=== PATIENT | female | born 1985 | race Caucasian/White ===

== ENCOUNTER → 2016-11-02 | Outpatient (CLI) | payer OTHER ==
[2016-11-02 13:51] LABS: Basophils % (A) 0 %; CH 30.7; CHCM 32.5; Eosinophils # (A) 0.2 k/uL (0-0.7); Eosinophils % (A) 2 %; HCT 41.2 % (34.0-46.0); HDW 2.66; HGB 13.5 gm/dL (11.4-16.0); Luc # (Auto) 0.22; Luc % (Auto) 2; Lymphocytes # (A) 2.6 k/uL (1.0-4.8); Lymphocytes % (A) 24 %; MCHC 32.7 g/dL (31.0-37.0); Mean Platelet Volume 6.6; Monocytes # (A) 0.5 k/uL (0-1.0); Monocytes % (A) 4 %; Neutrophils # (A) 7.6 k/uL (1.3-7.7); Neutrophils % (A) 68 %; RBC 4.34 m/uL (3.80-5.40); RDW 13.6 % (11.5-15.5); WBC 11.2 k/uL (3.8-10.6); WBC (Perox) 11.68
[2016-11-02 14:11] LABS: ALT 76 U/L (9-52); AST 53 U/L (14-36); Alkaline Phosphatase 151 U/L (38-126); Anion Gap 12 mmol/L; Blood Urea Nitrogen 5 mg/dL (7-17); Calcium 9.4 mg/dL (8.4-10.2); Carbon Dioxide 24 mmol/L (22-30); Chloride 106 mmol/L (98-107); Cholesterol 171 mg/dL (<200); Creatine Kinase 80 U/L (30-135); Glucose 91 mg/dL (74-99); HDL Cholesterol 49 mg/dL (40-60); Iron 95 ug/dL (37-170); Non-African American GFR(MDRD) >60 (>60 ml/min/1.73 sqM); Potassium 4.3 mmol/L (3.5-5.1); Sodium 142 mmol/L (137-145); Total Bilirubin 0.5 mg/dL (0.2-1.3); Triglycerides 122 mg/dL (<150)
[2016-11-02 14:20] LABS: % Iron Saturation 31.7 % (20-50); Total Iron Binding Capacity 300 ug/dL (265-497)
[2016-11-02 14:55] LABS: Erythrocyte Sedimentation Rate 40 mm/hr (0-20)
[2016-11-02 15:00] LABS: Vitamin B12 544 pg/mL (239-931)
[2016-11-09 07:11] LABS: Cortisol, Urine Free by LC-MS 4.9 ug/L
== END | disposition home or self-care (01) ==
LOC: LABWHC1 13:01
PROVIDERS: ATTEND Family Medicine
DX: Z00.00 Encounter for general adult medical examination without abnormal findings (principal); T38.0X5A Adverse effect of glucocorticoids and synthetic analogues, initial encounter; D64.9 Anemia, unspecified
CPT/HCPCS: 36415; 80053; 80061; 82306; 82530; 82533; 82550; 82607; 82728; 83540; 83550; 84443; 85025; 85652

== ENCOUNTER 2016-11-07 06:42 | Day surgery (SDC) | payer OTHER ==
[2016-11-03 11:16] VITALS: BMI 33.4
[2016-11-07 08:08] VITALS: RESP 16; TEMP 96.8
[2016-11-07] MEDS ORDERED: LACTATED RINGERS 1,000 ML IV ONE (08:22)
[2016-11-07] MEDS ORDERED: LIDOCAINE 1% 20 ML VIAL (10MG/ML) FOR IV START INTRADERMA ONE (08:24)
[2016-11-07] MEDS ORDERED: LACTATED RINGERS 1,000 ML IV SCH (08:30)
[2016-11-07] MEDS ORDERED: fentaNYL (PF) 50 MCG/ML 2 ML AMP ONE (09:04)
[2016-11-07] MEDS ORDERED: BUPIVACAINE (PF) 0.5% 30 ML VIAL ONE (09:04)
[2016-11-07] MEDS ORDERED: MIDAZOLAM 2 MG/2 ML VIAL ONE (09:04)
[2016-11-07] MEDS ORDERED: TRIAMCINOLONE ACETONIDE 40 MG/ML 1 ML VIAL ONE (09:04)
--- NOTE | 2016-11-07 09:22 | P.PCN ---
Date of Procedure: 11/07/16 Procedure(s) Performed: Preoperative diagnoses= 1-bilateral sacroiliitis. Postoperative diagnoses= same as preoperative diagnosis. Procedure= bilateral sacroiliac joint steroid injection under fluoroscopic guidance. Anesthesia= conscious sedation with Versed 2 mg and fentanyl 50 micrograms and local infiltration with lidocaine 1% 4 ml Estimated blood loss=minimal. Procedure indication= the patient had a history of severe chronic low back pain , diagnosed with sacroiliitis and lumbar sacral facet arthropathy unresponsive to conservative treatment. Procedure description= the patient was seen and identified in the preoperative holding area, risks and benefits and alternative of the procedure and possible complications discussed with the patient, and he agreed with the preceding, patient signed the consent, an IV was started, and vital signs were monitored and were stable throughout the procedure, patient was placed in the prone position or table and the lumbosacral area was prepped and draped with a sterile fashion, vital signs were closely monitored during the procedure, the fluoroscopy camera was placed in the contralateral oblique view on the right sacroiliac joint and the lower part of the joint was identified, local infiltration of the skin and subcutaneous tissue with lidocaine 1% 2 mL then a 22-gauge Quincke-type spinal needle advanced slowly under fluoroscopy and placed in the posterior and inferior border of the right sacroiliac joint, placement confirmed with AP and lateral view, and after appropriate needle placement confirmed and after negative aspiration for heme and CSF and there was no paresthesia during the injection, 3 ml of Marcaine 0.5% and 40 mg of Kenalog injected after negative aspiration, the needle removed, and the entire same procedure was repeated for the left sacroiliac joint Patient tolerated the procedure well without any complication, The patient returned to supine position after the back was cleaned and a Band- Aid applied, the patient transported to recovery room in stable condition and he was monitored for 30 minutes before he was discharged home and then patient was reexamined before going home and patient was discharged in stable condition and patient will follow up with the pain clinic in a few weeks
[2016-11-07] MEDS ORDERED: IV FLUID CONTINUATION 1,000 ML IV ONE (09:30)
--- NOTE | 2016-11-07 09:43 | FL ---
EXAMINATION TYPE: FL guided pain mgmt statistic DATE OF EXAM: 11/07/2016 9:29 AM HISTORY: Pain 7 sec-2 paper films-cyndi si thelmats
[2016-11-07 10:15] VITALS: BP 129/70; PULSE 95
== END 2016-11-07 10:05 | disposition home or self-care (01) ==
LOC: ORPAIN 06:42
PROVIDERS: ATTEND Specialist
DX: G89.29 Other chronic pain (principal); M46.1 Sacroiliitis, not elsewhere classified; M46.97 Unspecified inflammatory spondylopathy, lumbosacral region; J45.909 Unspecified asthma, uncomplicated; Z88.8 Allergy status to other drugs, medicaments and biological substances
CPT/HCPCS: 80307; J2250; J3301; J3010; G0260; 80364

== ENCOUNTER → 2016-11-22 | Outpatient (CLI) | payer OTHER ==
[2016-11-22 12:41] VITALS: BP 127/80; PULSE 81; RESP 16; TEMP 98.1
--- NOTE | 2016-11-23 08:32 | P.PN ---
Subjective This is follow-up visit for this patient with a history of severe and chronic low back pain , and she will stay close with sacroiliitis, we have done interventional pain management injection, bilateral sacroiliac joint steroid injection under fluoroscopy guidance x2 , and she reported that the injection improved her low back pain significantly, but she is currently complaining of severe neck pain, with radiation towards the shoulder blade area bilaterally, she denies any motor or sensory deficit, she denies any fever or night sweats., And she reported that the neck pain increased with any movement of her neck, she had MRI of the cervical spine done more than years ago and it showed patient had C5 6 disc desiccation, complaining of migraine headache and she is currently on, verapamil 180 mg daily and Imitrex when necessary and Topamax 50 mg twice a day, ( for management of her migraine headache ) and is currently on pain medications Percocet 7.5/325 q 8 hours when necessay, Patient denies any side effects of the medication, denies excessive drowsiness or sleepiness, denies suicidal ideation, and reports that the current pain medication is NOT helping To control the pain and improve activity of daily living Physical Examinations : 1-Constitutiona : Cooperative , not in acute distress . 2-HEENT : nech ; supple , no Lymphadenopathy , no Thyromegaly , normal thyroid size . eyes : no ptosis , no icterus, no photophobia . ENT : normal of hearing , normal oropharynx , no Thrush . 3- Respiratory : Chest clear to auscultations Bilaterally , no wheezing , no Rhonchi . 4- Cardiovascular : regular rate and rhythem , S1 , S2 , no S3 , no S4. 5- Gastrointestinal : abdomen soft no tenderness , bowel sounds positive all four quadrents , no organomegally . 6- Genitourinary : Defferred . 7- neurologic : Cranial nerve II to XII intact , no focal neurological deffecit . 8-psychatric : alert , oriented X 3 , appropriate affect , intact judgment and insight . 9-Lymphatic : no Lymphadenopathy . 10- musculoskeltal : exams of the cervical spine = motor strength normal bilateral upper extremities facet loading test cervical area positive. Multiple trigger point identified in the cervical paravertebral muscles and the shoulder blade area exams of the Lumber spine = motor strength lower extremities ,thigh and legs .5/5 Assessment and plan = - Chronic low back pain secondary to sacroiliitis, low back pain improved after the sacroiliac joint steroid injection. Plan complaining of neck pain mostly secondary to cervical degenerative disc disease and myofascial pain syndrome cervical are - chronic and current use of high-risk medication (Opioids). The patient was counseled about risk of opioid use, psychological risk associated with opioids and was orally counseled to not overuse , abuse , divert ,or sell dictations to take medications as prescribed only , and to restore medication in safe location , and the patient counseled against driving while using narcotic medications, and also not to use alcohol or any illicit recreational drugs the patient's verbalized understanding that the lack of compliance will result in failure to renew narcotic prescription and possible discharge from the clinic - diagnoses, prognosis, and treatment options including but not limited to physical therapy, surgical interventions, interventional therapies and medication management including narcotics and adjuvant medication were discussed with the patient and all The questions answered -medication management =1-refill Percocet 17.5/325 every 8 hours when necessary for pain disp 30 -procedure= patient could benefit from cervical epidural steroid injection under fluoroscopy guidance and trigger point injections and cervical area Objective - Vital Signs Vital signs: Vital Signs Temp 98.1 F 11/22/16 12:34 Pulse 81 11/22/16 12:34 Resp 16 11/22/16 12:34 BP 127/80 11/22/16 12:34 Pulse Ox 100 11/22/16 12:34 Intake & Output 11/22/16 11/23/16 11/23/16 18:59 06:59 18:59 Weight 85.275 kg
== END | disposition home or self-care (01) ==
LOC: PNWHC3 11:50
PROVIDERS: ATTEND Specialist
DX: M50.30 Other cervical disc degeneration, unspecified cervical region (principal); G89.29 Other chronic pain; M46.1 Sacroiliitis, not elsewhere classified; M79.1 Myalgia; Z79.891 Long term (current) use of opiate analgesic
CPT/HCPCS: 99211

== ENCOUNTER 2016-12-03 10:51 | Emergency (ER) | payer OTHER ==
[2016-12-03 11:03] VITALS: RESP 18
--- NOTE | 2016-12-03 11:33 | ED ---
Abdominal Pain HPI - General Chief Complaint: Abdominal Pain Stated Complaint: FEMALE , SPOTTING AND CRAMPING Time Seen by Provider: 12/03/16 11:16 Source: patient Mode of arrival: ambulatory Limitations: no limitations - History of Present Illness Initial Comments: Patient is a 31-year-old female with history of anxiety/depression on lithium, hysterectomy presenting with vaginal bleeding. Patient states last night she had an uneventful intercourse with her fianc. She states this morning she woke up with diffuse lower abdominal cramping. Patient states she went to the bathroom and wiped having 10 spots of blood coming from her vagina. Patient denies worsening pain during intercourse. Patient did not try any further pain. Patient came to the ER due to vaginal spotting. She denies fever, chills , chest pain, shortness breath, nausea, vomiting, diarrhea. Denies dysuria, hematuria. Denies rectal bleeding. Patient states she had a hysterectomy 10 years ago as she had a mass on her uterus and had dysfunctional uterine bleeding. - Related Data Home Medications Medication Instructions Recorded Confirmed Famotidine [Pepcid] 20 mg PO BID 02/07/15 12/03/16 Albuterol Inhaler [Ventolin Hfa 2 puff INHALATION RT-QID PRN 09/11/15 12/03/16 Inhaler] Albuterol Nebulized [Ventolin 3 ml INHALATION RT-QID PRN 09/11/15 12/03/16 Nebulized] Montelukast [Singulair] 10 mg PO QAM 09/11/15 12/03/16 Verapamil Sr [Isoptin Sr] 180 mg PO HS 03/10/16 12/03/16 Furosemide [Lasix] 40 mg PO BID 07/01/16 12/03/16 [place] Carbonate 300 mg PO TID 07/01/16 12/03/16 Ondansetron Odt [Zofran Odt] 4 mg PO Q8HR PRN 07/01/16 12/03/16 Potassium Chloride ER [K-Dur 10] 10 meq PO TID 07/01/16 12/03/16 SUMAtriptan SUCCINATE [Imitrex] 50 mg PO BID PRN 07/01/16 12/03/16 Ferrous Sulfate [Feosol] 325 mg PO DAILY 09/15/16 12/03/16 Multivitamins, Thera [Multivitamin] 1 tab PO DAILY 09/15/16 12/03/16 oxyCODONE-APAP 7.5-325MG [Percocet 1 tab PO Q8H PRN 09/15/16 12/03/16 7.5-325 mg] Chlorhexidine Gluconate [Peridex] 15 ml PO BID 12/03/16 12/03/16 Doxepin HCl [SINEquan] 50 mg PO HS 12/03/16 12/03/16 Lactulose 10 gm PO BID PRN 12/03/16 12/03/16 Mineral Oil [Fleet Mineral Oil] 133 ml RECTAL ONCE PRN 12/03/16 12/03/16 Topiramate [Topamax] 50 mg PO BID 12/03/16 12/03/16 busPIRone HCl [Buspar] 10 mg PO TID 12/03/16 12/03/16 Previous Rx's Medication Instructions Recorded Ibuprofen [Motrin] 600 mg PO Q6HR PRN #30 tab 12/03/16 Allergies Allergy/AdvReac Type Severity Reaction Status Date / Time quetiapine fumarate AdvReac Severe Tremors/Maxx Verified 12/03/16 14:47 [From Seroquel] liam Review of Systems ROS Statement: Those systems with pertinent positive or pertinent negative responses have been documented in the HPI. Constitutional: No fever and no chills. HENT: No congestion, no rhinorrhea and no sore throat. Eyes: No discharge and no redness. Respiratory: No cough and no shortness of breath. Cardiovascular: No chest pain and no palpitations. Gastrointestinal: No nausea, no vomiting, no abdominal pain and no diarrhea. Genitourinary: No dysuria and no hematuria. Positive vaginal bleeding. Musculoskeletal: No back pain and no arthralgias. Skin: No pallor and no rash. Neurological: No dizziness and No headaches. ROS Other: All systems not noted in ROS Statement are negative. Past Medical History Past Medical History: Asthma, Fibromyalgia Additional Past Medical History / Comment(s): Anxiety, depression, chronic back pain. degenerative disc disease, migraines History of Any Multi-Drug Resistant Organisms: None Reported Past Surgical History: Hysterectomy Additional Past Surgical History / Comment(s): PREVIOUS EPIDURAL PAIN INJECTIONS Past Anesthesia/Blood Transfusion Reactions: No Reported Reaction Past Psychological History: Anxiety, Bipolar, Depression, PTSD Smoking Status: Never smoker Past Alcohol Use History: None Reported Past Drug Use History: None Reported - Past Family History Mother Family Medical History: No Reported History Father Family Medical History: Cancer, Congestive Heart Failure (CHF), COPD, Diabetes Mellitus, Hypertension Additional Family Medical History / Comment(s): throat , mouth and lung CA. triple bypass. stents., General Exam - General Exam Comments Initial Comments: Constitutional: Patient appears well-developed and well-nourished. No distress. Head: Normocephalic and atraumatic. Eyes: Conjunctivae and EOM are normal. Right eye exhibits no discharge. Left eye exhibits no discharge. No scleral icterus. Neck: Normal range of motion. Neck supple. Cardiovascular: Normal rate and regular rhythm. No murmur heard. Pulmonary/Chest: Effort normal and breath sounds normal. No respiratory distress. No wheezes. Abdominal: Soft. No distension. Mild suprapubic and right lower quadrant tenderness.. There is no rebound and no guarding. Genitourinary: Patient refusing pelvic exam at this time. Musculoskeletal: Normal range of motion. No edema or tenderness. Neurological: Patient alert and oriented to person, place, and time. Skin: Skin is warm and dry. Not diaphoretic. Nursing notes and vitals reviewed. Limitations: no limitations Course Vital Signs 12/03/16 12/03/16 11:00 13:57 Temperature 97.2 F L Pulse Rate 89 75 Respiratory 18 18 Rate Blood Pressure 125/85 121/71 O2 Sat by Pulse 99 100 Oximetry - Reevaluation(s) Reevaluation #1: 12/03/16 14:05 Patient with unremarkable ultrasound of pelvis. Patient still complaining of pain and wants repeat dose of pain medication. Patient's abdomen is soft and nontender now is worse earlier which was tender right lower quadrant. Patient offered home observation versus CAT scan for which she is requesting a CAT scan. CAT scan was ordered. Reevaluation #2: 12/03/16 14:58 Patient updated on results and agreeable to discharge with follow-up with OB/ [facility]. Medical Decision Making - Medical Decision Making Patient is a 31-year-old female presenting with vaginal spotting. Patient has a history of hysterectomy. Patient states she had intercourse last night. Patient woke up with vaginal spotting. Patient tender in the right lower quadrant. Patient with blood work showing WBC 13.4, platelets 532. Unremarkable BMP and magnesium. UA unremarkable. [place] within normal range. Pelvic ultrasound nondiagnostic. CAT scan shows a left ovarian cyst. No free fluid in the pelvis. Patient's pain controlled with IV fluids, Toradol and morphine. Patient resting completely in bed. Abdomen soft nontender. Prior to discharge, patient was resting comfortably in bed. Course of stay improved. Denies pain. Discussed physical exam and diagnostic tests with patient. Questions answered and patient is agreeable to discharge with close follow up with Primary Care Physician. Instructed to return to Emergency Department if symptoms worsen. Patient has Percocet at home for which she can use for severe pain. - Lab Data Result diagrams: 12/03/16 11:55 12/03/16 11:55 Lab Results 12/03/16 12/03/16 12/03/16 Range/Units 11:55 11:55 11:55 WBC 13.4 H (3.8-10.6) k/uL RBC 4.51 (3.80-5.40) m/uL Hgb 13.5 (11.4-16.0) gm/dL Hct 41.7 (34.0-46.0) % MCV 92.6 (80.0-100.0) fL MCH 30.0 (25.0-35.0) pg MCHC 32.4 (31.0-37.0) g/dL RDW 13.6 (11.5-15.5) % Plt Count 532 H (150-450) k/uL Neutrophils % 75 % Lymphocytes % 18 % Monocytes % 4 % Eosinophils % 2 % Basophils % 0 % Neutrophils # 10.0 H (1.3-7.7) k/uL Lymphocytes # 2.4 (1.0-4.8) k/uL Monocytes # 0.5 (0-1.0) k/uL Eosinophils # 0.3 (0-0.7) k/uL Basophils # 0.0 (0-0.2) k/uL Sodium 142 (137-145) mmol/L Potassium 3.9 (3.5-5.1) mmol/L Chloride 107 (98-107) mmol/L Carbon Dioxide 24 (22-30) mmol/L Anion Gap 11 mmol/L BUN 6 L (7-17) mg/dL Creatinine 0.80 (0.52-1.04) mg/dL Est GFR (MDRD) Af Amer >60 (>60 ml/min/1.73 sqM) Est GFR (MDRD) Non-Af >60 (>60 ml/min/1.73 sqM) Glucose 80 (74-99) mg/dL Calcium 9.3 (8.4-10.2) mg/dL Magnesium 2.1 (1.6-2.3) mg/dL Urine Color Urine Appearance (Clear) Urine pH (5.0-8.0) Ur Specific Dennis (1.001-1.035) Urine Protein (Negative) Urine Glucose (UA) (Negative) Urine Ketones (Negative) Urine Blood (Negative) Urine Nitrate (Negative) Urine Bilirubin (Negative) Urine Urobilinogen (<2.0) mg/dL Ur Leukocyte Esterase (Negative) Urine RBC (0-5) /hpf Urine WBC (0-5) /hpf Ur Squamous Epith Cells (0-4) /hpf Urine Bacteria (None) /hpf [place] 0.6 mmol/L Blood Type O Positive Blood Type Recheck No Antibody Screen NEGATIVE Spec Expiration Date 12/06/2016 - 235412/03/16 Range/Units 11:55 WBC (3.8-10.6) k/uL RBC (3.80-5.40) m/uL Hgb (11.4-16.0) gm/dL Hct (34.0-46.0) % MCV (80.0-100.0) fL MCH (25.0-35.0) pg MCHC (31.0-37.0) g/dL RDW (11.5-15.5) % Plt Count (150-450) k/uL Neutrophils % % Lymphocytes % % Monocytes % % Eosinophils % % Basophils % % Neutrophils # (1.3-7.7) k/uL Lymphocytes # (1.0-4.8) k/uL Monocytes # (0-1.0) k/uL Eosinophils # (0-0.7) k/uL Basophils # (0-0.2) k/uL Sodium (137-145) mmol/L Potassium (3.5-5.1) mmol/L Chloride (98-107) mmol/L Carbon Dioxide (22-30) mmol/L Anion Gap mmol/L BUN (7-17) mg/dL Creatinine (0.52-1.04) mg/dL Est GFR (MDRD) Af Amer (>60 ml/min/1.73 sqM) Est GFR (MDRD) Non-Af (>60 ml/min/1.73 sqM) Glucose (74-99) mg/dL Calcium (8.4-10.2) mg/dL Magnesium (1.6-2.3) mg/dL Urine Color Light Yellow Urine Appearance Clear (Clear) Urine pH 7.5 (5.0-8.0) Ur Specific Dennis 1.002 (1.001-1.035) Urine Protein Negative (Negative) Urine Glucose (UA) Negative (Negative) Urine Ketones Negative (Negative) Urine Blood Small H (Negative) Urine Nitrate Negative (Negative) Urine Bilirubin Negative (Negative) Urine Urobilinogen <2.0 (<2.0) mg/dL Ur Leukocyte Esterase Negative (Negative) Urine RBC <1 (0-5) /hpf Urine WBC <1 (0-5) /hpf Ur Squamous Epith Cells 2 (0-4) /hpf Urine Bacteria Rare H (None) /hpf [place] mmol/L Blood Type Blood Type Recheck Antibody Screen Spec Expiration Date Disposition Clinical Impression: Abdominal pain, Ovarian cyst Disposition: HOME SELF-CARE Condition: Good Instructions: Abdominal Pain (ED), Ovarian Cyst (ED) Prescriptions: Ibuprofen [Motrin] 600 mg PO Q6HR PRN #30 tab PRN Reason: pain Referrals: Fredis Palacio MD [Primary Care Provider] - 1-2 days Della Sargent DO [Doctor of Osteopathic Medicine] - 1-2 days
[2016-12-03 12:06] LABS: Basophils % (A) 0 %; CHCM 33.6; Eosinophils # (A) 0.3 k/uL (0-0.7); Eosinophils % (A) 2 %; HCT 41.7 % (34.0-46.0); HGB 13.5 gm/dL (11.4-16.0); Luc # (Auto) 0.21; Luc % (Auto) 2; Lymphocytes # (A) 2.4 k/uL (1.0-4.8); Lymphocytes % (A) 18 %; MCHC 32.4 g/dL (31.0-37.0); MCV 92.6 fL (80.0-100.0); Mean Platelet Volume 6.5; Monocytes # (A) 0.5 k/uL (0-1.0); Monocytes % (A) 4 %; Neutrophils % (A) 75 %; RBC 4.51 m/uL (3.80-5.40); RDW 13.6 % (11.5-15.5); WBC 13.4 k/uL (3.8-10.6); WBC (Perox) 13.42
[2016-12-03 12:11] LABS: Appearance,Urine Clear (Clear); Bacteria,Urine Rare /hpf; Bilirubin,Urine Negative (Negative); Glucose,Urine (UA) Negative (Negative); Ketones,Urine Negative (Negative); Leukocyte Esterase,Urine Negative (Negative); Nitrite,Urine Negative (Negative); PH, Urine 7.5 (5.0-8.0); Particle Count 1943; Protein,Urine Negative (Negative); RBC,Urine <1 /hpf (0-5); Specific Gravity,Urine 1.002 (1.001-1.035); Squamous Epithelial Cell,Urine 2 /hpf (0-4); UA Billing (MACRO vs. MICRO) MICRO; Urobilinogen,Urine <2.0 mg/dL (<2.0); WBC,Urine <1 /hpf (0-5)
[2016-12-03 12:15] LABS: Anion Gap 11 mmol/L; Blood Urea Nitrogen 6 mg/dL (7-17); Calcium 9.3 mg/dL (8.4-10.2); Carbon Dioxide 24 mmol/L (22-30); Chloride 107 mmol/L (98-107); Glucose 80 mg/dL (74-99); Lithium 0.6 mmol/L; Magnesium 2.1 mg/dL (1.6-2.3); Non-African American GFR(MDRD) >60 (>60 ml/min/1.73 sqM); Potassium 3.9 mmol/L (3.5-5.1); Sodium 142 mmol/L (137-145)
[2016-12-03] MEDS ORDERED: SODIUM CHLORIDE 0.9% 1,000 ML IV STA ×2 (12:41→13:55)
[2016-12-03] MEDS ORDERED: KETOROLAC 30 MG/ML 1 ML VIAL IVP STA (12:41)
--- NOTE | 2016-12-03 13:05 | US ---
EXAMINATION TYPE: US transvaginal DATE OF EXAM: 12/03/2016 12:50 PM COMPARISON: CT abdomen and pelvis March 09, 2016. CLINICAL HISTORY: Pain, patient states cramping and that she had 10 spots of blood on the toilet dagmar r after voiding. TECHNIQUE: Transvaginal (TV) pelvic ultrasound. Date of LMP: Patient states she had a hysterectomy 5-10 years prior, unsure of date EXAM MEASUREMENTS: Uterus: Surgically absent cm Endometrial Stripe: Surgically absent cm Right Ovary: not visualized Left Ovary: not visualized TECHNOLOGIST IMPRESSION: 1. Uterus: Surgically absent 2. Endometrium: Surgically absent 3. Right Ovary: not visualized, this could be due to atrophy/overlying bowel 4. Left Ovary: not visualized, this could be due to atrophy/overlying bowel 5. Bilateral Adnexa: wnl 6. Posterior cul-de-sac: wnl Uterus is surgically absent. No free fluid is seen in pelvic cul-de-sac. Neither ovary is clearly identified but no suspicious adnexal masses are seen bilaterally. IMPRESSION: No significant finding is seen to account for patient's symptoms.
[2016-12-03] MEDS ORDERED: RX INFO: IV CONTRAST WAS GIVEN 1 EACH MISC MISCELLANE PRN (13:39)
[2016-12-03] MEDS ORDERED: MORPHINE SULFATE 4 MG/ML SYRINGE IVP STA (13:55)
--- NOTE | 2016-12-03 14:39 | CT ---
EXAMINATION TYPE: CT abdomen pelvis w con DATE OF EXAM: 12/03/2016 2:13 PM COMPARISON: Prior CT abdomen pelvis February HISTORY: Vaginal bleeding today. Hysterectomy 5-[address] DLP: 1595.00 mGycm Automated exposure control for dose reduction was used. TECHNIQUE: Helical acquisition of images was performed from the lung bases through the pelvis. CONTRAST: Performed without Oral Contrast and with IV Contrast, patient injected with 100 mL of Omnipaque 300. FINDINGS: LUNG BASES: No significant abnormality is appreciated. LIVER/GB: The liver shows low attenuation possibly due to fatty infiltration. Focal fatty sparing adj acent to the gallbladder. Gallbladder is normal. PANCREAS: No significant abnormality is seen. SPLEEN: No significant abnormality is seen. ADRENALS: No significant abnormality is seen. KIDNEYS: No significant abnormality is seen. RETROPERITONEAL ADENOPATHY: None visualized REPRODUCTIVE ORGANS: Postop changes are stable status post hysterectomy, ovaries show possible cystic focus on the left URINARY BLADDER: No significant abnormality is seen. PELVIC ADENOPATHY: None visualized. OSSEOUS STRUCTURES: No significant abnormality is seen. BOWEL: No significant abnormality is seen. OTHER: IMPRESSION: POSTOP CHANGES. PROBABLE FATTY INFILTRATION OF THE LIVER. ADDITIONAL FINDINGS ABOVE.
[2016-12-03 15:00] VITALS: BP 128/63; PULSE 79; TEMP 97.9
== END 2016-12-03 15:00 | disposition home or self-care (01) ==
LOC: EC 10:51
DX: R10.31 Right lower quadrant pain (principal); N83.202 Unspecified ovarian cyst, left side; N93.9 Abnormal uterine and vaginal bleeding, unspecified; Z90.710 Acquired absence of both cervix and uterus; J45.909 Unspecified asthma, uncomplicated; M79.7 Fibromyalgia; G43.909 Migraine, unspecified, not intractable, without status migrainosus; F31.9 Bipolar disorder, unspecified; F43.10 Post-traumatic stress disorder, unspecified; F41.9 Anxiety disorder, unspecified; Z79.899 Other long term (current) drug therapy
CPT/HCPCS: 36415; 86900; 86901; 80048; 80178; 83735; 85025; 86850; 81001; 87086; 76830; 74177; 99284; 96374; 96375; 96361 ×2; J2270; J1885; Q9967

== ENCOUNTER 2016-12-04 19:15 | Emergency (ER) | payer OTHER ==
[2016-12-04 19:29] VITALS: TEMP 99.3
--- NOTE | 2016-12-04 20:00 | ED ---
General Adult HPI - General Chief complaint: Abdominal Pain Stated complaint: Spotting/female Time Seen by Provider: 12/04/16 19:42 Source: patient, RN notes reviewed Mode of arrival: ambulatory Limitations: no limitations - History of Present Illness Initial comments: This is a 31-year-old female who presents with a vaginal spotting that started yesterday. Patient admits to some cramping. Patient states she had a hysterectomy in 2005 and has never had problems like this. Patient states she was treated in the yesterday and had an ultrasound and a CT scan which determined that she had an ovarian cyst. Patient was concerned because she had more spotting today. Patient states she notices the blood after she wipes after urinating. Patient denies any blood with bowel movements. Patient admits to some mild nausea. Patient denies any fever/chills, hematuria, dysuria , constipation/diarrhea, vomiting. Patient states she has chronic back pain. Patient denies any recent shortness breath, chest pain, back pain, numbness, tingling, hematuria, headache, or visual changes, or any other complaints. - Related Data Home Medications Medication Instructions Recorded Confirmed Famotidine [Pepcid] 20 mg PO BID 02/07/15 12/04/16 Albuterol Inhaler [Ventolin Hfa 2 puff INHALATION RT-QID PRN 09/11/15 12/04/16 Inhaler] Albuterol Nebulized [Ventolin 2.5 mg INHALATION RT-QID PRN 09/11/15 12/04/16 Nebulized] Montelukast [Singulair] 10 mg PO QAM 09/11/15 12/04/16 Verapamil Sr [Isoptin Sr] 180 mg PO HS 03/10/16 12/04/16 Furosemide [Lasix] 40 mg PO BID 07/01/16 12/04/16 [place] Carbonate 300 mg PO TID 07/01/16 12/04/16 Ondansetron Odt [Zofran Odt] 4 mg PO Q8HR PRN 07/01/16 12/04/16 Potassium Chloride ER [K-Dur 10] 10 meq PO TID 07/01/16 12/04/16 SUMAtriptan SUCCINATE [Imitrex] 50 mg PO BID PRN 07/01/16 12/04/16 Ferrous Sulfate [Feosol] 325 mg PO DAILY 09/15/16 12/04/16 Multivitamins, Thera [Multivitamin] 1 tab PO DAILY 09/15/16 12/04/16 oxyCODONE-APAP 7.5-325MG [Percocet 1 tab PO BID PRN 09/15/16 12/04/16 7.5-325 mg] Chlorhexidine Gluconate [Peridex] 15 ml PO BID 12/03/16 12/04/16 Doxepin HCl [SINEquan] 50 mg PO HS 12/03/16 12/04/16 Lactulose 10 gm PO BID PRN 12/03/16 12/04/16 Mineral Oil [Fleet Mineral Oil] 133 ml RECTAL ONCE PRN 12/03/16 12/04/16 Topiramate [Topamax] 50 mg PO BID 12/03/16 12/04/16 busPIRone HCl [Buspar] 10 mg PO TID 12/03/16 12/04/16 Previous Rx's Medication Instructions Recorded Ibuprofen [Motrin] 600 mg PO Q6HR PRN #30 tab 12/03/16 Ciprofloxacin HCl [Cipro] 250 mg PO Q12HR 10 Days 12/04/16 metroNIDAZOLE [Flagyl] 500 mg PO TID 10 Days 12/04/16 Allergies Allergy/AdvReac Type Severity Reaction Status Date / Time quetiapine fumarate AdvReac Severe Tremors/Maxx Verified 12/04/16 20:05 [From Seroquel] liam Review of Systems ROS Statement: Those systems with pertinent positive or pertinent negative responses have been documented in the HPI. ROS Other: All systems not noted in ROS Statement are negative. Past Medical History Past Medical History: Asthma, Fibromyalgia Additional Past Medical History / Comment(s): Anxiety, depression, chronic back pain. degenerative disc disease, migraines History of Any Multi-Drug Resistant Organisms: None Reported Past Surgical History: Hysterectomy Additional Past Surgical History / Comment(s): PREVIOUS EPIDURAL PAIN INJECTIONS Past Anesthesia/Blood Transfusion Reactions: No Reported Reaction Past Psychological History: Anxiety, Bipolar, Depression, PTSD Smoking Status: Never smoker Past Alcohol Use History: None Reported Past Drug Use History: None Reported - Past Family History Mother Family Medical History: No Reported History Father Family Medical History: Cancer, Congestive Heart Failure (CHF), COPD, Diabetes Mellitus, Hypertension Additional Family Medical History / Comment(s): throat , mouth and lung CA. triple bypass. stents., General Exam - General Exam Comments Initial Comments: General: The patient is awake and alert, in no distress, and does not appear acutely ill. Eye: Pupils are equal, round and reactive to light, extra-ocular movements are intact. No nystagmus. There is normal conjunctiva bilaterally. No signs of icterus. Ears: TMs pink and pearly with intact cone of light bilaterally. Normal external ear canals Nose: Nasal turbinates pink and moist Mouth and throat: There are moist mucous membranes and no oral lesions. Neck: The neck is supple, there is no tenderness or JVD. Cardiovascular: There is a regular rate and rhythm. No murmur, rub or gallop is appreciated. Respiratory: Lungs are clear to auscultation, respirations are non-labored, breath sounds are equal. No wheezes, stridor, rales, or rhonchi. Gastrointestinal: There is tenderness to the right and left lower quadrants of the abdomen. No rebound or guarding or rigidity. Soft, non-distended, abdomen without masses or organomegaly noted. No CVA tenderness. Bowel sounds are unremarkable. Musculoskeletal: Normal ROM, no tenderness. Strength 5/5. Sensation intact. Radial Pulses equal bilaterally 2+. Neurological: A&O x 3. CN II-XII intact, There are no obvious motor or sensory deficits. Coordination appears grossly intact. Speech is normal. Skin: Skin is warm and dry and no rashes or lesions are noted. Psychiatric: Cooperative, appropriate mood & affect, normal judgment. Limitations: no limitations Rectal exam: Present: normal inspection, normal rectal tone. Absent: hemorrhoids (No fissure.) External exam: Present: normal external exam. Absent: erythema, swelling, lesions, lacerations Speculum exam: Present: normal speculum exam (No bleeding or discharge present. Patient does not have a cervix due to hysterectomy.). Absent: erythema, foreign body, laceration By manual exam: Present: adnexal tenderness Course Vital Signs 12/04/16 12/04/16 12/04/16 19:26 22:12 23:25 Temperature 99.3 F Pulse Rate 94 92 78 Respiratory 18 16 16 Rate Blood Pressure 141/88 134/78 127/68 O2 Sat by Pulse 100 98 97 Oximetry Medical Decision Making - Medical Decision Making This is a 31-year-old female presents with vaginal spotting started yesterday. Patient states she has a diagnosis of an ovarian cyst yesterday in the [facility]. On physical exam There is tenderness to the right and left lower quadrants of the abdomen. Soft, non-distended, abdomen without masses or organomegaly noted. There is no rebound or guarding present. No CVA tenderness. Bowel sounds are unremarkable. Speculum exam did not show any bleeding or discharge. Patient had some left and right adnexal tenderness. CBC was checked and hemoglobin is within normal limits. White blood cell count is elevated. Rectal exam within normal limits, no sign of fissure. Hemoccult is negative. Patient had a negative CT of the abdomen and a transvaginal US yesterday which was within normal limits. UA done yesterday was within normal limits. I reexamined the patient and patient had right lower quadrant tenderness with mild rebound. At this time an ultrasound of the appendix was done and reviewed showing: #1 the appendix is not well visualized. No significant inflammation is noted in the visualized tubular structure in the right lower quadrant of the abdomen, however this is inconclusive nondiagnostic evaluation. #2 multiple lymph nodes are noted in the area of the right lower quadrant of the abdomen. Reported by Dr. Portillo. I spoke with on the Phone and he stated That He Also Reviewed the Patient's CT from Yesterday and Did Not See Any Abnormalities of the Appendix. I discussed the results with patient. I discussed that patient was put on a course of Cipro and Flagyl for colitis as her white count was elevated. I discussed the patient should avoid alcohol while taking Flagyl. I discussed that patient needs to follow up with her PCP tomorrow. I discussed return parameters. Please use medication as discussed. Please return to emergency room if the symptoms increase or worsen or for any other concerns. I discussed this case with attending physician Dr. Cox who agrees with the plan as stated above. - Lab Data Result diagrams: 12/04/16 20:10 Lab Results 12/04/16 12/04/16 Range/Units 20:10 21:13 WBC 16.6 H (3.8-10.6) k/uL RBC 4.28 (3.80-5.40) m/uL Hgb 12.9 (11.4-16.0) gm/dL Hct 40.2 (34.0-46.0) % MCV 94.0 (80.0-100.0) fL MCH 30.3 (25.0-35.0) pg MCHC 32.2 (31.0-37.0) g/dL RDW 13.6 (11.5-15.5) % Plt Count 487 H (150-450) k/uL Neutrophils % 78 % Lymphocytes % 15 % Monocytes % 3 % Eosinophils % 2 % Basophils % 1 % Neutrophils # 13.0 H (1.3-7.7) k/uL Lymphocytes # 2.5 (1.0-4.8) k/uL Monocytes # 0.6 (0-1.0) k/uL Eosinophils # 0.3 (0-0.7) k/uL Basophils # 0.1 (0-0.2) k/uL Stool Occult Blood Negative (Negative) Disposition Clinical Impression: Colitis Disposition: HOME SELF-CARE Condition: Good Instructions: Colitis (ED) Additional Instructions: Please finish entire course of antibiotics. Please do not drink alcohol while taking Flagyl. Please use Tylenol or Motrin as needed for any pain. Please follow-up with her primary care physician tomorrow. Please return to the [facility] for any worsening symptoms or for any further concerns. Prescriptions: Ciprofloxacin HCl [Cipro] 250 mg PO Q12HR 10 Days metroNIDAZOLE [Flagyl] 500 mg PO TID 10 Days Referrals: Fredis Palacio MD [Primary Care Provider] - 1-2 days Time of Disposition: 23:25
[2016-12-04 20:24] LABS: Basophils # (A) 0.1 k/uL (0-0.2); Basophils % (A) 1 %; CH 30.9; Eosinophils # (A) 0.3 k/uL (0-0.7); Eosinophils % (A) 2 %; HCT 40.2 % (34.0-46.0); HDW 2.77; HGB 12.9 gm/dL (11.4-16.0); Luc # (Auto) 0.22; Luc % (Auto) 1; Lymphocytes # (A) 2.5 k/uL (1.0-4.8); Lymphocytes % (A) 15 %; MCH 30.3 pg (25.0-35.0); MCHC 32.2 g/dL (31.0-37.0); Mean Platelet Volume 7.2; Monocytes # (A) 0.6 k/uL (0-1.0); Monocytes % (A) 3 %; Neutrophils % (A) 78 %; RBC 4.28 m/uL (3.80-5.40); RDW 13.6 % (11.5-15.5); WBC 16.6 k/uL (3.8-10.6); WBC (Perox) 16.65
[2016-12-04] MEDS ORDERED: HYDROmorphone 1 MG/ML 1 ML SYRINGE IVP STA (21:56)
[2016-12-04 22:12] VITALS: RESP 16
--- NOTE | 2016-12-04 22:59 | US ---
EXAMINATION TYPE: US abdomen APPY DATE OF EXAM: 12/04/2016 10:33 PM COMPARISON: CT abdomen pelvis December 03, 2016. CLINICAL HISTORY: Pain. RLQ pain, no fever APPENDIX AP Diameter (normal < 6mm): 3.8 mm Measured outer wall to outer wall. Is the appendix seen in its entirety from the proximal cecum to distal end: no Is the appendix compressible: yes Does the appendix wall appear hypervascular: no Is an appendicolith present: no Is there inflammatory changes or free fluid present: no TECHNOLOGIST IMPRESSION: Appendix not seen with certainty, tubular structure anterior to vessels RLQ measuring 3.8mm appearing wnl. Lymph nodes noted RLQ measuring 0.9 x 0.6 x 1.4cm and 0.6 x 0.6 x 0.7 cm IMPRESSION: 1. The appendix is not well visualized. No significant inflammation is noted in the visualized tubula r structure in the right lower quadrant of abdomen, however this is inconclusive nondiagnostic evalua tion. 2. Multiple lymph nodes are noted in the area of right lower quadrant of abdomen. A phone report is given to Ruth Ann Rivers the PAC at the time of the dictation.
[2016-12-04 23:26] VITALS: BP 127/68; PULSE 78
== END 2016-12-04 23:25 | disposition home or self-care (01) ==
LOC: EC 19:15
DX: K52.9 Noninfective gastroenteritis and colitis, unspecified (principal); J45.909 Unspecified asthma, uncomplicated; M79.7 Fibromyalgia; G43.909 Migraine, unspecified, not intractable, without status migrainosus; F43.10 Post-traumatic stress disorder, unspecified; F31.9 Bipolar disorder, unspecified; F41.9 Anxiety disorder, unspecified; Z90.710 Acquired absence of both cervix and uterus; Z79.899 Other long term (current) drug therapy; Z88.8 Allergy status to other drugs, medicaments and biological substances
CPT/HCPCS: 36415; 85025; 82272; 76705; 99284; 96374; J1170

== ENCOUNTER 2016-12-19 10:35 | Emergency (ER) | payer OTHER ==
[2016-12-19 10:42] VITALS: RESP 18
--- NOTE | 2016-12-19 11:04 | ED ---
Abdominal Pain HPI - General Chief Complaint: Abdominal Pain Stated Complaint: constipation Time Seen by Provider: 12/19/16 10:52 Source: patient, RN notes reviewed Mode of arrival: ambulatory Limitations: no limitations - History of Present Illness Initial Comments: 31 yo female presents to the ER with cc of constipation. Patient states he had she had a colitis a few weeks ago and now she is having comes having bowel movements. Patient states that she's done enema she is in lactulose and she just cannot seem to have a bowel movement. Patient states that she's pushed and nothing seems to come out. Patient states that she was concerned due to the continued feeling of needing To go and unable to go so she thought that she should be evaluated. Patient states that she is not currently having any other symptoms at this time. Patient denies any recent fever, chills, shortness of breath, chest pain, back pain, nausea vomiting, numbness or tingling, dysuria or hematuria, diarrhea, headaches or visual changes, or any other current symptoms. - Related Data Home Medications Medication Instructions Recorded Confirmed Famotidine [Pepcid] 20 mg PO BID 02/07/15 12/19/16 Albuterol Inhaler [Ventolin Hfa 2 puff INHALATION RT-QID PRN 09/11/15 12/19/16 Inhaler] Albuterol Nebulized [Ventolin 2.5 mg INHALATION RT-QID PRN 09/11/15 12/19/16 Nebulized] Montelukast [Singulair] 10 mg PO QAM 09/11/15 12/19/16 Verapamil Sr [Isoptin Sr] 180 mg PO HS 03/10/16 12/19/16 Furosemide [Lasix] 40 mg PO BID 07/01/16 12/19/16 Ondansetron Odt [Zofran Odt] 4 mg PO Q8HR PRN 07/01/16 12/19/16 Potassium Chloride ER [K-Dur 10] 10 meq PO TID 07/01/16 12/19/16 SUMAtriptan SUCCINATE [Imitrex] 50 mg PO BID PRN 07/01/16 12/19/16 oxyCODONE-APAP 7.5-325MG [Percocet 1 tab PO DAILY PRN 09/15/16 12/19/16 7.5-325 mg] Doxepin HCl [SINEquan] 50 mg PO HS 12/03/16 12/19/16 Lactulose 10 gm PO BID PRN 12/03/16 12/19/16 Topiramate [Topamax] 50 mg PO BID 12/03/16 12/19/16 busPIRone HCl [Buspar] 10 mg PO TID 12/03/16 12/19/16 [place] Carbonate [Lithobid] 300 mg PO TID 12/19/16 12/19/16 Na Phos,M-B/Na Phos,Di-Ba [Fleet 133 ml RECTAL ONCE PRN 12/19/16 12/19/16 Adult] Allergies Allergy/AdvReac Type Severity Reaction Status Date / Time quetiapine fumarate AdvReac Severe Tremors/Maxx Verified 12/19/16 11:02 [From Seroquel] liam Review of Systems ROS Statement: Those systems with pertinent positive or pertinent negative responses have been documented in the HPI. ROS Other: All systems not noted in ROS Statement are negative. Past Medical History Past Medical History: Asthma, Fibromyalgia Additional Past Medical History / Comment(s): Anxiety, depression, chronic back pain. degenerative disc disease, migraines colits ibs History of Any Multi-Drug Resistant Organisms: None Reported Past Surgical History: Hysterectomy Additional Past Surgical History / Comment(s): PREVIOUS EPIDURAL PAIN INJECTIONS Past Anesthesia/Blood Transfusion Reactions: No Reported Reaction Past Psychological History: Anxiety, Bipolar, Depression, PTSD Smoking Status: Never smoker Past Alcohol Use History: None Reported Past Drug Use History: None Reported - Past Family History Mother Family Medical History: No Reported History Father Family Medical History: Cancer, Congestive Heart Failure (CHF), COPD, Diabetes Mellitus, Hypertension Additional Family Medical History / Comment(s): throat , mouth and lung CA. triple bypass. stents., General Exam - General Exam Comments Initial Comments: General: The patient is awake and alert, in no distress, and does not appear acutely ill. Eye: Pupils are equal, round. Ears, nose, mouth and throat: There are moist mucous membranes. Neck: The neck is supple, there is no tenderness. Cardiovascular: There is a regular rate and rhythm. No murmur, rub or gallop is appreciated. Respiratory: Lungs are clear to auscultation, respirations are non-labored, breath sounds are equal. No wheezes, stridor, rales, or rhonchi. Gastrointestinal: Soft, non-distended, non-tender abdomen without masses or organomegaly noted. There is no rebound or guarding present. No CVA tenderness. Bowel sounds are unremarkable. Back: There is no tenderness to palpation in the midline. There is no obvious deformity. No rashes noted. Musculoskeletal: Normal ROM, no tenderness, There is no pedal edema. There is no calf tenderness or swelling. Sensation intact. Pulses equal bilaterally 2+. Neurological: CN II-XII intact, There are no obvious motor or sensory deficits. Coordination appears grossly intact. Speech is normal. Skin: Skin is warm and dry and no rashes or lesions are noted. Psychiatric: Cooperative, appropriate mood & affect, normal judgment. Limitations: no limitations Course Vital Signs 12/19/16 10:38 Temperature 98.2 F Pulse Rate 88 Respiratory 18 Rate Blood Pressure 137/95 O2 Sat by Pulse 100 Oximetry Medical Decision Making - Medical Decision Making 31-year-old female presents emergency department chief complaint of constipation. Patient's abdomen is soft and nontender at this time. It isn't patient did have a good bowel movement. At this time the patient's feeling much better and states that she like to go home. We discussed continued outpatient follow-up and return parameters. Patient's H&H understood all questions were answered. She will be discharged. - Radiology Data Radiology results: report reviewed, image reviewed Disposition Clinical Impression: Constipation Disposition: HOME SELF-CARE Condition: Stable Instructions: Constipation (ED) Additional Instructions: Please use medication as discussed. Please follow up with family doctor if symptoms have not improved over the next two days. Please return to the emergency room if your symptoms increase or worsen or for any other concerns. Referrals: Fredis Palacio MD [Primary Care Provider] - 1-2 days Time of Disposition: 12:53
--- NOTE | 2016-12-19 11:30 | XR ---
EXAMINATION TYPE: XR abdomen 2V DATE OF EXAM: 12/19/2016 11:10 AM CLINICAL HISTORY: Abdominal pain and constipation. History of colitis. TECHNIQUE: Supine, and upright views of the abdomen are obtained. COMPARISON: CT abdomen pelvis December 03, 2016. FINDINGS: Scattered gas is seen in non-distended stomach and small bowel loops. Gas and fecal mater ial is seen in non-distended colon. There is no visceromegaly, pneumoperitoneum, or abnormal calcif ication appreciated. The lung bases are clear and the osseous structures are intact. IMPRESSION: Overall nonobstructive bowel gas pattern.
[2016-12-19 13:00] VITALS: BP 124/77; PULSE 85; TEMP 97.7
== END 2016-12-19 13:00 | disposition home or self-care (01) ==
LOC: EC 10:35
DX: K59.00 Constipation, unspecified (principal); J45.909 Unspecified asthma, uncomplicated; M79.7 Fibromyalgia; F41.9 Anxiety disorder, unspecified; G43.909 Migraine, unspecified, not intractable, without status migrainosus; K58.9 Irritable bowel syndrome, unspecified; F31.9 Bipolar disorder, unspecified; F43.10 Post-traumatic stress disorder, unspecified; Z79.899 Other long term (current) drug therapy; Z88.8 Allergy status to other drugs, medicaments and biological substances
CPT/HCPCS: 74020; 99284

== ENCOUNTER → 2016-12-30 | Outpatient (CLI) | payer OTHER ==
[2016-12-30 13:21] LABS: Appearance,Urine Cloudy (Clear); Bilirubin,Urine Negative (Negative); Glucose,Urine (UA) Negative (Negative); Ketones,Urine Negative (Negative); Leukocyte Esterase,Urine Negative (Negative); Nitrite,Urine Negative (Negative); Particle Count 2987; Protein,Urine Negative (Negative); Specific Gravity,Urine 1.003 (1.001-1.035); Squamous Epithelial Cell,Urine 11 /hpf (0-4); UA Billing (MACRO vs. MICRO) MICRO; Urobilinogen,Urine <2.0 mg/dL (<2.0); WBC,Urine 1 /hpf (0-5)
[2016-12-30 13:25] LABS: Anion Gap 13 mmol/L; Blood Urea Nitrogen 5 mg/dL (7-17); Calcium 9.4 mg/dL (8.4-10.2); Carbon Dioxide 23 mmol/L (22-30); Chloride 105 mmol/L (98-107); Glucose 81 mg/dL (74-99); Magnesium 1.9 mg/dL (1.6-2.3); Non-African American GFR(MDRD) >60 (>60 ml/min/1.73 sqM); Phosphorous 3.2 mg/dL (2.5-4.5); Potassium 3.8 mmol/L (3.5-5.1); Sodium 141 mmol/L (137-145)
[2016-12-30 13:45] LABS: Creatinine,Urine Random 41.9 mg/dL
== END | disposition home or self-care (01) ==
LOC: LABWHC1 12:37
PROVIDERS: ATTEND Nurse Practitioner Family
DX: N39.0 Urinary tract infection, site not specified (principal); E55.9 Vitamin D deficiency, unspecified; R60.9 Edema, unspecified
CPT/HCPCS: 36415; 80048; 81001; 82306; 82570; 83735; 84100; 84156

== ENCOUNTER 2017-01-06 09:16 | Day surgery (SDC) | payer OTHER ==
[2017-01-04 10:18] VITALS: BMI 31.9
[~2017-01-06 09:16] MED LIST: LACTATED RINGERS 1,000 ML IV SCH
[2017-01-06 09:55] VITALS: TEMP 97.7
[2017-01-06] MEDS ORDERED: LIDOCAINE 1% 20 ML VIAL (10MG/ML) FOR IV START INTRADERMA ONE (10:03)
[2017-01-06] MEDS ORDERED: PROPOFOL 10 MG/ML 20 ML VIAL IV ONE (11:07)
--- NOTE | 2017-01-06 11:23 | P.PCN ---
Date of Procedure: 01/06/17 Procedure(s) Performed: BRIEF HISTORY: Patient is a 31-year-old pleasant white female, scheduled for an elective colonoscopy as a part of evaluation of chronic constipation and intermittent rectal bleeding of several months duration. PROCEDURE PERFORMED: Colonoscopy. PREOPERATIVE DIAGNOSIS: Chronic constipation and intermittent rectal bleeding. IV sedation per Anesthesia. PROCEDURE: After informed consent was obtained, the patient, was brought into the endoscopy unit. IV sedation was administered by Anesthesia under continuous monitoring. Digital rectal examination was normal. Initially the Olympus CF- 160 flexible video colonoscope was then inserted in the rectum, gradually advanced into the cecum without any difficulty. Careful examination was performed as the scope was gradually being withdrawn. Ileocecal valve and the appendiceal orifice were visualized and appeared normal. Prep was excellent. Mucosa of the cecum, ascending colon, transverse colon, descending colon, sigmoid colon, and rectum appeared normal. Retroflexion was performed in the rectum and no lesions were seen. The patient tolerated the procedure well. IMPRESSION: Normal-appearing colon from rectum to cecum with no evidence of colorectal neoplasia . RECOMMENDATIONS: Findings of this examination were discussed with the patient as well as a family. She was advised to be a high-fiber diet, take fiber supplements a regular basis and start [id number] MiraLAX as needed.
[2017-01-06 12:05] VITALS: BP 131/89; PULSE 73; RESP 16
== END 2017-01-06 12:18 | disposition home or self-care (01) ==
LOC: ORWHC2ENDO 09:16
PROVIDERS: ATTEND Internal Medicine Gastroenterology
DX: K59.09 Other constipation (principal); K62.5 Hemorrhage of anus and rectum; F41.9 Anxiety disorder, unspecified; M79.7 Fibromyalgia; K58.9 Irritable bowel syndrome, unspecified; Z79.891 Long term (current) use of opiate analgesic; Z79.899 Other long term (current) drug therapy; Z88.8 Allergy status to other drugs, medicaments and biological substances; Z87.891 Personal history of nicotine dependence
CPT/HCPCS: 45378; J2704

== ENCOUNTER 2017-01-25 12:35 | Inpatient (IN) | payer MEDICAID, OTHER ==
--- NOTE | 2017-01-25 13:51 | ED ---
General Adult HPI - General Chief complaint: Psychiatric Symptoms Stated complaint: Mental health Time Seen by Provider: 01/25/17 13:33 Source: patient, RN notes reviewed Mode of arrival: ambulatory Limitations: no limitations - History of Present Illness Initial comments: Patient is a pleasant 31-year-old female presenting to the emergency department complaining of depression. Onset of symptoms was over the past couple of days. Patient is increased depression. Patient does have thoughts of self-harm. Patient has thoughts of scratching herself until she draws blood. Patient does have a history of this in the past. No homicidal thoughts although patient does have anger issues. No physical complaints. No hallucinations. No alcohol or street drug use. - Related Data Home Medications Medication Instructions Recorded Confirmed Famotidine [Pepcid] 20 mg PO BID 02/07/15 01/25/17 Albuterol Inhaler [Ventolin Hfa 2 puff INHALATION RT-QID PRN 09/11/15 01/25/17 Inhaler] Albuterol Nebulized [Ventolin 2.5 mg INHALATION RT-QID PRN 09/11/15 01/25/17 Nebulized] Montelukast [Singulair] 10 mg PO QAM 09/11/15 01/25/17 Verapamil Sr [Isoptin Sr] 180 mg PO HS 03/10/16 01/25/17 Ondansetron Odt [Zofran Odt] 4 mg PO Q8HR PRN 07/01/16 01/25/17 SUMAtriptan SUCCINATE [Imitrex] 50 mg PO BID PRN 07/01/16 01/25/17 oxyCODONE-APAP 7.5-325MG [Percocet 1 tab PO DAILY PRN 09/15/16 01/25/17 7.5-325 mg] Doxepin HCl [SINEquan] 50 mg PO HS 12/03/16 01/25/17 Topiramate [Topamax] 50 mg PO BID@0800,1400 12/03/16 01/25/17 [place] Carbonate [Lithobid] 600 mg PO BID 12/19/16 01/25/17 busPIRone HCL 15 mg PO TID 01/25/17 01/25/17 Allergies Allergy/AdvReac Type Severity Reaction Status Date / Time quetiapine fumarate AdvReac Severe Tremors/Maxx Verified 01/25/17 13:33 [From Seroquel] liam Review of Systems ROS Statement: Those systems with pertinent positive or pertinent negative responses have been documented in the HPI. ROS Other: All systems not noted in ROS Statement are negative. Constitutional: Denies: fever Eyes: Denies: eye pain ENT: Denies: ear pain Respiratory: Denies: cough Cardiovascular: Denies: chest pain Endocrine: Denies: fatigue Gastrointestinal: Denies: abdominal pain Genitourinary: Denies: dysuria Musculoskeletal: Denies: back pain Skin: Denies: rash Neurological: Denies: weakness Psychiatric: Reports: depression, suicidal thoughts Past Medical History Past Medical History: Asthma, Fibromyalgia Additional Past Medical History / Comment(s): Anxiety, depression, chronic back pain. degenerative disc disease, migraines colits ibs History of Any Multi-Drug Resistant Organisms: None Reported Past Surgical History: Hysterectomy Additional Past Surgical History / Comment(s): PREVIOUS EPIDURAL PAIN INJECTIONS Past Anesthesia/Blood Transfusion Reactions: No Reported Reaction Past Psychological History: Anxiety, Bipolar, Depression, PTSD Smoking Status: Never smoker Past Alcohol Use History: None Reported Past Drug Use History: None Reported - Past Family History Mother Family Medical History: No Reported History Father Family Medical History: Cancer, Congestive Heart Failure (CHF), COPD, Diabetes Mellitus, Hypertension Additional Family Medical History / Comment(s): throat , mouth and lung CA. triple bypass. stents., Sister(s) Family Medical History: Cancer, Hyperlipidemia Additional Family Medical History / Comment(s): breast General Exam Limitations: no limitations General appearance: alert, in no apparent distress Head exam: Present: atraumatic Eye exam: Present: normal appearance, PERRL, EOMI ENT exam: Present: normal oropharynx Neck exam: Present: normal inspection Respiratory exam: Present: normal lung sounds bilaterally Cardiovascular Exam: Present: regular rate, normal rhythm GI/Abdominal exam: Present: soft. Absent: tenderness Extremities exam: Present: normal inspection Neurological exam: Present: alert Psychiatric exam: Present: flat affect Skin exam: Absent: rash, abrasion Course Vital Signs 01/25/17 12:44 Temperature 98.3 F Pulse Rate 100 Respiratory 20 Rate Blood Pressure 131/80 O2 Sat by Pulse 99 Oximetry Medical Decision Making - Medical Decision Making Patient was seen by mental health services, who will admit. - Lab Data Lab Results 04/12/17 Range/Units 14:20 Urine Opiates Screen Not Detected (NotDetected) Ur Oxycodone Screen Not Detected (NotDetected) Urine Methadone Screen Not Detected (NotDetected) Ur Propoxyphene Screen Not Detected (NotDetected) Ur Barbiturates Screen Not Detected (NotDetected) U Tricyclic Antidepress Detected H (NotDetected) Ur Phencyclidine Scrn Not Detected (NotDetected) Ur Amphetamines Screen Not Detected (NotDetected) U Methamphetamines Scrn Not Detected (NotDetected) U Benzodiazepines Scrn Not Detected (NotDetected) Urine Cocaine Screen Not Detected (NotDetected) U Marijuana (THC) Screen Not Detected (NotDetected) Disposition Clinical Impression: Depression, Suicidal ideation Disposition: TRANSFER TO PSYCH HOSP/UNIT
[2017-01-25] MEDS ORDERED: ACETAMINOPHEN TAB 325 MG TAB PO PRN (18:00)
[2017-01-25] MEDS ORDERED: MAG HYDROX/AL HYDROX/SIMETH 30 ML CUP PO PRN (18:00)
[2017-01-25] MEDS ORDERED: LORazepam 1 MG TAB PO PRN (18:00)
[2017-01-25] MEDS ORDERED: ZIPRASIDONE 20 MG VIAL IM PRN (18:00)
[2017-01-25] MEDS ORDERED: MAGNESIUM HYDROXIDE 2,400 MG/10 ML CUP PO PRN (18:00)
[2017-01-25] MEDS ORDERED: LORazepam 2 MG/ML SYRINGE IM PRN (18:02)
[2017-01-25] MEDS ORDERED: SUMAtriptan SUCCINATE 50 MG TAB PO PRN (18:03)
[2017-01-25] MEDS ORDERED: ALBUTEROL NEBULIZED 2.5 MG/3 ML INHALATION PRN (18:03)
[2017-01-25 19:14] VITALS: BMI 31.4
[2017-01-25] MEDS: DOXEPIN 25 MG CAP PO SCH (20:16)
[2017-01-25] MEDS: VERAPAMIL SR 180 MG TABLET.ER PO SCH (20:16)
[2017-01-25] MEDS: HYDROcodone/APAP 5-325MG 1 EACH TAB PO PRN (20:16)
[2017-01-25] MEDS: LITHIUM CARBONATE 300 MG CAP PO SCH (20:16)
[2017-01-25] MEDS: FAMOTIDINE 20 MG TAB PO SCH (20:16)
[2017-01-25] MEDS: busPIRone HCl 5 MG TAB PO SCH (21:37)
--- NOTE | 2017-01-25 23:21 | CONS ---
DATE OF CONSULTATION: 01/25/2017 REASON FOR CONSULTATION: Medical management, requested by Dr. Tanner. CONSULTATION: This is a very pleasant 31-year-old patient of Dr. Palacio whose chronic stable medical conditions include fibromyalgia, asthma, irritable bowel syndrome; has a bowel movement every other day; chronic insomnia, herniated disc in lower back. She presented with depression, anxiety, suicidal ideation; admitted for the same. Patient does start scratching herself until she starts bleeding. Patient has done this in the past. No homicidal ideation. REVIEW OF SYSTEMS: CONSTITUTIONAL: None. HEENT: None. RESPIRATORY: None. CARDIOVASCULAR: None. GASTROINTESTINAL: Some abdominal pain on and off. Recently had colonoscopy. GENITOURINARY: None. MUSCULOSKELETAL: Some aches and pains in the joints. DERMATOLOGICAL: None. HEMATOLOGICAL: None. LYMPHATICS: None. PSYCHIATRY: Anxiety, depression. NEUROLOGICAL: None. PAST MEDICAL HISTORY: 1. Asthma. 2. Herniated disc. 3. Fibromyalgia. 4. Irritable bowel syndrome. 5. Insomnia. 6. Migraines. PAST SURGICAL HISTORY: 1. Hysterectomy. 2. Previous epidural pain injections. 3. Dental surgery. SOCIAL HISTORY: Lives with her fianc?. Does not smoke or drink alcohol. Has a cat at home. FAMILY HISTORY: Throat, mouth and lung cancer. Triple bypass. HOME MEDICATIONS: 1. [place] carbonate 600 mg p.o. b.i.d. 2. [place] 7.5 q.4 to 6 p.r.n. 3. Buspirone 15 mg p.o. t.i.d. 4. Verapamil SR 50 mg p.o. t.i.d. 5. Topamax 50 mg p.o. b.i.d. 6. Imitrex 50 mg b.i.d. p.r.n. 7. Zofran 4 mg q.8 p.r.n. 8. Singulair 10 mg p.o. daily. 9. Pepcid 20 mg p.o. b.i.d. 10. Doxepin 50 mg at bedtime. 11. Ventolin 2.5 q.i.d. p.r.n. ALLERGIES: SEROQUEL and DEPAKOTE. On examination, temperature 97.4, pulse 91, respiration 16, blood pressure 136/84, pulse ox 98% on room air. GENERAL APPEARANCE: Well built; BMI of 31.5. Sitting up. Not in distress. EYES: Pupils equal. Conjunctivae normal. HEENT: Oral cavity reveals some missing dentition. NECK: JVD not raised. Mass not palpable. RESPIRATORY: Effort normal. LUNGS: Fair air entry. CARDIOVASCULAR: First and second sounds normal. No edema. ABDOMEN: Soft, nontender. Liver and spleen not palpable. LYMPHATIC: No lymph node palpable in neck or axillae. PSYCHIATRY: Alert and oriented x3. Anxious-appearing. NEUROLOGICAL: Pupils equal. Cranial nerves grossly intact. Power and sensation grossly intact. INVESTIGATIONS: Urine drug screen positive for tricyclic antidepressants. ASSESSMENT: 1. Intermittent asthma. 2. Chronic fibromyalgia. 3. Chronic irritable bowel syndrome. 4. Chronic insomnia. 5. Depression not otherwise specified. PLAN: Care was discussed with the patient. Home medications are to continue. Antidepressants per Dr. Tanner. Patient to follow with Dr. Palacio upon discharge.
[2017-01-26] MEDS: TOPIRAMATE 25 MG TAB PO SCH ×2 (08:39→13:05)
[2017-01-26] MEDS: FAMOTIDINE 20 MG TAB PO SCH ×2 (08:40→20:14)
[2017-01-26] MEDS: busPIRone HCl 5 MG TAB PO SCH (08:40)
[2017-01-26] MEDS: LITHIUM CARBONATE 300 MG CAP PO SCH ×2 (08:40→20:14)
[2017-01-26] MEDS: MONTELUKAST 10 MG TAB PO SCH (08:40)
[2017-01-26] MEDS: HYDROcodone/APAP 5-325MG 1 EACH TAB PO PRN ×2 (08:45→18:02)
[2017-01-26 09:37] LABS: Basophils # (A) 0.1 k/uL (0-0.2); Basophils % (A) 0 %; CHCM 32.2; Eosinophils # (A) 0.4 k/uL (0-0.7); Eosinophils % (A) 2 %; HDW 2.77; HGB 12.8 gm/dL (11.4-16.0); Luc # (Auto) 0.26; Luc % (Auto) 2; Lymphocytes # (A) 2.1 k/uL (1.0-4.8); Lymphocytes % (A) 12 %; MCH 29.9 pg (25.0-35.0); MCHC 31.9 g/dL (31.0-37.0); MCV 93.7 fL (80.0-100.0); Mean Platelet Volume 6.9; Monocytes # (A) 0.6 k/uL (0-1.0); Monocytes % (A) 3 %; Neutrophils # (A) 14.4 k/uL (1.3-7.7); Neutrophils % (A) 81 %; RBC 4.27 m/uL (3.80-5.40); RDW 14.1 % (11.5-15.5); WBC 17.7 k/uL (3.8-10.6); WBC (Perox) 18.29
[2017-01-26 11:18] LABS: ALT 37 U/L (9-52); AST 26 U/L (14-36); Alkaline Phosphatase 146 U/L (38-126); Anion Gap 14 mmol/L; Blood Urea Nitrogen 4 mg/dL (7-17); Calcium 9.8 mg/dL (8.4-10.2); Carbon Dioxide 19 mmol/L (22-30); Chloride 107 mmol/L (98-107); Glucose 120 mg/dL (74-99); Lithium 0.8 mmol/L; Non-African American GFR(MDRD) >60 (>60 ml/min/1.73 sqM); Potassium 3.8 mmol/L (3.5-5.1); Sodium 140 mmol/L (137-145); Total Bilirubin 0.5 mg/dL (0.2-1.3); Total Protein 7.2 g/dL (6.3-8.2)
[2017-01-26] MEDS ORDERED: OLANZapine 5 MG TAB PO STA (12:50)
[2017-01-26 13:35] LABS: Appearance,Urine Cloudy (Clear); Bacteria,Urine Rare /hpf; Bilirubin,Urine Negative (Negative); Glucose,Urine (UA) Negative (Negative); Ketones,Urine Negative (Negative); Leukocyte Esterase,Urine Negative (Negative); Mucus,Urine Rare /hpf; Nitrite,Urine Negative (Negative); PH, Urine 6.5 (5.0-8.0); Particle Count 8249; Protein,Urine Negative (Negative); Specific Gravity,Urine 1.004 (1.001-1.035); Squamous Epithelial Cell,Urine 6 /hpf (0-4); UA Billing (MACRO vs. MICRO) MICRO; WBC,Urine 1 /hpf (0-5)
[2017-01-26] MEDS ORDERED: OLANZapine 5 MG TAB PO PRN (17:06)
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
[2017-01-26] MEDS: DOXEPIN 25 MG CAP PO SCH (20:14)
[2017-01-26] MEDS: VERAPAMIL SR 180 MG TABLET.ER PO SCH (20:14)
[2017-01-26] MEDS: OLANZapine 5 MG TAB PO SCH (20:15)
--- NOTE | 2017-01-27 06:35 | PN ---
DATE OF SERVICE: 01/26/2017 PRESENTING COMPLAINT: Some pain in the gum. INTERVAL HISTORY: This is a patient admitted to the psychiatry unit with depression. Just had ( ) of her teeth with Dr. Wilkins about 3 days ago prior to admission. Some tenderness in the front of the gum. Denies any fever, able to tolerate a diet otherwise which is mainly soft food. Review of systems done for constitutional, cardiovascular, GI, pulmonary, HEENT; relevant findings as above. Current medications are reviewed. On examination, temperature 97.7, pulse 95 respiration 16, blood pressure 127/75, pulse ox 98% on room air. GENERAL APPEARANCE: Sitting up, not in distress. EYES: Pupils equal. Conjunctivae normal. HEENT: Tenderness in the lower gums in the anterior area. LUNGS: Clear to auscultation. CARDIOVASCULAR: First and second sounds normal. No edema. ABDOMEN: Soft, nontender. Liver and spleen not palpable. PSYCHIATRY: Alert and oriented x3. Mood and affect slightly anxious appearing. INVESTIGATIONS: White count 17.7. Potassium 3.8. BUN 4, creatinine 0.80. Platelets 492. ASSESSMENT: 1. Intermittent asthma. 2. Chronic fibromyalgia. 3. Chronic irritable bowel syndrome. 4. Chronic insomnia. 5. Depression, not otherwise specified. 6. Thrombocytoses reactive from inflammation of the gum. 7. Leukocytosis from inflammation of the lower gum ( ) by her doctor. PLAN: Patient is told to do salt and warm water gargles and use some anti-inflammatory in the form of naproxen 250 mg twice a day. Other medical treatments to continue.
[2017-01-27] MEDS: NAPROXEN 250 MG TAB PO SCH ×4 (08:37→20:44)
[2017-01-27] MEDS: TOPIRAMATE 25 MG TAB PO SCH ×2 (08:38→15:46)
[2017-01-27] MEDS: LITHIUM CARBONATE 300 MG CAP PO SCH ×2 (08:39→20:45)
[2017-01-27] MEDS: OLANZapine 5 MG TAB PO SCH ×3 (08:39→20:44)
[2017-01-27] MEDS: FAMOTIDINE 20 MG TAB PO SCH ×2 (08:39→20:43)
[2017-01-27] MEDS: MONTELUKAST 10 MG TAB PO SCH (08:39)
[2017-01-27] MEDS: ALBUTEROL INHALER 60 PUFF/8 GM INHALER INHALATION PRN ×3 (12:17→21:14)
--- NOTE | 2017-01-27 20:16 | PN ---
DATE OF SERVICE: 01/27/2017 CHIEF COMPLAINT: The patient reported depression with thoughts of harming herself. She had the impulse to scratch herself until she mel blood. She has had increasing distress with difficulties with thoughts. She has a long history of mood swings and flashbacks to past trauma. The patient has been doing fair. She had a quiet evening last night. She slept 6-1/2 hours. Today she has been up and about. She said yesterday she was feeling more distressed more of the time. She notes that today she feels a little bit better. She continues to feel that she has some overwhelming physical and mental experiences that she has trouble describing. She says that she believes she has made progress, in that those feelings are reduced. She notes that she does get into feelings where her thoughts start becoming unclear; she has difficulty organizing her thoughts. She feels that she gets flooded with emotions that she cannot describe. She gets physically tense with increased heart rate. She notes that on the day of admission when she woke up with this experience she went out for a 15-minute walk about 7 in the morning. She again walked about 15 minutes at about 11. She said the walks seemed to help a little bit, though not much. She says that in spite of journaling she has not been able to find issues that seem to cause her problems. She acknowledges poor self-esteem and seeing herself as a bad person. She had some situations come up today where somebody said something; she could not her give specifics, though she said in the way that something was said, it seemed to set off a reaction in her similar to what she has described. She went to her room and cried. She seemed to be able to get beyond the emotional reaction. She was not sure what set it off. She has been cooperative. She attends groups. She has been appropriate. Often she will be somewhat reserved in her manner. She tolerates her psychotropic medications. She is uncertain whether or not they have helped. She has not had change in her general health. MENTAL STATUS: Patient had good eye contact. Psychomotor activity was a little restless. Speech was clear. She answered questions appropriately. Her thoughts were coherent and goal-directed. Her affect was a little blunted. She smiled some. She was pleasant. Her mood was reserved, though not significantly down or depressed. She did not seem to be distressed. ASSESSMENT: I will continue the current diagnosis and treatment plan. I had an extensive discussion with the patient regarding issues of post-traumatic stress disorder and flashbacks. We discussed her using journaling to try to identify emotional issues that may be setting her off. Patient also has been able to say that she can talk about past trauma, though she is aware that she does not have any emotional response to it. We discussed ways of managing the reactions she does have, including taking frequent walks throughout the day to help reduce physiologic stress response. I will increase her Zyprexa to 5 mg 3 times a day. I discussed the option of her getting involved in a trauma therapy group that may be offered through [facility]. She was in agreement to that. We will continue to focus on stabilization. Will coordinate with [facility] for discharge planning.
[2017-01-27] MEDS: DOXEPIN 25 MG CAP PO SCH (20:43)
[2017-01-27] MEDS: VERAPAMIL SR 180 MG TABLET.ER PO SCH (20:43)
[2017-01-28] MEDS ORDERED: OLANZapine 5 MG TAB PO SCH (09:00)
[2017-01-28] MEDS: ALBUTEROL INHALER 60 PUFF/8 GM INHALER INHALATION PRN ×2 (09:01→15:15)
[2017-01-28] MEDS: TOPIRAMATE 25 MG TAB PO SCH ×2 (10:10→13:30)
[2017-01-28] MEDS: FAMOTIDINE 20 MG TAB PO SCH ×2 (10:13→20:54)
[2017-01-28] MEDS: OLANZapine 5 MG TAB PO SCH ×3 (10:13→20:54)
[2017-01-28] MEDS: NAPROXEN 250 MG TAB PO SCH ×2 (10:14→20:54)
[2017-01-28] MEDS: LITHIUM CARBONATE 300 MG CAP PO SCH ×2 (10:14→20:54)
[2017-01-28] MEDS: MONTELUKAST 10 MG TAB PO SCH (10:14)
[2017-01-28] MEDS: HYDROcodone/APAP 5-325MG 1 EACH TAB PO PRN ×2 (10:17→20:55)
--- NOTE | 2017-01-28 12:44 | P.PN ---
Progress Note - Text Interval history: Patient seen in cross coverage today for Dr. Burns. She reports that the "fish bowl is still swirling." She describes that she always has racing thoughts. She relays that her lithium was titrated up this past Monday and she has been titrated up on Zyprexa. She does not seem to be voicing any adverse psychotropic medication side effects. Mental status exam: She is alert and cooperative with the interview. Her speech is fluent, not rapid or pressured. Thought processes organized. Her mood is described as "I don't know." She relays that she has on and off thoughts of suicide but is able to discard the thoughts of suicide. She denies any thoughts of harm to others. She does not verbalize any current hallucinations. No agitation. Plan: We'll maintain current psychotropic medications. [place] levels noted to be 0.8. We'll monitor for any medication side effects. Continue to cover this patient for Dr. Burns through the weekend.
[2017-01-28] MEDS: DOXEPIN 25 MG CAP PO SCH (20:54)
[2017-01-28] MEDS: VERAPAMIL SR 180 MG TABLET.ER PO SCH (20:54)
[2017-01-29] MEDS: NAPROXEN 250 MG TAB PO SCH ×2 (08:54→20:45)
[2017-01-29] MEDS: TOPIRAMATE 25 MG TAB PO SCH ×3 (08:54→20:45)
[2017-01-29] MEDS: LITHIUM CARBONATE 300 MG CAP PO SCH ×2 (08:55→20:44)
[2017-01-29] MEDS: OLANZapine 5 MG TAB PO SCH ×2 (08:55→16:06)
[2017-01-29] MEDS: MONTELUKAST 10 MG TAB PO SCH (08:55)
[2017-01-29] MEDS: FAMOTIDINE 20 MG TAB PO SCH ×2 (08:56→20:46)
[2017-01-29] MEDS: ALBUTEROL INHALER 60 PUFF/8 GM INHALER INHALATION PRN ×4 (09:07→20:29)
--- NOTE | 2017-01-29 11:57 | P.PN ---
Progress Note - Text Interval history: Patient is seen in cross coverage today for Dr. Burns. She reports that her mood is irritable and she seems to be relating some mood swings. She makes reference to feeling that the lithium isn't working. There is a lithium level ordered for tomorrow. She gives an example of somebody trying on the air hockey game and this triggers memories from her childhood, makes her feel irritable. She seems to relay that she is eating better. Mental status exam: She is alert and cooperative with the interview. Her speech is fluent, not rapid or pressured. Her thought processes are organized. She admits to some on and off thoughts of suicide but feels safe on the unit. She denies any thoughts of harm to others. No evidence of active psychosis or current agitation. Plan: [place] level is ordered for tomorrow. We will maintain current psychotropic medication regimen. Monitor for any medication side effects. Dr. Burns will be resuming her care tomorrow.
[2017-01-29] MEDS: VERAPAMIL SR 180 MG TABLET.ER PO SCH (20:46)
[2017-01-29] MEDS: DOXEPIN 25 MG CAP PO SCH (20:47)
[2017-01-29] MEDS: HYDROcodone/APAP 5-325MG 1 EACH TAB PO PRN (20:51)
[2017-01-30] MEDS: OLANZapine 5 MG TAB PO SCH ×4 (05:35→20:40)
[2017-01-30] MEDS: ALBUTEROL INHALER 60 PUFF/8 GM INHALER INHALATION PRN ×4 (07:57→21:38)
[2017-01-30] MEDS: FAMOTIDINE 20 MG TAB PO SCH ×2 (08:22→20:40)
[2017-01-30] MEDS: LITHIUM CARBONATE 300 MG CAP PO SCH ×2 (08:22→20:40)
[2017-01-30] MEDS: NAPROXEN 250 MG TAB PO SCH ×2 (08:23→20:40)
[2017-01-30] MEDS: MONTELUKAST 10 MG TAB PO SCH (08:23)
[2017-01-30] MEDS: TOPIRAMATE 25 MG TAB PO SCH (08:24)
--- NOTE | 2017-01-30 20:39 | PN ---
DATE OF SERVICE: 01/30/2017 CHIEF COMPLAINT: The patient reported depression, thoughts of harming herself. She had the impulse to scratch herself until she mel blood. She has had increasing distress with difficulties with thoughts. She has a long history of mood swings and flashbacks to past trauma. INTERVAL HISTORY: Patient has been doing fair. She had a quiet evening last night. She slept 5-1/2 hours last night. She slept a little better the night before. Today she has been up and about. She attends groups. She gets out in the day area. She will interact with others. One of her personal activities for stress management is to write poems, and she was able to write several over the weekend. One of the focus points was for her to write some positive verse, which she was able to do. She still reports a lot of distress. She says thoughts swirl in her head. She still feels quite anxious. She does feel that she has made some progress. She has not had change in her general health. She tolerates his psychotropic medications. MENTAL STATUS: Patient sat with a little restlessness. Eye contact was good. She answered questions with direct responses. She was spontaneous and interactive. Her affect was somewhat anxious, her mood reserved. She appeared mildly distressed. ASSESSMENT: I will continue the current diagnosis and treatment plan. Diagnostic studies include that her TSH on 01/26 was 4.1. On 01/30 free T4 was 1.1, free T3 3.9. [place] level 1.0. She has a creatinine on 01/26 of 0.8. She has been showing progress. I discussed discharge planning with the patient. She seemed to be comfortable with the idea of aiming for Monday. She says that she would like to work on feeling she can manage some of her anxiety symptoms and difficult thinking with non-pharmacologic interventions. I had an extensive discussion with the patient regarding a walking program as well as breathing techniques. A handout was given. We will continue to focus on stabilization and discharge planning.
[2017-01-30] MEDS: VERAPAMIL SR 180 MG TABLET.ER PO SCH (20:40)
[2017-01-30] MEDS: DOXEPIN 25 MG CAP PO SCH (20:40)
[2017-01-31] MEDS: TOPIRAMATE 25 MG TAB PO SCH ×2 (08:34→14:08)
[2017-01-31] MEDS: LITHIUM CARBONATE 300 MG CAP PO SCH ×2 (08:35→20:32)
[2017-01-31] MEDS: FAMOTIDINE 20 MG TAB PO SCH ×2 (08:35→20:32)
[2017-01-31] MEDS: NAPROXEN 250 MG TAB PO SCH (08:35)
[2017-01-31] MEDS: MONTELUKAST 10 MG TAB PO SCH (08:35)
[2017-01-31] MEDS: OLANZapine 5 MG TAB PO SCH ×3 (08:37→20:32)
[2017-01-31] MEDS: HYDROcodone/APAP 5-325MG 1 EACH TAB PO PRN ×2 (08:37→20:37)
[2017-01-31] MEDS: ALBUTEROL INHALER 60 PUFF/8 GM INHALER INHALATION PRN ×4 (09:16→21:47)
--- NOTE | 2017-01-31 17:09 | PN ---
DATE OF SERVICE: 01/31/2017 CHIEF COMPLAINT: The patient reported depression and thoughts of harming herself. She had impulse to scratch herself until she mel blood. She has had increasing distress with difficulties with thoughts. She has a long history of mood swings and flashbacks to post trauma. INTERVAL HISTORY: Patient has been doing fairly well. She seems to be making progress. She had a quiet evening last night. She attends groups. She slept fairly well. Today, she has been up and about. She continues to report that her head feels like it is swirling though she does say it to may be a little better today. She also notes that suicide thoughts come in and out of her mind, though this has been a long-term issue. She does not see that it is a worry to her right now. She says she usually can push these thoughts aside. She says that she has developed a mild tremor in her hands and she wonders about the medications. She acknowledges feeling a little anxious about the idea of discharge. It is noted that her fianc?e with whom she lives has significant psychiatric issues as well. She notes that she is able to help support him and turn things around when he gets into distress agitation or anger. She sees that as a positive in their relationship. She slept well last night. She continues to attend groups. Generally her mood has been fairly good. She is a little apprehensive about discharge but feels that she is making progress. She has not had change in her general health. She tolerates her psychotropic medications. MENTAL STATUS: Patient was comfortable sitting near the door, which is not something she has done before. Typically she has to sit at the far end of the room with her back against the wall so that she can see the door. She answered questions appropriately. Her thoughts were clear. She was spontaneous and interactive. Her affect was a little anxious. Her mood was reserved, though not significantly depressed. She did not appear to be distressed. ASSESSMENT: I will continue the current diagnosis and treatment plan. Continue psychotropic medications the same. I discussed with the patient that she may be having some mild tremor, likely relating to just starting up and need to adjust her medications, may relate to a combination of medications. She has not shown any signs of Parkinsonism, also Zyprexa is low risk for that so it is not likely for her to develop a Parkinsonian tremor. We discussed discharge planning. Patient will be discharged tomorrow to home. A family meeting is being held this afternoon with her and her fianc?e to address issues in their relationship and follow-up plans.
[2017-01-31] MEDS: DOXEPIN 25 MG CAP PO SCH (20:32)
[2017-01-31] MEDS: VERAPAMIL SR 180 MG TABLET.ER PO SCH (20:32)
[2017-02-01 06:29] VITALS: BP 130/82; PULSE 106; RESP 18; TEMP 97.8
[2017-02-01] MEDS: LITHIUM CARBONATE 300 MG CAP PO SCH (08:18)
[2017-02-01] MEDS: TOPIRAMATE 25 MG TAB PO SCH (08:18)
[2017-02-01] MEDS: FAMOTIDINE 20 MG TAB PO SCH (08:18)
[2017-02-01] MEDS: MONTELUKAST 10 MG TAB PO SCH (08:18)
[2017-02-01] MEDS: OLANZapine 5 MG TAB PO SCH (08:18)
[2017-02-01] MEDS: HYDROcodone/APAP 5-325MG 1 EACH TAB PO PRN (08:19)
[2017-02-01] MEDS: ALBUTEROL INHALER 60 PUFF/8 GM INHALER INHALATION PRN (09:46)
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
== END 2017-02-01 12:37 | disposition home or self-care (01) | DRG 885 ==
LOC: EC 12:35 → 3MHU 16:56
PROVIDERS: ADMIT Psychiatry & Neurology Psychiatry; ATTEND Psychiatry & Neurology Psychiatry
DX: F33.3 Major depressive disorder, recurrent, severe with psychotic symptoms (principal); D72.829 Elevated white blood cell count, unspecified; F43.10 Post-traumatic stress disorder, unspecified; F51.04 Psychophysiologic insomnia; G43.909 Migraine, unspecified, not intractable, without status migrainosus; J45.20 Mild intermittent asthma, uncomplicated; K21.9 Gastro-esophageal reflux disease without esophagitis; K58.9 Irritable bowel syndrome, unspecified; M79.7 Fibromyalgia; Z79.899 Other long term (current) drug therapy; Z82.49 Family history of ischemic heart disease and other diseases of the circulatory system; Z91.5 Personal history of self-harm
CPT/HCPCS: 80053; 80178; 80306; 81001; 81025; 82075; 84439; 84443; 84481; 85025; 94640; 99285

== ENCOUNTER → 2017-02-03 | Outpatient (CLI) | payer OTHER ==
[2017-02-03 12:06] LABS: Basophils # (A) 0.1 k/uL (0-0.2); Basophils % (A) 0 %; CH 29.8; Eosinophils # (A) 0.5 k/uL (0-0.7); Eosinophils % (A) 3 %; HCT 42.6 % (34.0-46.0); HDW 2.97; HGB 13.5 gm/dL (11.4-16.0); Luc # (Auto) 0.36; Luc % (Auto) 2; Lymphocytes # (A) 2.7 k/uL (1.0-4.8); Lymphocytes % (A) 17 %; MCH 29.7 pg (25.0-35.0); MCHC 31.7 g/dL (31.0-37.0); MCV 93.6 fL (80.0-100.0); Monocytes # (A) 0.7 k/uL (0-1.0); Monocytes % (A) 5 %; Neutrophils % (A) 72 %; RBC 4.55 m/uL (3.80-5.40); RDW 13.9 % (11.5-15.5); WBC 15.3 k/uL (3.8-10.6); WBC (Perox) 15.18
== END | disposition home or self-care (01) ==
LOC: LABWHC1 11:10
PROVIDERS: ATTEND Psychiatry & Neurology Psychiatry
DX: D72.829 Elevated white blood cell count, unspecified (principal)
CPT/HCPCS: 36415; 85025

== ENCOUNTER 2017-02-20 05:38 | Day surgery (SDC) | payer OTHER ==
[2017-02-16 12:09] VITALS: BMI 31.4
[2017-02-20 06:26] VITALS: RESP 16; TEMP 97.5
[2017-02-20] MEDS ORDERED: LIDOCAINE 1% 20 ML VIAL (10MG/ML) FOR IV START INTRADERMA ONE (06:36)
[2017-02-20] MEDS ORDERED: IOHEXOL 180 MG/ML 1 ML ML ONE (07:10)
[2017-02-20] MEDS ORDERED: DEXAMETHASONE SOD PHOS (MDV) 100 MG/10 ML VIAL ONE (07:10)
[2017-02-20] MEDS ORDERED: fentaNYL (PF) 50 MCG/ML 2 ML AMP ONE (07:10)
[2017-02-20] MEDS ORDERED: MIDAZOLAM 2 MG/2 ML VIAL ONE (07:10)
--- NOTE | 2017-02-20 07:41 | P.PCN ---
Date of Procedure: 02/20/17 Procedure(s) Performed: . PROCEDURE 1. Cervical epidural steroid injection under fluoroscopic guidance, C7-T1 2. Cervical epidurogram. PREOPERATIVE DIAGNOSIS: 1- Cervical Degenerative Disc Diseases 2-myofacial pain syndrome cervical area POSTOPERATIVE DIAGNOSIS: : same as preoperative diagnoses ANESTHESIA: Local anesthesia with 1% lidocaine 3 ml and IV sedation with Versed 2 mg and Fentanyl 100 mcg. EBL 0 PROCEDURE INDICATION: The patient with neck pain and radiculitis unresponsive to conservative treatment consents for procedure. PROCEDURE DESCRIPTION / TECHNIQUE: The patient was seen and identified in the preoperative area. Risks, benefits, complications, including but not limited to infections ,bleeding , allergic reactions to the medications ,and not complete pain releife, and alternatives were discussed with the patient, the patient agreed to proceed with the procedure and signed the consent. Patient was taken to the OR and time out was completed. The patient was placed in the prone position on the procedure table. A pillow was placed under the patients chest to increase the cervical interlaminar space. The cervical area was prepped and draped in the usual sterile fashion. Vital signs were closely monitored during the procedure. Conscious sedation was used during the procedure to decrease patients anxiety. Using anterior-posterior fluoroscopy, the C7-T1 interlaminar space was identified and the skin over this site was marked and then infiltrated with 1% lidocaine subcutaneously. Subsequently, a 20-gauge 3-1/2-inch Tuohy epidural needle was inserted and advanced toward the epidural space by means of the `` hanging-drop technique and guided by AP and lateral fluoroscopy. The correct needle position in the epidural space was verified with the injection of 2 mL of the water soluble contrast dye Isovue-180 and observing an excellent epidurogram with the epidural spread of the dye, after negative aspiration for blood and CSF and in the absence of paresthesias. Again after negative aspiration, mixture containing 20 mg Dexamethasone and 2 ml of preservative- free normal saline injected and a washout of epidurogram was seen. Needle was withdrawn intact, skin was cleansed, and bandages were applied. Complications= none. Disposition= patient was placed in supine position and transferred to the recovery room area in stable condition and there was no evidence of upper or lower extremity motor or sensory deficit after the procedure patient was discharged from recovery room after discharge criteria met and home discharge instructions was given by the staff and patient will follow with the pain clinic in 2-4 weeks
--- NOTE | 2017-02-20 08:02 | FL ---
Fluoroscopy HISTORY: Pain 7 seconds fluoroscopy time supplied to the referring clinician. 1 intraoperative C-arm image documen ts the procedure. See dictated report from anesthesia.
[2017-02-20 08:06] VITALS: BP 108/73; PULSE 97
[2017-02-20] MEDS ORDERED: IV FLUID CONTINUATION 1,000 ML IV ONE (08:09)
== END 2017-02-20 08:16 | disposition home or self-care (01) ==
LOC: ORPAIN 05:38
PROVIDERS: ATTEND Specialist
DX: M50.30 Other cervical disc degeneration, unspecified cervical region (principal); M79.1 Myalgia; Z88.8 Allergy status to other drugs, medicaments and biological substances
CPT/HCPCS: 62321; 99152; J2250; Q9965; J3010; J1100; 80051; 80178; 82565; 83036; 84443; 84520

== ENCOUNTER → 2017-03-01 | Outpatient (CLI) | payer OTHER ==
[2017-03-01 14:23] LABS: Basophils # (A) 0.1 k/uL (0-0.2); Basophils % (A) 0 %; CHCM 31.8; Eosinophils # (A) 0.4 k/uL (0-0.7); Eosinophils % (A) 2 %; HCT 37.2 % (34.0-46.0); HDW 2.69; HGB 11.9 gm/dL (11.4-16.0); Luc # (Auto) 0.23; Luc % (Auto) 1; Lymphocytes # (A) 2.3 k/uL (1.0-4.8); Lymphocytes % (A) 12 %; MCH 30.4 pg (25.0-35.0); MCHC 32.1 g/dL (31.0-37.0); MCV 94.8 fL (80.0-100.0); Mean Platelet Volume 7.3; Monocytes # (A) 0.9 k/uL (0-1.0); Monocytes % (A) 4 %; Neutrophils # (A) 15.6 k/uL (1.3-7.7); Neutrophils % (A) 80 %; RBC 3.92 m/uL (3.80-5.40); RDW 14.2 % (11.5-15.5); WBC 19.5 k/uL (3.8-10.6)
[2017-03-01 15:21] LABS: Vitamin B12 440 pg/mL (239-931)
[2017-03-01 15:49] LABS: ALT 162 U/L (9-52); AST 115 U/L (14-36); Alkaline Phosphatase 144 U/L (38-126); Amylase 62 U/L (30-110); Anion Gap 13 mmol/L; Blood Urea Nitrogen 8 mg/dL (7-17); Calcium 9.2 mg/dL (8.4-10.2); Carbon Dioxide 17 mmol/L (22-30); Chloride 108 mmol/L (98-107); Glucose 161 mg/dL (74-99); Lithium 0.6 mmol/L; Magnesium 1.9 mg/dL (1.6-2.3); Non-African American GFR(MDRD) >60 (>60 ml/min/1.73 sqM); Potassium 4.2 mmol/L (3.5-5.1); Sodium 138 mmol/L (137-145); Total Bilirubin 0.6 mg/dL (0.2-1.3); Total Protein 7.4 g/dL (6.3-8.2)
== END | disposition home or self-care (01) ==
LOC: LABWHC1 13:49
PROVIDERS: ATTEND Family Medicine
DX: R53.82 Chronic fatigue, unspecified (principal); R14.0 Abdominal distension (gaseous); R10.9 Unspecified abdominal pain
CPT/HCPCS: 36415; 80053; 80178; 82150; 82607; 83690; 83735; 84439; 84443; 85025

== ENCOUNTER 2017-03-03 18:41 | Observation (INO) | payer OTHER ==
--- NOTE | 2017-03-03 21:28 | ED ---
General Adult HPI - General Chief complaint: Abdominal Pain Stated complaint: constipation Time Seen by Provider: 03/03/17 21:21 Source: patient, RN notes reviewed Mode of arrival: ambulatory Limitations: no limitations - History of Present Illness Initial comments: Patient is a 31-year-old female presents to the emergency room for evaluation of constipation. Patient states she hasn't had a bowel movement in 4 days. Patient states she passed a small hard stool yesterday. Patient states that she takes Percocet as needed for pain. Patient denies changes in diet. Patient states she tried MiraLAX and lactulose and an sjbx-dmi-xveuare enema with no relief of symptoms. Patient states it's very painful for her to make a bowel movement. Patient states she has history of hysterectomy and tubal ligation. Patient denies history of bowel obstructions. Patient denies nausea or vomiting. Patient denies chest pain or shortness of breath. Patient denies fevers or chills. - Related Data Home Medications Medication Instructions Recorded Confirmed Famotidine [Pepcid] 20 mg PO BID 02/07/15 03/03/17 Albuterol Inhaler [Ventolin Hfa 2 puff INHALATION RT-QID PRN 09/11/15 03/03/17 Inhaler] Albuterol Nebulized [Ventolin 2.5 mg INHALATION RT-QID PRN 09/11/15 03/03/17 Nebulized] Montelukast [Singulair] 10 mg PO QAM 09/11/15 03/03/17 Verapamil Sr [Isoptin Sr] 180 mg PO HS 03/10/16 03/03/17 Ondansetron Odt [Zofran ODT] 4 mg PO Q8HR PRN 07/01/16 03/03/17 SUMAtriptan SUCCINATE [Imitrex] 50 mg PO BID PRN 07/01/16 03/03/17 Ergocalciferol [Vitamin D2 50,000 unit PO WE 03/03/17 03/03/17 (DRISDOL)] Furosemide [Lasix] 40 mg PO BID 03/03/17 03/03/17 OLANZapine [ZyPREXA] 15 mg PO HS 03/03/17 03/03/17 Potassium Chloride [Klor-Con 10] 10 meq PO TID 03/03/17 03/03/17 Topiramate [Topamax] 100 mg PO BID 03/03/17 03/03/17 Previous Rx's Medication Instructions Recorded Acetaminophen Tab [Tylenol] 650 mg PO Q4HR PRN #0 tab 02/01/17 Doxepin HCl [SINEquan] 50 mg PO HS 30 Days 02/01/17 [place] Carbonate 600 mg PO BID 30 Days 02/01/17 Allergies Allergy/AdvReac Type Severity Reaction Status Date / Time quetiapine fumarate AdvReac Unknown Tremors/Maxx Verified 03/04/17 02:43 [From Seroquel] liam divalproex sodium AdvReac Weight Gain Verified 03/04/17 02:43 [From Depakote] Review of Systems ROS Statement: Those systems with pertinent positive or pertinent negative responses have been documented in the HPI. ROS Other: All systems not noted in ROS Statement are negative. Past Medical History Past Medical History: Asthma, Fibromyalgia, Musculoskeletal Disorder Additional Past Medical History / Comment(s): Anxiety, depression, chronic back pain. degenerative disc disease, migraines, IBS History of Any Multi-Drug Resistant Organisms: None Reported Past Surgical History: Hysterectomy Additional Past Surgical History / Comment(s): PREVIOUS EPIDURAL PAIN INJECTIONS , Dental surgery involving complete tooth removal Past Anesthesia/Blood Transfusion Reactions: No Reported Reaction Past Psychological History: Anxiety, Bipolar, Depression, PTSD Smoking Status: Former smoker Past Alcohol Use History: None Reported Additional Past Alcohol Use History / Comment(s): Pt. denies current alcohol use or a past history of alcohol abuse. BAT 0 Past Drug Use History: Marijuana - Past Family History Mother Family Medical History: No Reported History Father Family Medical History: Cancer, Congestive Heart Failure (CHF), COPD, Diabetes Mellitus, Hypertension Additional Family Medical History / Comment(s): throat , mouth and lung CA. triple bypass. stents., Sister(s) Family Medical History: Cancer, Hyperlipidemia Additional Family Medical History / Comment(s): breast General Exam - General Exam Comments Initial Comments: Sitting in exam room, no acute distress. Limitations: no limitations General appearance: alert, in no apparent distress Head exam: Present: atraumatic, normocephalic, normal inspection Eye exam: Present: normal appearance ENT exam: Present: normal exam Neck exam: Present: normal inspection Respiratory exam: Present: normal lung sounds bilaterally. Absent: respiratory distress Cardiovascular Exam: Present: normal rhythm, tachycardia, normal heart sounds GI/Abdominal exam: Present: soft, distended, tenderness (LLQ), normal bowel sounds. Absent: guarding, rebound, rigid Extremities exam: Present: normal inspection Back exam: Present: normal inspection Neurological exam: Present: alert, oriented X3, CN II-XII intact, normal gait Psychiatric exam: Present: normal affect, normal mood Skin exam: Present: warm, dry, intact, normal color. Absent: rash Course Vital Signs 03/03/17 03/03/17 03/03/17 19:46 21:48 22:00 Temperature 99.2 F Pulse Rate 115 H 73 77 Respiratory 18 16 18 Rate Blood Pressure 123/75 127/67 126/73 O2 Sat by Pulse 96 100 100 Oximetry 03/04/17 03/04/17 00:00 01:00 Temperature 98.1 F Pulse Rate 68 70 Respiratory 18 20 Rate Blood Pressure 125/70 133/76 O2 Sat by Pulse 99 Oximetry Medical Decision Making - Medical Decision Making patient is a 31-year-old female presents emergency room for evaluation of constipation. WBC 26.3. Abdomen/pelvis CT: Mild gaseous prominence of the proximal and transverse colon may represent to 3 of colonic ileus. No significant fecal load. The distal sigmoid and rectum are understands distended with appearance of mild wall thickening which may be due to under distention with possibility of proctitis not excluded. Mild perirectal stranding, edema (per radiology). patient was given a molasses enema. Patient had a large bowel movement states she is feeling better. Due to CT results and elevated WBC patient will be admitted with IV antibiotics. Case discussed with Dr. Murrell. - Lab Data Result diagrams: 03/03/17 22:30 03/03/17 22:30 Lab Results 03/03/17 03/03/17 Range/Units 22:30 22:30 WBC 26.3 H* (3.8-10.6) k/uL RBC 3.89 (3.80-5.40) m/uL Hgb 11.6 (11.4-16.0) gm/dL Hct 36.2 (34.0-46.0) % MCV 93.0 (80.0-100.0) fL MCH 29.9 (25.0-35.0) pg MCHC 32.2 (31.0-37.0) g/dL RDW 14.3 (11.5-15.5) % Plt Count 480 H (150-450) k/uL Neutrophils % 91 % Lymphocytes % 5 % Monocytes % 2 % Eosinophils % 1 % Basophils % 0 % Neutrophils # 23.8 H (1.3-7.7) k/uL Lymphocytes # 1.4 (1.0-4.8) k/uL Monocytes # 0.6 (0-1.0) k/uL Eosinophils # 0.2 (0-0.7) k/uL Basophils # 0.1 (0-0.2) k/uL Sodium 140 (137-145) mmol/L Potassium 3.4 L (3.5-5.1) mmol/L Chloride 106 (98-107) mmol/L Carbon Dioxide 21 L (22-30) mmol/L Anion Gap 13 mmol/L BUN 8 (7-17) mg/dL Creatinine 0.70 (0.52-1.04) mg/dL Est GFR (MDRD) Af Amer >60 (>60 ml/min/1.73 sqM) Est GFR (MDRD) Non-Af >60 (>60 ml/min/1.73 sqM) Glucose 114 H (74-99) mg/dL Calcium 9.1 (8.4-10.2) mg/dL Total Bilirubin 0.4 (0.2-1.3) mg/dL AST 92 H (14-36) U/L ALT 132 H (9-52) U/L Alkaline Phosphatase 164 H (38-126) U/L Total Protein 7.1 (6.3-8.2) g/dL Albumin 3.8 (3.5-5.0) g/dL Amylase 48 (30-110) U/L Lipase 30 (23-300) U/L - Radiology Data Radiology results: report reviewed, image reviewed Disposition Clinical Impression: Abdominal pain, Leukocytosis Disposition: ADMITTED IP TO THIS [facility] Condition: Stable Decision Date: 03/04/17
--- NOTE | 2017-03-03 21:56 | XR ---
History: Reason: Pain Exam: XR ABDOMEN 3 total images, 2 supine views to include the entire abdomen and pelvis and upright view Comparison: 12/19/2016 FINDINGS: Gaseous distention throughout the colon with a few scattered fluid levels may be related to colonic ileus. No radiographic appearance to suggest haustral wall thickening. Some stool is seen in the lower sigmoid and rectum. No significant fecal load present. No gaseous distention of small bowel. No free air. No evidence of abnormal abdominal calcification. IMPRESSION: Gaseous distention throughout the colon with a few scattered fluid levels may be related to colonic ileus. No radiographic appearance to suggest haustral wall thickening. Some stool is seen in the lower sigmoid and rectum. No significant fecal load present. No gaseous distention of small bowel. No free air.
--- NOTE | 2017-03-03 22:12 | P.GSCN ---
History of Present Illness Consult date: 03/03/17 Reason for Consult: Abdominal distention History of present illness: Patient is a 1-year-old white female who presents to the emergency room with a complaint of no bowel movement for 4 days. She states that she has a history of irritable bowel syndrome with constipation but she has not had any bowel movement now for 4 days despite taking mineral oil and lactulose. The patient did have a small stool yesterday with blood in it. The patient has not passed gas for approximately 1-1/2 days. The patient states she has a low-grade fever. The patient complains of discomfort greatest in the left lower quadrant which is pressure-like and intermittently crampy. Past surgical history: 1. Hysterectomy 2. Tubal ligation Past medical history: 1. Irritable bowel disease 2. Degenerative disc disease 3. Fibromyalgia 4. Herniated disc 5. Mental disease 6. Asthma 7. Patient had recent cervical injection on 517 ALLERGIES: 1. Seroquel 2. Depakote Social history: Smoking negative Alcohol negative Marijuana negative 3 pregnancies 2 children Patient does use Percocet his pain medication as needed Review of systems: HEENT: Negative Lungs: Negative Heart: Negative GI: Constipation : Negative Review of Systems - Constitutional Reports as per HPI - Cardiovascular Reports as per HPI - Respiratory Reports as per HPI - Gastrointestinal Gastrointestinal Comment(s): Chronic constipation Reports as per HPI - Genitourinary Genitourinary: Reports as per HPI - Musculoskeletal Musculoskeleta Comment(s): Fibromyalgia Reports as per HPI Past Medical History Past Medical History: Asthma, Fibromyalgia, Musculoskeletal Disorder Additional Past Medical History / Comment(s): Anxiety, depression, chronic back pain. degenerative disc disease, migraines, IBS History of Any Multi-Drug Resistant Organisms: None Reported Past Surgical History: Hysterectomy Additional Past Surgical History / Comment(s): PREVIOUS EPIDURAL PAIN INJECTIONS , Dental surgery involving complete tooth removal Past Anesthesia/Blood Transfusion Reactions: No Reported Reaction Past Psychological History: Anxiety, Bipolar, Depression, PTSD Smoking Status: Former smoker Past Alcohol Use History: None Reported Additional Past Alcohol Use History / Comment(s): Pt. denies current alcohol use or a past history of alcohol abuse. BAT 0 Past Drug Use History: Marijuana - Past Family History Mother Family Medical History: No Reported History Father Family Medical History: Cancer, Congestive Heart Failure (CHF), COPD, Diabetes Mellitus, Hypertension Additional Family Medical History / Comment(s): throat , mouth and lung CA. triple bypass. stents., Sister(s) Family Medical History: Cancer, Hyperlipidemia Additional Family Medical History / Comment(s): breast Medications and Allergies Home Medications Medication Instructions Recorded Confirmed Type Famotidine [Pepcid] 20 mg PO BID 02/07/15 03/03/17 History Albuterol Inhaler [Ventolin Hfa 2 puff INHALATION RT-QID PRN 09/11/15 03/03/17 History Inhaler] Albuterol Nebulized [Ventolin 2.5 mg INHALATION RT-QID PRN 09/11/15 03/03/17 History Nebulized] Montelukast [Singulair] 10 mg PO QAM 09/11/15 03/03/17 History Verapamil Sr [Isoptin Sr] 180 mg PO HS 03/10/16 03/03/17 History Ondansetron Odt [Zofran ODT] 4 mg PO Q8HR PRN 07/01/16 03/03/17 History SUMAtriptan SUCCINATE [Imitrex] 50 mg PO BID PRN 07/01/16 03/03/17 History Topiramate [Topamax] 100 mg PO BID@0800,1400 12/03/16 03/03/17 History OLANZapine [ZyPREXA] 15 mg PO HS 02/16/17 03/03/17 History Allergies Allergy/AdvReac Type Severity Reaction Status Date / Time quetiapine fumarate AdvReac Severe Tremors/Maxx Verified 02/20/17 06:20 [From Seroquel] liam divalproex sodium AdvReac weight gain Verified 02/20/17 06:20 [From Depakote] Surgical - Exam Vital Signs Temp Pulse Resp BP Pulse Ox 99.2 F 115 H 18 123/75 96 03/03/17 19:46 03/03/17 19:46 03/03/17 19:46 03/03/17 19:46 03/03/17 19:46 - General moderate distress, obese - Eyes normal ocular movement - ENT edentulous normal pinna, normal nares, normal mucosa, no hearing loss - Neck no masses, trachea midline, no lymphadectomy - Respiratory normal expansion, normal respiratory effort, clear to percussion, clear to auscultation - Cardiovascular Rhythm: regular Heart Sounds: normal: S1, S2 - Abdomen Abdomen: soft, bowel sounds, distended - Rectum Positive stool on rectal exam Rectum: normal sphincter tone, no tenderness Results - Imaging Abdominal x-ray: report reviewed, image reviewed Assessment and Plan Plan: Impression/plan: 1. Chronic constipation 2. Irritable bowel bowel disease 3. Degenerative disc disease 4. Fibromyalgia 6. Herniated disc 7. Mental illness 8. Asthma Plan: 1. Medical management of medical problems 2. Enemas 3. Patient does not have an acute surgical abdomen at this time
[2017-03-03 22:44] LABS: Basophils # (A) 0.1 k/uL (0-0.2); Basophils % (A) 0 %; CH 29.9; CHCM 32.3; Eosinophils # (A) 0.2 k/uL (0-0.7); Eosinophils % (A) 1 %; HCT 36.2 % (34.0-46.0); HDW 2.65; HGB 11.6 gm/dL (11.4-16.0); Luc # (Auto) 0.26; Luc % (Auto) 1; Lymphocytes # (A) 1.4 k/uL (1.0-4.8); Lymphocytes % (A) 5 %; MCH 29.9 pg (25.0-35.0); MCHC 32.2 g/dL (31.0-37.0); Mean Platelet Volume 6.6; Monocytes # (A) 0.6 k/uL (0-1.0); Monocytes % (A) 2 %; Neutrophils # (A) 23.8 k/uL (1.3-7.7); Neutrophils % (A) 91 %; RBC 3.89 m/uL (3.80-5.40); RDW 14.3 % (11.5-15.5)
[2017-03-03 22:49] LABS: WBC 26.3 k/uL (3.8-10.6)
[2017-03-03 22:55] LABS: ALT 132 U/L (9-52); AST 92 U/L (14-36); Alkaline Phosphatase 164 U/L (38-126); Amylase 48 U/L (30-110); Anion Gap 13 mmol/L; Blood Urea Nitrogen 8 mg/dL (7-17); Calcium 9.1 mg/dL (8.4-10.2); Carbon Dioxide 21 mmol/L (22-30); Chloride 106 mmol/L (98-107); Glucose 114 mg/dL (74-99); Non-African American GFR(MDRD) >60 (>60 ml/min/1.73 sqM); Potassium 3.4 mmol/L (3.5-5.1); Sodium 140 mmol/L (137-145); Total Bilirubin 0.4 mg/dL (0.2-1.3); Total Protein 7.1 g/dL (6.3-8.2)
[2017-03-03] MEDS ORDERED: RX INFO: IV CONTRAST WAS GIVEN 1 EACH MISC MISCELLANE PRN (23:33)
--- NOTE | 2017-03-04 00:53 | CT ---
History: Reason: Pain Exam: CT ABDOMEN + PELVIS With Contrast axial images from the lung bases through the ischial tuberosities following administration of 100 cc of Omnipaque 300 contrast intravenously with multiplanar reformatted and delayed images Technique more: CTDI is 11.60 mGy and DLP is 944.50 mGy-cm. Technique more: This CT exam was performed using one or more of the following dose reduction techniques: automated exposure control, adjustment of the mA and/or kV according to patient size, and/or use of iterative reconstruction technique. Comparison: 12/03/2016 FINDINGS: Basilar atelectasis. Enlarged, fatty liver again noted. The adrenal glands, kidneys, spleen, pancreas, gallbladder and abdominal aorta appear within limits. No bowel dilation or free air. Mild gaseous prominence of the proximal and transverse colon may represent degree of colonic ileus. No significant fecal load. The distal sigmoid and rectum are underdistended with appearance of mild wall thickening which may be due to the underdistention with possibility of proctitis not excluded. Mild perirectal stranding, edema. No free fluid. Normal caliber appendix without secondary signs. Status post hysterectomy. The bladder and ovaries appear within limits. IMPRESSION: Mild gaseous prominence of the proximal and transverse colon may represent degree of colonic ileus. No significant fecal load. The distal sigmoid and rectum are underdistended with appearance of mild wall thickening which may be due to the underdistention with possibility of proctitis not excluded. Mild perirectal stranding, edema. Basilar atelectasis. Enlarged, fatty liver again noted. Status post hysterectomy.
[2017-03-04] MEDS ORDERED: LEVOFLOXACIN 500MG-D5W PMX 500 MG in DEXTROSE/WATER 1 100ML.BAG IVPB STA (01:16)
[2017-03-04] MEDS ORDERED: metroNIDAZOLE-NS PMX 500 MG in SALINE 1 100ML.BAG IVPB STA (01:17)
[2017-03-04] MEDS ORDERED: NALOXONE 0.4 MG/ML 1 ML VIAL IV PRN (01:18)
[2017-03-04] MEDS ORDERED: ONDANSETRON 4 MG/2 ML VIAL IVP PRN (01:18)
[2017-03-04] MEDS ORDERED: ACETAMINOPHEN TAB 325 MG TAB PO PRN (01:18)
[2017-03-04] MEDS: SODIUM CHLORIDE 0.9% 1,000 ML IV SCH ×3 (01:54→22:00)
[2017-03-04 02:39] VITALS: BMI 33.0
[2017-03-04] MEDS: MORPHINE SULFATE 4 MG/ML SYRINGE IV PRN ×4 (02:45→17:59)
[2017-03-04] MEDS: VERAPAMIL SR 180 MG TABLET.ER PO SCH ×2 (04:38→22:00)
[2017-03-04] MEDS: FUROSEMIDE 40 MG TAB PO SCH ×3 (04:38→22:00)
[2017-03-04 07:12] LABS: Basophils # (A) 0.1 k/uL (0-0.2); Basophils % (A) 0 %; CH 29.8; Eosinophils # (A) 0.3 k/uL (0-0.7); Eosinophils % (A) 1 %; HCT 34.1 % (34.0-46.0); HDW 2.65; Luc # (Auto) 0.25; Luc % (Auto) 1; Lymphocytes # (A) 1.7 k/uL (1.0-4.8); Lymphocytes % (A) 9 %; MCH 30.4 pg (25.0-35.0); MCHC 32.4 g/dL (31.0-37.0); MCV 93.8 fL (80.0-100.0); Mean Platelet Volume 6.8; Monocytes # (A) 0.8 k/uL (0-1.0); Monocytes % (A) 4 %; Neutrophils # (A) 16.3 k/uL (1.3-7.7); Neutrophils % (A) 85 %; RBC 3.63 m/uL (3.80-5.40); RDW 14.3 % (11.5-15.5); WBC 19.3 k/uL (3.8-10.6); WBC (Perox) 21.71
[2017-03-04] MEDS ORDERED: HEPARIN SODIUM,PORCINE 5,000 UNIT/ML 1 ML VIAL SQ SCH (09:00)
[2017-03-04] MEDS ORDERED: SUMAtriptan SUCCINATE 50 MG TAB PO PRN (09:05)
[2017-03-04] MEDS ORDERED: ALBUTEROL NEBULIZED 2.5 MG/3 ML INHALATION PRN (09:05)
[2017-03-04] MEDS: LITHIUM CARBONATE 300 MG CAP PO SCH ×2 (10:30→21:59)
[2017-03-04] MEDS: FAMOTIDINE 20 MG TAB PO SCH ×2 (10:30→21:59)
[2017-03-04] MEDS: TOPIRAMATE 100 MG TAB PO SCH ×2 (10:31→22:00)
[2017-03-04] MEDS: MONTELUKAST 10 MG TAB PO SCH (10:31)
--- NOTE | 2017-03-04 10:49 | P.PN ---
Subjective Patient is a 31-year-old white female who presented to the emergency room with a complaint of constipation. She was noted with stool in the rectal vault and was treated with enemas with good results. The patient today continues to have some abdominal discomfort blood cell count was 26.3 in the emergency room is now 19.3. Objective - Vital Signs Vital signs: Vital Signs Temp 98.5 F 03/04/17 07:00 Pulse 102 H 03/04/17 07:00 Resp 18 03/04/17 07:00 BP 105/57 03/04/17 07:00 Pulse Ox 91 L 03/04/17 07:00 Intake & Output 03/03/17 03/04/17 03/04/17 18:59 06:59 18:59 Weight 92.986 kg Other: Voiding Method Toilet # Voids 1 - Constitutional General appearance: Present: mild distress, obese - Respiratory Details: Decreased breath sounds at the bases - Cardiovascular Rhythm: regular Heart sounds: normal: S1, S2 - Gastrointestinal Gastrointestinal Comment(s): Diffuse mild tenderness General gastrointestinal: Present: decreased bowel sounds, soft - Psychiatric Psychiatric: Present: A&O x's 3, appropriate affect, intact judgment & insight - Labs CBC & Chem 7: 03/04/17 06:39 03/03/17 22:30 Labs: Abnormal Lab Results - Last 24 Hours (Table) 03/03/17 03/03/17 03/04/17 Range/Units 22:30 22:30 06:39 WBC 26.3 H* 19.3 H (3.8-10.6) k/uL RBC 3.63 L (3.80-5.40) m/uL Hgb 11.0 L (11.4-16.0) gm/dL Plt Count 480 H 453 H (150-450) k/uL Neutrophils # 23.8 H 16.3 H (1.3-7.7) k/uL Potassium 3.4 L (3.5-5.1) mmol/L Carbon Dioxide 21 L (22-30) mmol/L Glucose 114 H (74-99) mg/dL AST 92 H (14-36) U/L ALT 132 H (9-52) U/L Alkaline Phosphatase 164 H (38-126) U/L Assessment and Plan Plan: Impression/plan: 1. Chronic constipation 2. Irritable bowel bowel disease 3. Degenerative disc disease 4. Fibromyalgia 6. Herniated disc 7. Mental illness 8. Asthma 9. Leukocytosis Plan: 1. Medical management of medical problem 2. Repeat CBC in a.m.
[2017-03-04] MEDS ORDERED: POTASSIUM CHLORIDE ER 20 MEQ TAB.ER PO STA (10:54)
[2017-03-04] MEDS ORDERED: RX INFO: IV CONTRAST WAS GIVEN 1 EACH MISC MISCELLANE PRN (12:37)
[2017-03-04] MEDS: PIPERACILLIN-TAZOBACTAM 3.375 GM in DEXTROSE/WATER 1 50ML.BAG IVPB SCH (14:33)
--- NOTE | 2017-03-04 14:48 | CONS ---
DATE OF CONSULTATION: 03/04/2017 REASON FOR CONSULTATION: Medical management requested Dr. Neha Gregory. CONSULTATION: This is a pleasant 31-year-old patient with a rather extensive medical history. Patient's chronic stable medical conditions include fibromyalgia, asthma, chronic insomnia, herniated disc in the lower back, and also depression. Patient normally has a bowel movement every other day. Patient has not had a bowel movement for 4 days, and the day prior to coming here patient had a small bowel movement with a significant amount of blood, increasing amount of lower abdominal pain. Patient came in and otherwise was found to have a white count today of 6.3, felt a bit warm. Enema was given by Dr. Neha Gregory. Patient did have a large bowel movement. Patient is admitted for the same. Patient denies nausea, vomiting. REVIEW OF SYSTEMS: CONSTITUTIONAL: Tired. HEENT: None. RESPIRATORY: None. CARDIOVASCULAR: None. GASTROINTESTINAL: As above. GENITOURINARY: None. MUSCULOSKELETAL: Pains in joints. DERMATOLOGICAL: None. HEMATOLOGICAL: None. LYMPHATICS: None. PSYCHIATRY: Some anxiety. NEUROLOGICAL: None. PAST HISTORY: 1. Asthma. 2. Herniated disc. 3. Fibromyalgia. 4. Irritable bowel syndrome. 5. Insomnia. 6. Migraines. PAST SURGICAL HISTORY: 1. Hysterectomy. 2. Epidural pain injections. 3. Dental surgery. SOCIAL HISTORY: Lives with her fianc?. Does not smoke or drink alcohol. FAMILY HISTORY: Throat, mouth and lung cancer. Triple bypass. HOME MEDICATIONS: 1. Isoptin SR 180 mg at bedtime. 2. Topamax 100 mg p.o. b.i.d. 3. Imitrex 50 mg p.o. b.i.d. p.r.n. 4. Klor-Con 10 mEq p.o. t.i.d. 5. Zofran 4 mg p.o. q.8 p.r.n. 6. Zyprexa 50 mg p.o. at bedtime. 7. Singulair 10 mg p.o. daily. 8. Gap 600 mg p.o. b.i.d. 9. Lasix 40 mg p.o. b.i.d. 10. Pepcid 20 mg p.o. b.i.d. 11. Vitamin D2, 50,000 units on Monday. 12. Doxepin 50 mg p.o. at bedtime. 13. Ventolin 2.5 q.i.d. 14. Ventolin HFA 2 puffs q.i.d. p.r.n. 15. Tylenol 650 mg q.4 p.r.n. ALLERGIES: SEROQUEL and DEPAKOTE. On examination, temperature 99.2, pulse 115, respiration 18, blood pressure 126/75, pulse ox 96% on room air upon presentation. GENERAL APPEARANCE: Well built; BMI of 33.1. Sitting up. Not in distress. EYES: Pupils equal. Conjunctivae normal. HEENT: External appearance of nose and ears normal. Oral cavity normal. NECK: JVD not raised. Mass not palpable. RESPIRATORY: Effort normal. LUNGS: Fair air entry. CARDIOVASCULAR: First and second sounds normal. No edema. ABDOMEN: Lower abdominal left lower quadrant tenderness. No guarding or rigidity. Liver and spleen not palpable. LYMPHATIC: No lymph node palpable in neck or axillae. PSYCHIATRY: Alert and oriented x3. Mood and affect normal. NEUROLOGICAL: Pupils equal. Cranial nerves grossly intact. Power and sensation grossly intact. INVESTIGATIONS: White count 26.3, hemoglobin 11.6. Potassium 3.4. BUN and creatinine normal. Amylase and lipase were normal. CT scan of the abdomen and pelvis may show some mild wall thickening in the distal sigmoid and rectum with mild perirectal stranding. ASSESSMENT: 1. This is a patient who presents with lower abdominal pain, some sigmoid colon perirectal stranding and thickening. This may well be diverticulitis or localized colitis. Given that patient has a white count and had some bleeding per rectum, that itself could be from hemorrhoids. 2. Chronic fibromyalgia. 3. Chronic insomnia, idiopathic. 4. Depression not otherwise specified. 5. Obesity; body mass index of 33.1. 6. Major depression with psychotic features, currently in remission. 7. Post-traumatic stress disorder. PLAN: At this point, we will start the patient on IV Zosyn for 24 hours, and that can be switched over to oral antibiotics tomorrow. Will repeat lab work. Will also repeat a CT scan of the abdomen and pelvis with contrast. Care was discussed with the patient. Questions were answered. Repeat labs. Patient is getting stockings for DVT prophylaxis.
--- NOTE | 2017-03-04 15:55 | P.CONS ---
History of Present Illness - Reason for Consult Consult date: 03/04/17 - Chief Complaint Abdominal pain - History of Present Illness 31-year-old female who has a history of multiple medical illnesses include irritable bowel disease and mental illness, as well as fibromyalgia. Presents to Hospital because of significant constipation. Negative bowel movement for multiple days. And despite mineral AmLactin lotion became very uncomfortable. She apparently passed a very small amount of stool that had some blood on it. Because of this she presented to the emergency center. She was having significant abdominal pain requiring morphine therapy at this time. With concerns to infection the ID consult was requested. The patient does have a leukocytosis. She does time is denying fever, chills or rigors. She is also denying nausea or emesis. Is being given a soft diet without difficulty. Review of Systems Patient has a history of fibromyalgia and mental illness. She has multiple complaints but generalized body aches. Does relate that she's had some increased abdominal pain especially to the left lower quadrant. HEENT:Denies headache or acute visual change. Denies sinus or mouth discomforts. Denies neck stiffness or pain. Denies significant oral cavity pain. Denies difficulty on swallowing. Lungs: Denies significant shortness of breath, cough, sputum production, or hemoptysis. Cardiovascular: Denies significant shortness of breath, chest pain, chest wall pain, orthopnea, dyspnea on exertion, syncope Gastrointestinal:Denies nausea, vomiting, diarrhea, has had significant constipation. Denies hematemesis melena or hematochezia. Did have a scant amount of blood noticed on the stool that passed yesterday. Musculoskeletal: Chronic musculoskeletal pains Skin: Denies new rash or lesions. No new ulcers or wounds are related.. Neuro: Denies headache or visual change. Denies any new onset weakness or difficulty with ambulation. Denies falls or seizures. Psychiatric: Chronic anxiety and depression Endocrine: Chronic fatigue Past Medical History Past Medical History: Asthma, Fibromyalgia, Musculoskeletal Disorder Additional Past Medical History / Comment(s): Anxiety, depression, chronic back pain. degenerative disc disease, migraines, IBS History of Any Multi-Drug Resistant Organisms: None Reported Past Surgical History: Hysterectomy Additional Past Surgical History / Comment(s): PREVIOUS EPIDURAL PAIN INJECTIONS , Dental surgery involving complete tooth removal Past Anesthesia/Blood Transfusion Reactions: No Reported Reaction Past Psychological History: Anxiety, Bipolar, Depression, PTSD Additional Psychological History / Comment(s): History of mental illness. . His 2 children. No animals in the home. No travel. experience. No current tobacco or alcohol use Smoking Status: Former smoker Past Alcohol Use History: None Reported Additional Past Alcohol Use History / Comment(s): Pt. denies current alcohol use or a past history of alcohol abuse. BAT 0 Past Drug Use History: Marijuana - Past Family History Mother Family Medical History: No Reported History Father Family Medical History: Cancer, Congestive Heart Failure (CHF), COPD, Diabetes Mellitus, Hypertension Additional Family Medical History / Comment(s): throat , mouth and lung CA. triple bypass. stents., Sister(s) Family Medical History: Cancer, Hyperlipidemia Additional Family Medical History / Comment(s): breast Medications and Allergies Home Medications and Allergies Comment(s): Current Medications Acetaminophen (Tylenol Tab) 650 mg PO Q6HR PRN PRN Reason: Mild Pain or Fever > 100.5 Albuterol Sulfate (Ventolin Nebulized) 2.5 mg INHALATION RT-QID PRN PRN Reason: Shortness Of Breath Doxepin HCl (Sinequan) 50 mg PO HS [facility] Ergocalciferol (Vitamin D2) 50,000 unit PO We@1200 [facility] Famotidine (Pepcid) 20 mg PO BID [facility] Last Admin: 03/04/17 10:30 Dose: 20 mg Furosemide (Lasix) 40 mg PO BID [facility] Last Admin: 03/04/17 10:29 Dose: 40 mg Sodium Chloride (Saline 0.9%) 1,000 mls @ 100 mls/hr IV .Q10H [facility] Last Admin: 03/04/17 14:34 Dose: Not Given Piperacillin/Tazobactam/ (Dextrose 3.375 gm/ IV Solution) 50 mls @ 12.5 mls/hr IVPB Q8HR [facility] Last Admin: 03/04/17 14:33 Dose: 12.5 mls/hr Iohexol (Omnipaque 350 Mg/Ml (For Oral Use)) 25 ml PO Q60M PRN PRN Reason: CT Scan Stop: 03/05/17 12:37 Ketorolac Tromethamine (Toradol) 30 mg IVP Q6HR PRN PRN Reason: Moderate Pain Stop: 03/09/17 01:19 [place] Carbonate ([place] Carbonate) 600 mg PO BID [facility] Last Admin: 03/04/17 10:30 Dose: 600 mg Miscellaneous Information (Rx Info: Iv Contrast Was Given) 1 each MISCELLANE DAILY PRN PRN Reason: Per Protocol Stop: 03/05/17 23:33 Miscellaneous Information (Rx Info: Iv Contrast Was Given) 1 each MISCELLANE DAILY PRN PRN Reason: Per Protocol Stop: 03/06/17 12:37 Montelukast Sodium (Singulair) 10 mg PO QAM [facility] Last Admin: 03/04/17 10:31 Dose: 10 mg Morphine Sulfate (Morphine Sulfate (Inj)) 4 mg IV Q4HR PRN PRN Reason: Severe Pain Last Admin: 03/04/17 12:40 Dose: 4 mg Naloxone HCl (Narcan) 0.2 mg IV Q2M PRN PRN Reason: Opioid Reversal Olanzapine (Zyprexa) 15 mg PO [facility] Ondansetron HCl (Zofran) 4 mg IVP Q8HR PRN PRN Reason: Nausea And Vomiting Last Admin: 03/04/17 08:49 Dose: 4 mg Potassium Chloride (K-Dur 10) 10 meq PO TID [facility] Sumatriptan Succinate (Imitrex) 50 mg PO BID PRN PRN Reason: Migraine Headache Last Admin: 03/04/17 15:15 Dose: 50 mg Topiramate (Topamax) 100 mg PO BID [facility] Last Admin: 03/04/17 10:31 Dose: 100 mg Verapamil HCl (Isoptin Sr) 180 mg PO [facility] Last Admin: 03/04/17 04:38 Dose: 180 mg Home Medications Medication Instructions Recorded Confirmed Type Famotidine [Pepcid] 20 mg PO BID 02/07/15 03/03/17 History Albuterol Inhaler [Ventolin Hfa 2 puff INHALATION RT-QID PRN 09/11/15 03/03/17 History Inhaler] Albuterol Nebulized [Ventolin 2.5 mg INHALATION RT-QID PRN 09/11/15 03/03/17 History Nebulized] Montelukast [Singulair] 10 mg PO QAM 09/11/15 03/03/17 History Verapamil Sr [Isoptin Sr] 180 mg PO 03/10/16 03/03/17 History Ondansetron Odt [Zofran ODT] 4 mg PO Q8HR PRN 07/01/16 03/03/17 History SUMAtriptan SUCCINATE [Imitrex] 50 mg PO BID PRN 07/01/16 03/03/17 History Ergocalciferol [Vitamin D2 50,000 unit PO WE 03/03/17 03/03/17 History (DRISDOL)] Furosemide [Lasix] 40 mg PO BID 03/03/17 03/03/17 History OLANZapine [ZyPREXA] 15 mg PO HS 03/03/17 03/03/17 History Potassium Chloride [Klor-Con 10] 10 meq PO TID 03/03/17 03/03/17 History Topiramate [Topamax] 100 mg PO BID 03/03/17 03/03/17 History Allergies Allergy/AdvReac Type Severity Reaction Status Date / Time quetiapine fumarate AdvReac Unknown Tremors/Maxx Verified 03/04/17 02:43 [From Seroquel] liam divalproex sodium AdvReac Weight Gain Verified 03/04/17 02:43 [From Depakote] Physical Exam Vitals: Vital Signs Temp Pulse Pulse Resp BP BP Pulse Ox 03/04/17 08:00 102 H 18 03/04/17 07:00 98.5 F 102 H 18 105/57 91 L 03/04/17 02:33 98.2 F 112 H 16 123/72 98 03/04/17 01:00 98.1 F 70 20 133/76 99 03/04/17 00:00 68 18 125/70 03/03/17 22:00 77 18 126/73 100 03/03/17 21:48 73 16 127/67 100 03/03/17 19:46 99.2 F 115 H 18 123/75 96 Intake and Output 03/04/17 03/04/17 03/04/17 06:59 14:59 22:59 Intake Total 850 Balance 850 Intake: Intake, IV Titration 850 Amount Piperacillin-Tazobactam 3 50 .375 gm In Dextrose/Water 1 50ml.bag @ 12.5 mls/hr IVPB Q8HR [facility] Rx#: [id number] Sodium Chloride 0.9% 1, 800 000 ml @ 100 mls/hr IV . Q10H [facility] Rx#:[id number] Other: Voiding Method Toilet Toilet # Voids 1 2 Weight 92.986 kg 31-year-old woman who may have a mild developmental delay. His visual difficulties that are not new and wears very thick glasses. HEENT: Anicteric conjunctiva are pink and moist nasal mucosa grossly intact without significant lesions, there is no thrush. No acute gross new visual changes are noted. Neck: The neck is supple without significant lymphadenopathy or thyromegaly. Lungs: Good bilateral air entry without significant crackles or wheezing. There is no significant bronchial sounds. There is no egophony or dullness. Heart: Regular rate and rhythm with an audible S1-S2, no S3 no S4. There is no significant murmur click or rub, PMI was nondisplaced. Abdomen: Obese but soft. No palpable masses. No organomegaly. Complains of significant pain upon palpation of the left lower quadrant. No masses noted. No guarding or rebound. She also has significant tenderness and complains of tenderness similar to the abdomen when her arms and legs are touched. She relates that she has severe fibromyalgia. Extremities: The upper extremities have excellent pulses they are symmetric, no significant petechiae or telangiectasia. No splinter hemorrhages were noted. The lower extremities are free from significant edema. The peripheral pulses were 2+ and symmetric. Neuro: Awake alert oriented to person place and time. There are no acute new gross focal sensory motor deficits. Patient has a history of bipolar disorder appears to be currently calm Results CBC & Chem 7: 03/04/17 06:39 03/03/17 22:30 Labs: Abnormal Lab Results - Last 24 Hours (Table) 03/03/17 03/03/17 03/04/17 Range/Units 22:30 22:30 06:39 WBC 26.3 H* 19.3 H (3.8-10.6) k/uL RBC 3.63 L (3.80-5.40) m/uL Hgb 11.0 L (11.4-16.0) gm/dL Plt Count 480 H 453 H (150-450) k/uL Neutrophils # 23.8 H 16.3 H (1.3-7.7) k/uL Potassium 3.4 L (3.5-5.1) mmol/L Carbon Dioxide 21 L (22-30) mmol/L Glucose 114 H (74-99) mg/dL AST 92 H (14-36) U/L ALT 132 H (9-52) U/L Alkaline Phosphatase 164 H (38-126) U/L Laboratory Results WBC 19.3 k/uL (3.8-10.6) H 03/04/17 06:39 RBC 3.63 m/uL (3.80-5.40) L 03/04/17 06:39 Hgb 11.0 gm/dL (11.4-16.0) L 03/04/17 06:39 Hct 34.1 % (34.0-46.0) 03/04/17 06:39 MCV 93.8 fL (80.0-100.0) 03/04/17 06:39 MCH 30.4 pg (25.0-35.0) 03/04/17 06:39 MCHC 32.4 g/dL (31.0-37.0) 03/04/17 06:39 RDW 14.3 % (11.5-15.5) 03/04/17 06:39 Plt Count 453 k/uL (150-450) H 03/04/17 06:39 Neutrophils % 85 % 03/04/17 06:39 Lymphocytes % 9 % 03/04/17 06:39 Monocytes % 4 % 03/04/17 06:39 Eosinophils % 1 % 03/04/17 06:39 Basophils % 0 % 03/04/17 06:39 Neutrophils # 16.3 k/uL (1.3-7.7) H 03/04/17 06:39 Lymphocytes # 1.7 k/uL (1.0-4.8) 03/04/17 06:39 Monocytes # 0.8 k/uL (0-1.0) 03/04/17 06:39 Eosinophils # 0.3 k/uL (0-0.7) 03/04/17 06:39 Basophils # 0.1 k/uL (0-0.2) 03/04/17 06:39 APTT 23.5 sec (22.0-30.0) 03/04/17 01:51 Sodium 140 mmol/L (137-145) 03/03/17 22:30 Potassium 3.4 mmol/L (3.5-5.1) L 03/03/17 22:30 Chloride 106 mmol/L (98-107) 03/03/17 22:30 Carbon Dioxide 21 mmol/L (22-30) L 03/03/17 22:30 Anion Gap 13 mmol/L 03/03/17 22:30 BUN 8 mg/dL (7-17) 03/03/17 22:30 Creatinine 0.70 mg/dL (0.52-1.04) 03/03/17 22:30 Est GFR (MDRD) Af Amer >60 (>60 ml/min/1.73 sqM) 03/03/17 22:30 Est GFR (MDRD) Non-Af >60 (>60 ml/min/1.73 sqM) 03/03/17 22:30 Glucose 114 mg/dL (74-99) H 03/03/17 22:30 Calcium 9.1 mg/dL (8.4-10.2) 03/03/17 22:30 Total Bilirubin 0.4 mg/dL (0.2-1.3) 03/03/17 22:30 AST 92 U/L (14-36) H 03/03/17 22:30 ALT 132 U/L (9-52) H 03/03/17 22:30 Alkaline Phosphatase 164 U/L (38-126) H 03/03/17 22:30 Total Protein 7.1 g/dL (6.3-8.2) 03/03/17 22:30 Albumin 3.8 g/dL (3.5-5.0) 03/03/17 22:30 Amylase 48 U/L (30-110) 03/03/17 22:30 Lipase 30 U/L (23-300) 03/03/17 22:30 Assessment and Plan (1) Leukocytosis Narrative/Plan: 31-year-old woman presents the emergency center with a several day history of constipation. She had increasing amounts of abdominal pain. Because of this she presented emergency center after she passed only a small amount of stool and had some blood on the outside of the stool. She was found evidence of a significant leukocytosis and has been admitted. Relates a history of irritable bowel disease but no history of inflammatory bowel disease. Computed tomography scan did show potential some proctitis was noted. The patient did not relate to inserting any objects into her rectum. She does complain of a chronic constipation issue. We this is ongoing from her many medications. MiraLAX will be given. And she is being seen by surgery. Diet has been advanced to soft. There is evidence of any perforation at this time. The white cell count will be followed. Expected to rapidly normalized. However there could be some mild localized colitis occurring. In the course of metronidazole and levofloxacin for home therapy will likely be adequate. Status: Acute (2) Abdominal pain Status: Acute (3) Constipation Status: Acute (4) Proctitis Status: Acute
[2017-03-04 16:00] LABS: Blood Urea Nitrogen 10 mg/dL (7-17); Non-African American GFR(MDRD) >60 (>60 ml/min/1.73 sqM)
[2017-03-04] MEDS: KETOROLAC 30 MG/ML 1 ML VIAL IVP PRN (17:02)
[2017-03-04] MEDS: OLANZapine 5 MG TAB PO SCH (21:58)
[2017-03-04] MEDS: DOXEPIN 25 MG CAP PO SCH (21:59)
[2017-03-04] MEDS: IOHEXOL 350 MG/ML 25 ML BOTTLE (ORAL USE) PO PRN ×2 (22:04→22:56)
[2017-03-05] MEDS: MORPHINE SULFATE 4 MG/ML SYRINGE IV PRN (00:17)
[2017-03-05] MEDS: PIPERACILLIN-TAZOBACTAM 3.375 GM in DEXTROSE/WATER 1 50ML.BAG IVPB SCH ×4 (00:17→23:34)
[2017-03-05] MEDS: SODIUM CHLORIDE 0.9% 1,000 ML IV SCH ×3 (06:51→23:47)
[2017-03-05 07:34] LABS: Anion Gap 8 mmol/L; Blood Urea Nitrogen 11 mg/dL (7-17); Calcium 8.9 mg/dL (8.4-10.2); Carbon Dioxide 22 mmol/L (22-30); Chloride 110 mmol/L (98-107); Glucose 120 mg/dL (74-99); Non-African American GFR(MDRD) >60 (>60 ml/min/1.73 sqM); Sodium 140 mmol/L (137-145)
[2017-03-05 07:58] LABS: Basophils # (A) 0.1 k/uL (0-0.2); Basophils % (A) 1 %; CH 29.6; CHCM 31.4; Eosinophils # (A) 0.5 k/uL (0-0.7); Eosinophils % (A) 4 %; HCT 34.3 % (34.0-46.0); HDW 2.65; HGB 10.8 gm/dL (11.4-16.0); Luc # (Auto) 0.15; Luc % (Auto) 1; Lymphocytes # (A) 1.4 k/uL (1.0-4.8); Lymphocytes % (A) 11 %; MCH 29.9 pg (25.0-35.0); MCHC 31.5 g/dL (31.0-37.0); Monocytes # (A) 0.8 k/uL (0-1.0); Monocytes % (A) 6 %; Neutrophils # (A) 9.4 k/uL (1.3-7.7); Neutrophils % (A) 77 %; RBC 3.61 m/uL (3.80-5.40); RDW 14.4 % (11.5-15.5); WBC 12.2 k/uL (3.8-10.6); WBC (Perox) 12.94
[2017-03-05] MEDS: FUROSEMIDE 40 MG TAB PO SCH ×2 (07:59→20:45)
[2017-03-05] MEDS: FAMOTIDINE 20 MG TAB PO SCH ×2 (07:59→21:31)
[2017-03-05] MEDS: TOPIRAMATE 100 MG TAB PO SCH ×2 (08:00→20:44)
[2017-03-05] MEDS: LITHIUM CARBONATE 300 MG CAP PO SCH ×2 (08:00→20:44)
[2017-03-05] MEDS: POTASSIUM CHLORIDE ER 10 MEQ TAB.ER.PRT PO SCH ×3 (08:01→21:31)
[2017-03-05] MEDS: MONTELUKAST 10 MG TAB PO SCH (08:01)
--- NOTE | 2017-03-05 08:49 | P.PN ---
Subjective Patient is a 31-year-old white female who presented to the emergency room with a complaint of constipation. She was noted with stool in the rectal vault and was treated with enemas with good results. The patient today continues to have some abdominal discomfort blood cell count was 26.3 in the emergency room is now 12.2. Patient states she continues to feel bloated Objective - Vital Signs Vital signs: Vital Signs Temp 97.6 F 03/05/17 07:00 Pulse 80 03/05/17 07:00 Resp 15 03/05/17 07:00 BP 110/66 03/05/17 07:00 Pulse Ox 93 L 03/04/17 23:00 Intake & Output 03/04/17 03/05/17 03/05/17 18:59 06:59 18:59 Intake Total 1000 590 480 Balance 1000 590 480 Intake: Intake, IV Titration 850 Amount Piperacillin-Tazobactam 3 50 .375 gm In Dextrose/Water 1 50ml.bag @ 12.5 mls/hr IVPB Q8HR [facility] Rx#: [id number] Sodium Chloride 0.9% 1, 800 000 ml @ 100 mls/hr IV . Q10H [facility] Rx#:[id number] Oral 150 590 480 Other: Voiding Method Toilet Toilet Toilet # Voids 2 1 - Constitutional General appearance: Present: obese - Respiratory Details: Decreased breath sounds at bases bilaterally - Cardiovascular Rhythm: regular Heart sounds: normal: S1, S2 - Gastrointestinal Gastrointestinal Comment(s): Mild distended Positive bowel sounds Soft no guarding or rebound - Psychiatric Psychiatric: Present: A&O x's 3, appropriate affect, intact judgment & insight - Labs CBC & Chem 7: 03/05/17 06:50 03/05/17 06:50 Labs: Abnormal Lab Results - Last 24 Hours (Table) 03/05/17 03/05/17 Range/Units 06:50 06:50 WBC 12.2 H (3.8-10.6) k/uL RBC 3.61 L (3.80-5.40) m/uL Hgb 10.8 L (11.4-16.0) gm/dL Plt Count 455 H (150-450) k/uL Neutrophils # 9.4 H (1.3-7.7) k/uL Chloride 110 H (98-107) mmol/L Glucose 120 H (74-99) mg/dL Assessment and Plan Plan: Impression/plan: 1. Chronic constipation 2. Irritable bowel bowel disease 3. Degenerative disc disease 4. Fibromyalgia 6. Herniated disc 7. Mental illness 8. Asthma 9. Resolving Leukocytosis 10. Appreciate ID consult Plan: 1. Will start clear liquids 2. Dulcolax suppository line 3. Probable DC home tomorrow
--- NOTE | 2017-03-05 11:28 | CT ---
EXAMINATION TYPE: CT abdomen pelvis w con DATE OF EXAM: 03/05/2017 12:04 AM COMPARISON: NONE INDICATION: Lower abdomen pain, previous abnormal CT abdomen pelvis DLP: 947.50 mGycm, Automated exposure control for dose reduction was used. CONTRAST: 100 mL of Omnipaque 300. Study performed with Oral Contrast TECHNIQUE: Axial images were obtained from above the diaphragm to the pubic rami in the axial plane a t 5 mm thick sections. Reconstructed images are reviewed on the computer in the coronal plane. FINDINGS: Limited CT sections are obtained the lung bases. Bibasilar infiltrates are present. Correlate for at electasis or pneumonia. CT ABDOMEN: Liver: There is moderate fatty infiltration to the enlarged liver. Spleen: Normal Pancreas: Normal Adrenal glands: The adrenal glands are normal. Gallbladder: Normal Kidneys: No masses are evident. No hydronephrosis is present. No cysts are present. Delayed images were obtained through the kidneys, which remain unremarkable. Aorta: Normal Inferior vena cava: Normal. CT PELVIS: Oral contrast extends to the distal small bowel loops. No contrast is within the colon. Diverticular changes are within the sigmoid colon. There appears to be some perirectal fat inflammato ry change. Correlate for colitis. Transverse colon appears unremarkable on the current exam. There ar e loops of bowel which are incompletely distended or lack oral contrast limiting their evaluation. Appendix: Normal as visualized. Urinary bladder: Normal. Genitourinary structures: Uterus is not identified. Adnexal regions are clear. No free fluid is withi n the pelvis. Osseous structures: No suspicious lytic or sclerotic lesions. IMPRESSIONS: 1. Perirectal fat stranding with some mild wall thickening of the rectum. Correlate for inflammatory change and/or colitis. 2. Remaining portions of the colon appear normal. 3. No oral contrast extends to the colon at this time. No evidence of obstruction is evident however. 4. Enlarged fatty liver.
[2017-03-05] MEDS: KETOROLAC 30 MG/ML 1 ML VIAL IVP PRN ×2 (12:37→17:47)
--- NOTE | 2017-03-05 16:07 | PN ---
DATE OF SERVICE: 03/05/2017 PRESENTING COMPLAINT: Lower abdominal pain. INTERVAL HISTORY: This is a patient admitted with what appears to be possible localized colitis/proctitis. Patient did tolerate some diet today. Abdominal pain is better. No further blood in the stool. Sitting up playing Smartphone. Appears comfortable. Review of systems done for constitutional, cardiovascular, GI, pulmonary; relevant findings as above. Current medications are reviewed that include IV Zosyn. On examination, temperature 97.6, pulse 80, respirations 16, blood pressure 110/66, pulse ox 99% on room air. GENERAL APPEARANCE: Sitting up, comfortable. Playing with text. EYES: Pupils equal. Conjunctivae normal. NECK: JVD not raised. Mass not palpable. RESPIRATORY: Effort normal. LUNGS: Fair air entry. ABDOMEN: Left lower abdominal tenderness decreased, no guarding. Liver and spleen not palpable. PSYCHIATRY: Alert and oriented x3. Mood and affect normal. INVESTIGATIONS: White count 12.2. ASSESSMENT: 1. Acute distal colitis/proctitis with clinical improvement. No further blood. White count is coming down. Patient on antibiotics. 2. Chronic fibromyalgia. 3. Chronic insomnia, idiopathic. 4. Depression, not otherwise specified. 5. Obesity; body mass index 33.1. 6. Major depression with psychotic features currently in remission. 7. Posttraumatic stress disorder. PLAN: Continue current medication and treatment plan. Patient was issued Augmentin before discharge. Care was discussed with the patient.
[2017-03-05] MEDS: BISACODYL 10 MG SUPP RECTAL STA ×2 (17:42→20:46)
[2017-03-05] MEDS: OLANZapine 5 MG TAB PO SCH (20:44)
[2017-03-05] MEDS: VERAPAMIL SR 180 MG TABLET.ER PO SCH (20:44)
[2017-03-05] MEDS: DOXEPIN 25 MG CAP PO SCH (20:45)
[2017-03-06] MEDS: KETOROLAC 30 MG/ML 1 ML VIAL IVP PRN (06:29)
[2017-03-06 07:20] LABS: Basophils % (A) 0 %; CH 29.7; CHCM 30.7; Eosinophils # (A) 0.5 k/uL (0-0.7); Eosinophils % (A) 4 %; HCT 37.8 % (34.0-46.0); HDW 2.55; HGB 11.6 gm/dL (11.4-16.0); Hypochromasia Slight; Luc # (Auto) 0.25; Luc % (Auto) 2; Lymphocytes # (A) 1.9 k/uL (1.0-4.8); Lymphocytes % (A) 16 %; MCH 29.8 pg (25.0-35.0); MCHC 30.6 g/dL (31.0-37.0); MCV 97.3 fL (80.0-100.0); Mean Platelet Volume 6.8; Monocytes # (A) 0.6 k/uL (0-1.0); Monocytes % (A) 5 %; Neutrophils # (A) 8.6 k/uL (1.3-7.7); Neutrophils % (A) 72 %; RBC 3.88 m/uL (3.80-5.40); RDW 14.1 % (11.5-15.5); WBC 11.9 k/uL (3.8-10.6); WBC (Perox) 12.11
[2017-03-06 08:06] LABS: Anion Gap 9 mmol/L; Blood Urea Nitrogen 11 mg/dL (7-17); Calcium 8.8 mg/dL (8.4-10.2); Carbon Dioxide 19 mmol/L (22-30); Chloride 114 mmol/L (98-107); Glucose 95 mg/dL (74-99); Non-African American GFR(MDRD) >60 (>60 ml/min/1.73 sqM); Sodium 142 mmol/L (137-145)
[2017-03-06] MEDS: PIPERACILLIN-TAZOBACTAM 3.375 GM in DEXTROSE/WATER 1 50ML.BAG IVPB SCH (08:25)
[2017-03-06] MEDS: FAMOTIDINE 20 MG TAB PO SCH (08:27)
[2017-03-06] MEDS: FUROSEMIDE 40 MG TAB PO SCH (08:27)
[2017-03-06] MEDS: POTASSIUM CHLORIDE ER 10 MEQ TAB.ER.PRT PO SCH (08:27)
[2017-03-06] MEDS: MONTELUKAST 10 MG TAB PO SCH (08:27)
[2017-03-06] MEDS: LITHIUM CARBONATE 300 MG CAP PO SCH (08:27)
[2017-03-06] MEDS: TOPIRAMATE 100 MG TAB PO SCH (08:27)
--- NOTE | 2017-03-06 08:40 | P.DS ---
Providers Date of admission: 03/04/17 01:55 Expected date of discharge: 03/06/17 Attending physician: Symone Gregory Consults: 03/04/17 02:58 Consult Physician Routine Consulting Provider: Cale Nolasco Consult Reason/Comments: medical management Do you want consulting provider notified?: Yes, Notify in am 03/04/17 11:12 Consult Physician Routine Consulting Provider: Cristhian Goel Consult Reason/Comments: WBC 26.3 Do you want consulting provider notified?: Yes Primary care physician: Fredis Chan [facility] Course: 1-year-old female presented on the day of admission to the emergency room with a chief complaint of constipation no bowel movement for multiple days. Patient states that she did try [id number] products it did not work. Patient states she had a small amount of stool noted some blood in it came into the emergency room for the above-mentioned symptoms. Additionally patient reported having abdominal pain. Patient gives a history of having irritable bowel syndrome with constipation. Patient states she had not passed any gas in the last day and a half. Had been running a low-grade temp. Patient states the discomfort was greatest in the left lower quadrant intermittent crampy sensation. A CAT scan of the abdomen pelvis with contrast was obtained. No evidence of a bowel obstruction. Some perirectal straining mild wall thickening of the rectum no surgical intervention indicated patient was placed on IV hydration and bowel rest IV antibiotics and monitored the diet was able to be advanced abdominal pain resolved passing gas. On the day of discharge the white count was down to 11.9. Patient was up ambulatory on the unit tolerating a diet stated passing gas and was anxious to be discharged home stated the left lower quadrant abdominal discomfort resolved. Infectious disease indicated the patient could be discharged with Flagyl and levofloxacin for a 5 day course. Impression discharge diagnosis Present on admission left lower abdominal pain suspect due to constipation Chronic constipation Irritable bowel disease Degenerative disc disease A mood disorder bipolar Resolving leukocytosis Mild asthma no exacerbation Anxiety nonspecified Present on admission left lower abdominal pain likely due to mild localized colitis Obesity BMI 33 CAT scan of the abdomen pelvis proctitis The above dictated assessment and findings were discussed with dr graves . Impression and the plan of care have been dictated as directed. Anisha Norris nurse practitioner acting as a scribe for dr graves Patient Condition at Discharge: Stable Plan - Discharge Summary New Discharge Prescriptions: Levofloxacin [Levaquin] 500 mg PO DAILY #5 tab metroNIDAZOLE [Flagyl] 500 mg PO Q8HR #15 tab Discharge Medication List Famotidine [Pepcid] 20 mg PO BID 02/07/15 [History] Albuterol Inhaler [Ventolin Hfa Inhaler] 2 puff INHALATION RT-QID PRN 09/11/15 [ History] Albuterol Nebulized [Ventolin Nebulized] 2.5 mg INHALATION RT-QID PRN 09/11/15 [ History] Montelukast [Singulair] 10 mg PO QAM 09/11/15 [History] Verapamil Sr [Isoptin Sr] 180 mg PO HS 03/10/16 [History] Ondansetron Odt [Zofran ODT] 4 mg PO Q8HR PRN 07/01/16 [History] SUMAtriptan SUCCINATE [Imitrex] 50 mg PO BID PRN 07/01/16 [History] Acetaminophen Tab [Tylenol] 650 mg PO Q4HR PRN #0 tab 02/01/17 [Rx] Doxepin HCl [SINEquan] 50 mg PO HS 30 Days 02/01/17 [Rx] [place] Carbonate 600 mg PO BID 30 Days 02/01/17 [Rx] Ergocalciferol [Vitamin D2 (DRISDOL)] 50,000 unit PO WE 03/03/17 [History] Furosemide [Lasix] 40 mg PO BID 03/03/17 [History] OLANZapine [ZyPREXA] 15 mg PO HS 03/03/17 [History] Potassium Chloride [Klor-Con 10] 10 meq PO TID 03/03/17 [History] Topiramate [Topamax] 100 mg PO BID 03/03/17 [History] Levofloxacin [Levaquin] 500 mg PO DAILY #5 tab 03/06/17 [Rx] metroNIDAZOLE [Flagyl] 500 mg PO Q8HR #15 tab 03/06/17 [Rx] Follow up Appointment(s)/Referral(s): Fredis Palacio MD [Primary Care Provider] - 1-2 days Discharge Disposition: HOME SELF-CARE
[2017-03-06 08:42] VITALS: BP 125/82; PULSE 88; RESP 17; TEMP 97
[2017-03-08] MEDS ORDERED: ERGOCALCIFEROL 50,000 UNIT CAP PO SCH (12:00)
== END 2017-03-06 10:04 | disposition home or self-care (01) ==
LOC: EC 18:41 → 3SUR 03-04 01:55
PROVIDERS: ADMIT Surgery; ATTEND Surgery
DX: R10.9 Unspecified abdominal pain (principal); K58.1 Irritable bowel syndrome with constipation; K52.9 Noninfective gastroenteritis and colitis, unspecified; K62.89 Other specified diseases of anus and rectum; M79.7 Fibromyalgia; F51.04 Psychophysiologic insomnia; F32.3 Major depressive disorder, single episode, severe with psychotic features; F43.10 Post-traumatic stress disorder, unspecified; E66.9 Obesity, unspecified; J98.11 Atelectasis; K76.0 Fatty (change of) liver, not elsewhere classified; J45.909 Unspecified asthma, uncomplicated; M54.9 Dorsalgia, unspecified; G89.29 Other chronic pain; G43.909 Migraine, unspecified, not intractable, without status migrainosus; Z79.899 Other long term (current) drug therapy; Z90.710 Acquired absence of both cervix and uterus; Z87.891 Personal history of nicotine dependence; Z82.49 Family history of ischemic heart disease and other diseases of the circulatory system; Z82.5 Family history of asthma and other chronic lower respiratory diseases; Z83.3 Family history of diabetes mellitus; Z80.1 Family history of malignant neoplasm of trachea, bronchus and lung; Z68.33 Body mass index [BMI] 33.0-33.9, adult
CPT/HCPCS: 96361 ×2; 96374 ×2; 99285 ×2; 96376 ×2; 96365; 96366 ×3; 96367; 96375 ×2; 36415; 80053; 80048 ×2; 82150; 82565; 83690; 84520; 85025 ×4; 85730; 74020; 74177 ×2; G0378 ×3; J2270 ×2; J1644; J2405; J1956; J1885 ×3; J2543 ×3; Q9967 ×2

== ENCOUNTER 2017-03-09 17:36 | Emergency (ER) | payer OTHER ==
[2017-03-09] MEDS ORDERED: SODIUM CHLORIDE 0.9% 1,000 ML IV ONE (18:33)
[2017-03-09] MEDS ORDERED: KETOROLAC 30 MG/ML 1 ML VIAL IVP STA (18:48)
--- NOTE | 2017-03-09 18:48 | ED ---
Abdominal Pain HPI - General Chief Complaint: Abdominal Pain Stated Complaint: abd pain Time Seen by Provider: 03/09/17 18:08 Source: patient, RN notes reviewed, old records reviewed Mode of arrival: ambulatory Limitations: no limitations - History of Present Illness Initial Comments: This is a 31-year-old female presents emergency Department with chief complaint of lower abdominal pain. Patient reports that she was sinus with colitis a week ago. She reports that he had abdominal pain and was sinus with colitis a week ago. Patient reports that she's not been able to have a bowel movement when the past 3 days. Patient reports that whenever she urinates or has a family she was a lower pelvic pressure. She denies any nausea or vomiting. She reports that she has been taking antibiotics regularly. Denies any fevers or chills. She reports that she's been trying magnesium citrate, Dulcolax. - Related Data Home Medications Medication Instructions Recorded Confirmed Famotidine [Pepcid] 20 mg PO BID 02/07/15 03/09/17 Albuterol Inhaler [Ventolin Hfa 2 puff INHALATION RT-QID PRN 09/11/15 03/09/17 Inhaler] Albuterol Nebulized [Ventolin 2.5 mg INHALATION RT-QID PRN 09/11/15 03/09/17 Nebulized] Montelukast [Singulair] 10 mg PO QAM 09/11/15 03/09/17 Verapamil Sr [Isoptin Sr] 180 mg PO HS 03/10/16 03/09/17 Ondansetron Odt [Zofran ODT] 4 mg PO Q8HR PRN 07/01/16 03/09/17 SUMAtriptan SUCCINATE [Imitrex] 50 mg PO BID PRN 07/01/16 03/09/17 Ergocalciferol [Vitamin D2 50,000 unit PO WE 03/03/17 03/09/17 (DRISDOL)] Furosemide [Lasix] 40 mg PO BID 03/03/17 03/09/17 OLANZapine [ZyPREXA] 15 mg PO HS 03/03/17 03/09/17 Potassium Chloride [Klor-Con 10] 10 meq PO TID 03/03/17 03/09/17 Topiramate [Topamax] 100 mg PO BID 03/03/17 03/09/17 Previous Rx's Medication Instructions Recorded Acetaminophen Tab [Tylenol] 650 mg PO Q4HR PRN #0 tab 02/01/17 Doxepin HCl [SINEquan] 50 mg PO HS 30 Days 02/01/17 [place] Carbonate 600 mg PO BID 30 Days 02/01/17 Levofloxacin [Levaquin] 500 mg PO DAILY #5 tab 03/06/17 metroNIDAZOLE [Flagyl] 500 mg PO Q8HR #15 tab 03/06/17 traMADol HCl [Ultram] 50 mg PO Q4H PRN #12 tab 03/09/17 Allergies Allergy/AdvReac Type Severity Reaction Status Date / Time quetiapine fumarate AdvReac Unknown Tremors/Maxx Verified 03/09/17 18:44 [From Seroquel] liam divalproex sodium AdvReac Weight Gain Verified 03/09/17 18:44 [From Depakote] Review of Systems ROS Statement: Those systems with pertinent positive or pertinent negative responses have been documented in the HPI. ROS Other: All systems not noted in ROS Statement are negative. Past Medical History Past Medical History: Asthma, Fibromyalgia, Musculoskeletal Disorder Additional Past Medical History / Comment(s): Anxiety, depression, chronic back pain. degenerative disc disease, migraines, IBS History of Any Multi-Drug Resistant Organisms: None Reported Past Surgical History: Hysterectomy Additional Past Surgical History / Comment(s): PREVIOUS EPIDURAL PAIN INJECTIONS , Dental surgery involving complete tooth removal Past Anesthesia/Blood Transfusion Reactions: No Reported Reaction Past Psychological History: Anxiety, Bipolar, Depression, PTSD Additional Psychological History / Comment(s): History of mental illness. . His 2 children. No animals in the home. No travel. experience. No current tobacco or alcohol use Smoking Status: Former smoker Past Alcohol Use History: None Reported Additional Past Alcohol Use History / Comment(s): Pt. denies current alcohol use or a past history of alcohol abuse. BAT 0 Past Drug Use History: Marijuana - Past Family History Mother Family Medical History: No Reported History Father Family Medical History: Cancer, Congestive Heart Failure (CHF), COPD, Diabetes Mellitus, Hypertension Additional Family Medical History / Comment(s): throat , mouth and lung CA. triple bypass. stents., Sister(s) Family Medical History: Cancer, Hyperlipidemia Additional Family Medical History / Comment(s): breast General Exam - General Exam Comments Initial Comments: 31-year-old female. No acute distress. Limitations: no limitations General appearance: alert, in no apparent distress Head exam: Present: atraumatic, normocephalic, normal inspection Eye exam: Present: normal appearance, PERRL, EOMI. Absent: scleral icterus, conjunctival injection, periorbital swelling ENT exam: Present: normal exam, mucous membranes moist Neck exam: Present: normal inspection. Absent: tenderness, meningismus, lymphadenopathy Respiratory exam: Present: normal lung sounds bilaterally. Absent: respiratory distress, wheezes, rales, rhonchi, stridor Cardiovascular Exam: Present: regular rate, normal rhythm, normal heart sounds. Absent: systolic murmur, diastolic murmur, rubs, gallop, clicks GI/Abdominal exam: Present: soft, tenderness (Lower abdominal and suprapubic tenderness.), normal bowel sounds. Absent: distended, guarding, rebound, rigid Extremities exam: Present: normal inspection, full ROM, normal capillary refill. Absent: tenderness, pedal edema, joint swelling, calf tenderness Back exam: Present: normal inspection Neurological exam: Present: alert, oriented X3, CN II-XII intact Psychiatric exam: Present: normal affect, normal mood Skin exam: Present: warm, dry, intact, normal color. Absent: rash Course Vital Signs 03/09/17 03/09/17 17:37 19:50 Temperature 98.2 F 98.6 F Pulse Rate 108 H 98 Respiratory 20 16 Rate Blood Pressure 138/82 112/78 O2 Sat by Pulse 99 98 Oximetry - Reevaluation(s) Reevaluation #1: 03/09/17 20:17 At this time will comply system was administered. Medical Decision Making - Medical Decision Making This is a 31-year-old female chief complaint of lower abdominal pain for the past day. She's not had a bowel movement the past 3 days. Recent diagnosis of colitis. Patient was given IV fluids and lab work. She also has received a milk and molasses enema. Patient reports improvement after having the bowel movement. Patient lab work was reviewed patient is a mildly elevated white count of 15.4. Discussed with Dr. Alaniz. Given the patient's had 2 CTs in the past week we'll hold off on 1. She's not overly tender no guarding. Patient will be discharged with pain medication and advised to follow-up tomorrow with her primary care provider. Patient's history plan will comply. Return parameters were discussed. - Lab Data Result diagrams: 03/09/17 19:10 03/09/17 19:10 Lab Results 03/09/17 03/09/17 03/09/17 Range/Units 19:10 19:10 19:10 WBC 15.3 H (3.8-10.6) k/uL RBC 4.10 (3.80-5.40) m/uL Hgb 12.6 (11.4-16.0) gm/dL Hct 38.5 (34.0-46.0) % MCV 93.9 (80.0-100.0) fL MCH 30.7 (25.0-35.0) pg MCHC 32.7 (31.0-37.0) g/dL RDW 14.2 (11.5-15.5) % Plt Count 488 H (150-450) k/uL Neutrophils % 78 % Lymphocytes % 13 % Monocytes % 4 % Eosinophils % 3 % Basophils % 0 % Neutrophils # 12.0 H (1.3-7.7) k/uL Lymphocytes # 2.0 (1.0-4.8) k/uL Monocytes # 0.6 (0-1.0) k/uL Eosinophils # 0.5 (0-0.7) k/uL Basophils # 0.1 (0-0.2) k/uL Sodium 142 (137-145) mmol/L Potassium 3.6 (3.5-5.1) mmol/L Chloride 109 H (98-107) mmol/L Carbon Dioxide 23 (22-30) mmol/L Anion Gap 10 mmol/L BUN 7 (7-17) mg/dL Creatinine 0.74 (0.52-1.04) mg/dL Est GFR (MDRD) Af Amer >60 (>60 ml/min/1.73 sqM) Est GFR (MDRD) Non-Af >60 (>60 ml/min/1.73 sqM) Glucose 105 H (74-99) mg/dL Calcium 8.9 (8.4-10.2) mg/dL Total Bilirubin 0.4 (0.2-1.3) mg/dL AST 49 H (14-36) U/L ALT 62 H (9-52) U/L Alkaline Phosphatase 153 H (38-126) U/L Total Protein 7.6 (6.3-8.2) g/dL Albumin 4.0 (3.5-5.0) g/dL Amylase 55 (30-110) U/L Lipase 74 (23-300) U/L Urine Color Colorless Urine Appearance Clear (Clear) Urine pH 7.5 (5.0-8.0) Ur Specific Metter 1.002 (1.001-1.035) Urine Protein Negative (Negative) Urine Glucose (UA) Negative (Negative) Urine Ketones Negative (Negative) Urine Blood Negative (Negative) Urine Nitrite Negative (Negative) Urine Bilirubin Negative (Negative) Urine Urobilinogen <2.0 (<2.0) mg/dL Ur Leukocyte Esterase Negative (Negative) Disposition Clinical Impression: Constipation Disposition: HOME SELF-CARE Condition: Stable Instructions: Constipation (ED) Additional Instructions: Patient advised to rest, increase fluids. Patient advised to follow-up tomorrow with her primary care physician. Return to emergency department if any alarming signs or symptoms occur. Continue use treatment such as milk of Magnesia, magnesium citrate and Dulcolax for help with bowel movements. Prescriptions: traMADol HCl [Ultram] 50 mg PO Q4H PRN #12 tab PRN Reason: Pain Referrals: Fredis Palacio MD [Primary Care Provider] - 1-2 days Time of Disposition: 21:10
[2017-03-09 19:21] LABS: Basophils # (A) 0.1 k/uL (0-0.2); Basophils % (A) 0 %; CH 29.7; CHCM 31.8; Eosinophils # (A) 0.5 k/uL (0-0.7); Eosinophils % (A) 3 %; HCT 38.5 % (34.0-46.0); HDW 2.67; HGB 12.6 gm/dL (11.4-16.0); Luc # (Auto) 0.27; Luc % (Auto) 2; Lymphocytes % (A) 13 %; MCH 30.7 pg (25.0-35.0); MCHC 32.7 g/dL (31.0-37.0); MCV 93.9 fL (80.0-100.0); Mean Platelet Volume 6.7; Monocytes # (A) 0.6 k/uL (0-1.0); Monocytes % (A) 4 %; Neutrophils % (A) 78 %; RDW 14.2 % (11.5-15.5); WBC 15.3 k/uL (3.8-10.6)
--- NOTE | 2017-03-09 19:23 | XR ---
EXAMINATION TYPE: XR KUB DATE OF EXAM: 03/09/2017 7:19 PM COMPARISON: 12/19/2016 HISTORY: Abdominal pain TECHNIQUE: 2 views FINDINGS: There is no sign of intestinal obstruction or pneumoperitoneum. Fecal pattern is normal. Jessica ng bases are clear. There are no pathologic calcifications over the kidneys. IMPRESSION: Nonacute abdomen. No change.
[2017-03-09 19:30] LABS: Appearance,Urine Clear (Clear); Bilirubin,Urine Negative (Negative); Glucose,Urine (UA) Negative (Negative); Ketones,Urine Negative (Negative); Leukocyte Esterase,Urine Negative (Negative); Nitrite,Urine Negative (Negative); PH, Urine 7.5 (5.0-8.0); Protein,Urine Negative (Negative); Specific Gravity,Urine 1.002 (1.001-1.035); UA Billing (MACRO vs. MICRO) CHEM; Urobilinogen,Urine <2.0 mg/dL (<2.0)
[2017-03-09 19:36] LABS: ALT 62 U/L (9-52); AST 49 U/L (14-36); Alkaline Phosphatase 153 U/L (38-126); Amylase 55 U/L (30-110); Anion Gap 10 mmol/L; Blood Urea Nitrogen 7 mg/dL (7-17); Calcium 8.9 mg/dL (8.4-10.2); Carbon Dioxide 23 mmol/L (22-30); Chloride 109 mmol/L (98-107); Glucose 105 mg/dL (74-99); Non-African American GFR(MDRD) >60 (>60 ml/min/1.73 sqM); Potassium 3.6 mmol/L (3.5-5.1); Sodium 142 mmol/L (137-145); Total Bilirubin 0.4 mg/dL (0.2-1.3); Total Protein 7.6 g/dL (6.3-8.2)
[2017-03-09] MEDS ORDERED: HYDROmorphone 1 MG/ML 1 ML SYRINGE IVP STA (20:03)
[2017-03-09 21:24] VITALS: BP 142/67; PULSE 100; RESP 18; TEMP 98.4
== END 2017-03-09 21:24 | disposition home or self-care (01) ==
LOC: EC 17:36
DX: K59.00 Constipation, unspecified (principal); D72.829 Elevated white blood cell count, unspecified; J45.909 Unspecified asthma, uncomplicated; F31.9 Bipolar disorder, unspecified; Z87.891 Personal history of nicotine dependence; Z79.899 Other long term (current) drug therapy; Z88.8 Allergy status to other drugs, medicaments and biological substances
CPT/HCPCS: 36415; 80053; 82150; 83690; 85025; 82272; 81003; 74000; 99284; 96374; 96375; 96361 ×2; J1885; J1170

== ENCOUNTER 2017-03-22 07:58 | Day surgery (SDC) | payer OTHER ==
[2017-03-20 09:51] VITALS: BMI 31.4
[2017-03-22 10:31] VITALS: TEMP 97.5
[2017-03-22] MEDS ORDERED: LIDOCAINE 1% 20 ML VIAL (10MG/ML) FOR IV START INTRADERMA ONE (10:31)
[2017-03-22] MEDS ORDERED: fentaNYL (PF) 50 MCG/ML 2 ML AMP ONE (10:39)
[2017-03-22] MEDS ORDERED: IOHEXOL 180 MG/ML 1 ML ML ONE (10:39)
[2017-03-22] MEDS ORDERED: DEXAMETHASONE SOD PHOS (MDV) 100 MG/10 ML VIAL ONE (10:39)
[2017-03-22] MEDS ORDERED: MIDAZOLAM 2 MG/2 ML VIAL ONE (10:39)
--- NOTE | 2017-03-22 10:56 | P.PCN ---
Date of Procedure: 03/22/17 Preoperative Diagnosis: Postoperative Diagnosis: Procedure(s) Performed: . PROCEDURE 1. Cervical epidural steroid injection under fluoroscopic guidance, C7-T1 2. Cervical epidurogram. PREOPERATIVE DIAGNOSIS: 1- Cervical Degenerative Disc Diseases POSTOPERATIVE DIAGNOSIS: : 1- Cervical Degenerative Disc Diseases ANESTHESIA: Local anesthesia with 1% lidocaine and IV sedation with Versed 2 mg and Fentanyl 50 mcg. EBL 0 PROCEDURE INDICATION: The patient with neck pain and radiculitis unresponsive to conservative treatment consents for procedure. PROCEDURE DESCRIPTION / TECHNIQUE: The patient was seen and identified in the preoperative area. Risks, benefits, complications, including but not limited to infections ,bleeding , allergic reactions to the medications ,and not complete pain releife, and alternatives were discussed with the patient, the patient agreed to proceed with the procedure and signed the consent. Patient was taken to the OR and time out was completed. The patient was placed in the prone position on the procedure table. A pillow was placed under the patients chest to increase the cervical interlaminar space. The cervical area was prepped and draped in the usual sterile fashion. Vital signs were closely monitored during the procedure. Conscious sedation was used during the procedure to decrease patients anxiety. Using anterior-posterior fluoroscopy, the C7-T1 interlaminar space was identified and the skin over this site was marked and then infiltrated with 1% lidocaine subcutaneously. Subsequently, a 20-gauge 3-1/2-inch Tuohy epidural needle was inserted and advanced toward the epidural space by means of the `` hanging-drop technique and guided by AP and lateral fluoroscopy. The correct needle position in the epidural space was verified with the injection of 2 mL of the water soluble contrast dye Isovue-180 and observing an excellent epidurogram with the epidural spread of the dye, after negative aspiration for blood and CSF and in the absence of paresthesias. Again after negative aspiration, mixture containing 20 mg Dexamethasone and 2 ml of preservative- free normal saline injected and a washout of epidurogram was seen. Needle was withdrawn intact, skin was cleansed, and bandages were applied. Complications= none. Disposition= patient was placed in supine position and transferred to the recovery room area in stable condition and there was no evidence of upper or lower extremity motor or sensory deficit after the procedure patient was discharged from recovery room after discharge criteria met and home discharge instructions was given by the staff and patient will follow with the pain clinic in 2-4 weeks Implants: Indications for Procedure: Operative Findings: Description of Procedure:
[2017-03-22] MEDS ORDERED: IV FLUID CONTINUATION 1,000 ML IV ONE (11:01)
[2017-03-22 11:05] VITALS: RESP 18
[2017-03-22 11:24] VITALS: BP 125/87; PULSE 85
--- NOTE | 2017-03-22 12:24 | FL ---
FLUOROSCOPY 3 of fluoroscopy time were utilized during Pain Injection. 2 images document the procedure.
== END 2017-03-22 11:32 | disposition home or self-care (01) ==
LOC: ORPAIN 07:58
PROVIDERS: ATTEND Specialist
DX: M50.10 Cervical disc disorder with radiculopathy, unspecified cervical region (principal); J45.909 Unspecified asthma, uncomplicated; M79.7 Fibromyalgia; Z90.710 Acquired absence of both cervix and uterus
CPT/HCPCS: 62321; 99152; J2250; Q9965; J3010; J1100; 80048

== ENCOUNTER → 2017-04-19 | Outpatient (CLI) | payer OTHER ==
[2017-04-19 11:28] VITALS: BP 122/84; PULSE 94; RESP 18; TEMP 98.4
--- NOTE | 2017-04-19 11:46 | P.PN ---
Progress Note - Text Patient returns for followup for chronic back and hip pain bilaterally, along with persistent headaches. Patient recently underwent RANJAN x 2 with essentially no relief of her headaches Patient continues on Percocet medications for pain with good relief. Patient denies adverse drug effects from medications. Today, pt denies new-onset weakness, bowel/bladder incontinence, or any other signs or symptoms of cauda equina syndrome. There are no signs of acute intoxication, and no indications of medication diversion or overuse. In addition to above, 13-point review of systems is also negative for chest pain , shortness of breath, changes in vision, changes in hearing, new onset weakness , abdominal pain, diarrhea, extreme fatigue, malaise, fever, skin changes, homicidal or suicidal ideation, or bowel or bladder incontinence. Vital Signs: Reviewed in EMR Gen: WDWN, AAOx3, NAD HEENT: NCAT, EOMI, hearing grossly normal Pulm: resp unlabored Abd: soft, NT, ND Neck: supple, trachea midline +cervical facet tenderness bilateral Lumbar paravertebral tenderness: + Facet loading: ++ bilateral SI joint tenderness: + R > L Terrell's test: ++ bilateral Straight leg raise: neg bilateral Neuro: CN II-XII grossly intact, muscle strength lower extremities PRESERVED Imaging: Reviewed in EMR Assessment: 1. sacroiliitis 2. lumbar spondylosis without myelopathy 3. chronic pain syndrome 4. cervical spondylosis without myelopathy Plan: 1. Explanation: Opioid and psychological risk scores were reviewed. Diagnoses , prognoses, and multiple treatment options including but not limited to physical therapy, interventional therapies, adjuvant medical therapies, narcotic medication therapies, and surgery were discussed with the patient and all questions were answered to the patient's satisfaction. 2. Opioid agreement: Patient has previously signed narcotic agreement, and was orally counseled to not overuse, abuse, divert, or cell medications, and to take them as prescribed by only 1 healthcare provider. The patient was also counseled to store opioid medications in a safe and preferably locked location. Patient was also counseled against driving while using narcotic medications and also to not use alcohol or any illicit or recreational drugs. The patient verbalized understanding that lack of compliance with any of the above and likely result in failure to renew narcotic prescriptions, possible discharge from the clinic, and possible legal ramifications thereafter if indicated. 3. Counseling: The patient was counseled extensively on BODY MASS INDEX, EXERCISE. Specifically, the patient was instructed regarding the importance of wt loss and exercise in the context of both chronic pain and overall health. 4. Procedures: bilateral SIJ injection 5. Consultations: None 6. Investigations: MRI C-spine to evaluate facet arthropathy given persistent headaches 7. Medications: Percocet 7.5/325 #60 (for two months' supply) 8. Disposition: f/u for procedure as scheduled PQRS measures: 1-Patient's medications are documented in the chart. 2-Tobacco use is positive, counseling given 3-Patient has had a pneumococcal vaccine. 4-Advanced care planning discussed, patient unable to give. 5-Opioid contract signed with the patient. 6-Pain positive, follow-up visit or procedure scheduled 7-Patient's blood pressure measured and documented, and patient will follow up with the primary care due to hypertension. 8-Patient's weight was measured, and body mass index ABOVE the normal limits, and counseling was done. Patient instructed to follow up with PCP. 9-Patient WAS NOT identified as an unhealthy alcohol user.
== END | disposition home or self-care (01) ==
LOC: PNWHC3 10:57
PROVIDERS: ATTEND Anesthesiology
DX: M47.816 Spondylosis without myelopathy or radiculopathy, lumbar region (principal); M47.812 Spondylosis without myelopathy or radiculopathy, cervical region; M46.1 Sacroiliitis, not elsewhere classified; G89.4 Chronic pain syndrome; Z79.891 Long term (current) use of opiate analgesic
CPT/HCPCS: 99211

== ENCOUNTER 2017-04-27 11:10 | Day surgery (SDC) | payer OTHER ==
[2017-04-27] MEDS ORDERED: LIDOCAINE 1% 20 ML VIAL (10MG/ML) FOR IV START INTRADERMA ONE (11:44)
[2017-04-27 12:02] VITALS: RESP 16; TEMP 97.6
[2017-04-27 12:50] LABS: Lithium 0.5 mmol/L
--- NOTE | 2017-04-27 12:56 | P.PCN ---
Date of Procedure: 04/27/17 Preoperative Diagnosis: Bilateral sacroiliitis Postoperative Diagnosis: Same as above Procedure(s) Performed: Bilateral sacroiliac joint steroid injection under fluoroscopic guidance Implants: Anesthesia: other (Local with moderate sedation) Surgeon: Noemi Casillas Pathology: none sent Condition: stable Disposition: PACU Indications for Procedure: Operative Findings: Description of Procedure: The patient was seen in preop holding area consent was obtained then she was brought into the procedure room and placed in prone position. Skin was prepped with DuraPrep and draped in a sterile manner. Lidocaine 1% was used to numb the skin up at the target points that were chosen as follows: I started by doing the right sacroiliac joint, the AP view of fluoroscopy was used to identify this joint and then the C-arm was tilted to the left oblique position to superimpose the anterior and posterior joint lines on each other and slightly cephalad then the target point was at the inferior one third of this unified joint line. I used 22-gauge 3-1/2 inch Quincke spinal needle for this procedure and after getting into the joint I injected 20 mg of Kenalog +2 MLS of Marcaine 0.5%. The left sacroiliac joint was done in the same manner and the total dose of steroids given during this procedure was 40 mg of Kenalog. Patient tolerated procedure well.
[2017-04-27] MEDS ORDERED: IV FLUID CONTINUATION 1,000 ML IV ONE (13:00)
--- NOTE | 2017-04-27 13:11 | FL ---
EXAMINATION TYPE: FL guided pain mgmt statistic DATE OF EXAM: 04/27/2017 CLINICAL HISTORY: Low back and sacroiliac joint pain. TECHNIQUE: Fluoroscopy. COMPARISON: None. FINDINGS: Fluoroscopic guidance was provided during pain relief procedure performed by Dr. Casillas . A total of 8 seconds of fluoroscopic time was utilized during the procedure and 1 spot intraoperati ve image is acquired. Single intraoperative image acquired shows needle localization at level of inf erior sacroiliac joint. IMPRESSION: As Above.
[2017-04-27 13:20] VITALS: BP 124/83; PULSE 90
== END 2017-04-27 13:31 | disposition home or self-care (01) ==
LOC: ORPAIN 11:10
PROVIDERS: ATTEND Anesthesiology
DX: G89.4 Chronic pain syndrome (principal); M46.1 Sacroiliitis, not elsewhere classified; Z79.891 Long term (current) use of opiate analgesic; M47.816 Spondylosis without myelopathy or radiculopathy, lumbar region; M47.812 Spondylosis without myelopathy or radiculopathy, cervical region
CPT/HCPCS: 80061; 80178; J2250; J3301; J3010; G0260

== ENCOUNTER → 2017-05-03 | Outpatient (CLI) | payer OTHER ==
--- NOTE | 2017-05-03 14:15 | MR ---
MRI CERVICAL SPINE: CLINICAL HISTORY: Cervical headache and spondylosis per order. Headache with neck pain for years caus ing pain or weakness in both arms and fingers per patient. TECHNIQUE: Multiplanar, multisequence imaging of the cervical spine is performed without IV contrast. COMPARISON: Cervical spine MRI February 23, 2015. FINDINGS: Sagittal images of the cervical spine show the craniocervical junction to appear within nor mal limits. The cervical and upper thoracic spinal cord is normal in course, caliber, and signal. V ertebral alignment is stable and straightened. There is persistent small posterior disc herniation C 5-C6 level seen on sagittal images. The vertebral body and intravertebral disk heights are normal. T he bone marrow signal intensity is within normal limits. No significant spurring is seen. Axial images show the C2-C3, C3-C4, C4-C5 levels all to remain within normal limits. Axial images at C5-C6 level show broad-based left paracentral disc protrusion effacing anterolateral thecal sac, bilateral neural foramina remain patent on axial image 22, no significant change from arabella or. Axial images at C6-C7 and C7-T1 levels are felt to remain within normal limits.. IMPRESSION: Straightening of cervical spine with posterior disc herniation C5-C6 level redemonstrated . No significant change from prior MRI.
== END | disposition home or self-care (01) ==
LOC: RADMRIMAIN 13:02
PROVIDERS: ATTEND Anesthesiology
DX: M50.222 Other cervical disc displacement at C5-C6 level (principal)
CPT/HCPCS: 72141

== ENCOUNTER → 2017-06-14 | Outpatient (CLI) | payer OTHER ==
[2017-06-14 12:50] VITALS: BP 121/83; PULSE 78; RESP 14; TEMP 97.8
--- NOTE | 2017-06-14 13:09 | P.PN ---
Progress Note - Text This is a 31-year-old female with lower back pain due to lumbar spondylosis and sacroiliac joint dysfunction and sacroiliitis. The patient had good relief of pain after her last sacroiliac joint steroid injection however that did not last for more than couple of days as she states. He takes Percocet 7.5 mg 1-2 pills every day. I will schedule the patient to have another sacroiliac joint steroid injection bilaterally with only 40 mg of Kenalog . He gets the same relief of pain then we'll plan on doing frequency ablation of the dorsal ramus of L5 and the lateral branches of S1,S2,S3.
== END ==
LOC: PNWHC3 12:17
PROVIDERS: ATTEND Anesthesiology
DX: M47.816 Spondylosis without myelopathy or radiculopathy, lumbar region (principal); Z79.891 Long term (current) use of opiate analgesic
CPT/HCPCS: 99211

== ENCOUNTER → 2017-06-16 | Outpatient (CLI) | payer OTHER ==
--- NOTE | 2017-06-16 13:32 | US ---
EXAMINATION TYPE: US pelvis complete transvag DATE OF EXAM: 06/16/2017 COMPARISON: 12/03/2016 CLINICAL HISTORY: R10.2 PELVIC AND PERINEAL PAIN. Left pelvic pain, hysterectomy 7 years ago TECHNIQUE: Transvaginal (TV) and Transabdominal (TA) Date of LMP: 7 years ago EXAM MEASUREMENTS: Uterus: Surgically absent Endometrial Stripe: Surgically absent Right Ovary: 2.4 x 1.7 x 1.6 cm Left Ovary: 4.1 x 2.8 x 2.3 cm 1. Uterus: Surgically absent, vaginal cuff = 1.2cm 2. Endometrium: Surgically absent 3. Right Ovary: limited evaluation due to overlying bowel 4. Left Ovary: limited evaluation due to overlying bowel, cystic area = 1.8 x 1.9 x 2.0cm 5. Bilateral Adnexa: appears wnl IMPRESSION: 1. Limited pelvic ultrasound. Bowel gas limits the examination. 2. Left ovarian cyst. Follow-up is recommended
== END | disposition home or self-care (01) ==
LOC: RADUSWWP 12:38
PROVIDERS: ATTEND Family Medicine
DX: N83.202 Unspecified ovarian cyst, left side (principal)
CPT/HCPCS: 76830; 76856

== ENCOUNTER 2017-06-22 12:17 | Day surgery (SDC) | payer OTHER ==
[2017-06-15 15:58] VITALS: BMI 31.9
[2017-06-22 12:58] VITALS: RESP 16; TEMP 98.2
[2017-06-22] MEDS ORDERED: LIDOCAINE 1% 20 ML VIAL (10MG/ML) FOR IV START INTRADERMA ONE (13:54)
--- NOTE | 2017-06-22 14:29 | P.PCN ---
Date of Procedure: 06/22/17 Preoperative Diagnosis: Postoperative Diagnosis: Procedure(s) Performed: Preoperative diagnoses= 1-bilateral sacroiliitis. 2-bilateral sacroiliac joint dysfunction. 3-lumbar spondylosis Postoperative diagnoses= same as preoperative diagnosis. Procedure= bilateral sacroiliac joint steroid injection under fluoroscopic guidance. Anesthesia= conscious sedation with Versed 2 mg and fentanyl 100 micrograms and local infiltration with lidocaine 1% 4 ml Estimated blood loss=minimal. Procedure indication= the patient had a history of severe chronic low back pain , diagnosed with sacroiliitis and lumbar sacral facet arthropathy unresponsive to conservative treatment. Procedure description= the patient was seen and identified in the preoperative holding area, risks and benefits and alternative of the procedure and possible complications discussed with the patient, and he agreed with the preceding, patient signed the consent, an IV was started, and vital signs were monitored and were stable throughout the procedure, patient was placed in the prone position or table and the lumbosacral area was prepped and draped with a sterile fashion, vital signs were closely monitored during the procedure, the fluoroscopy camera was placed in the contralateral oblique view on the right sacroiliac joint and the lower part of the joint was identified, local infiltration of the skin and subcutaneous tissue with lidocaine 1% 2 mL then a 22-gauge Quincke-type spinal needle advanced slowly under fluoroscopy and placed in the posterior and inferior border of the right sacroiliac joint, placement confirmed with AP and lateral view, and after appropriate needle placement confirmed and after negative aspiration for heme and CSF and there was no paresthesia during the injection, 3 ml of Marcaine 0.5% and 10 mg Dexamethason injected after negative aspiration, the needle removed, and the entire same procedure was repeated for the left sacroiliac joint Patient tolerated the procedure well without any complication, The patient returned to supine position after the back was cleaned and a Band- Aid applied, the patient transported to recovery room in stable condition and he was monitored for 30 minutes before he was discharged home and then patient was reexamined before going home and patient was discharged in stable condition and patient will follow up with the pain clinic in a few weeks Implants: Indications for Procedure: Operative Findings: Description of Procedure:
[2017-06-22 14:49] VITALS: PULSE 91
[2017-06-22 14:59] VITALS: BP 123/70
[2017-06-22] MEDS ORDERED: IV FLUID CONTINUATION 1,000 ML IV ONE (15:00)
--- NOTE | 2017-06-22 15:29 | FL ---
EXAMINATION TYPE: FL guided pain mgmt statistic DATE OF EXAM: 06/22/2017 CLINICAL HISTORY: Low back and sacroiliac joint pain. TECHNIQUE: Fluoroscopy. COMPARISON: None. FINDINGS: Fluoroscopic guidance was provided during pain relief procedure performed by Dr. Olsen . A total of 9 seconds of fluoroscopic time was utilized during the procedure and two spot images ar e acquired. Images acquired shows needle localization at level of bilateral sacroiliac joints. IMPRESSION: As Above.
== END 2017-06-22 15:11 | disposition home or self-care (01) ==
LOC: ORPAIN 12:17
PROVIDERS: ATTEND Specialist
DX: G89.29 Other chronic pain (principal); M46.1 Sacroiliitis, not elsewhere classified; M53.3 Sacrococcygeal disorders, not elsewhere classified; M47.816 Spondylosis without myelopathy or radiculopathy, lumbar region; M46.96 Unspecified inflammatory spondylopathy, lumbar region; J45.909 Unspecified asthma, uncomplicated; F41.9 Anxiety disorder, unspecified; F32.9 Major depressive disorder, single episode, unspecified; Z88.8 Allergy status to other drugs, medicaments and biological substances
CPT/HCPCS: 99152; J2250; J1100; J3010; G0260

== ENCOUNTER → 2017-11-11 | Outpatient (CLI) | payer OTHER ==
[2017-11-11 11:09] LABS: ALT 26 U/L (9-52); AST 23 U/L (14-36); Albumin 4.2 g/dL (3.5-5.0); Alkaline Phosphatase 145 U/L (38-126); Anion Gap 13 mmol/L; Blood Urea Nitrogen 4 mg/dL (7-17); Calcium 10.1 mg/dL (8.4-10.2); Carbon Dioxide 22 mmol/L (22-30); Chloride 112 mmol/L (98-107); Cholesterol 172 mg/dL (<200); Glucose 94 mg/dL (74-99); HDL Cholesterol 51 mg/dL (40-60); LDL Cholesterol,Calculated 107 mg/dL (0-99); Lithium 0.9 mmol/L; Potassium 4.1 mmol/L (3.5-5.1); Sodium 147 mmol/L (137-145); Total Bilirubin 0.3 mg/dL (0.2-1.3); Total Protein 7.6 g/dL (6.3-8.2); Triglycerides 68 mg/dL (<150)
== END | disposition home or self-care (01) ==
LOC: LABWHC1 10:34
PROVIDERS: ATTEND Nurse Practitioner
DX: F31.9 Bipolar disorder, unspecified (principal); F06.4 Anxiety disorder due to known physiological condition; Z79.899 Other long term (current) drug therapy
CPT/HCPCS: 36415; 80053; 80061; 80178; 84439; 84443

== ENCOUNTER 2017-12-12 17:15 | Emergency (ER) | payer OTHER ==
[2017-12-12] MEDS ORDERED: METOCLOPRAMIDE 5 MG/ML 2 ML VIAL IVP STA (17:37)
[2017-12-12] MEDS ORDERED: SODIUM CHLORIDE 0.9% 1,000 ML IV STA ×2 (17:37)
[2017-12-12] MEDS ORDERED: KETOROLAC 30 MG/ML 1 ML VIAL IVP STA (17:37)
[2017-12-12] MEDS ORDERED: diphenhydrAMINE 50 MG/ML 1 ML VIAL IVP STA (17:37)
[2017-12-12] MEDS ORDERED: ORPHENADRINE 30 MG/ML 2 ML VIAL IVP STA (17:38)
--- NOTE | 2017-12-12 17:40 | ED ---
General Adult HPI - General Chief complaint: Headache Stated complaint: migraine Time Seen by Provider: 12/12/17 17:24 Source: patient, RN notes reviewed, old records reviewed Mode of arrival: ambulatory Limitations: no limitations - History of Present Illness Initial comments: 32-year-old female presents emergency Department chief complaint of migraine headache. Patient reports that she's had a headache for 2 days. She states is similar to previous migraines. She states she's been taking her Imitrex and [id number] medication with no relief. Patient wishes episodes of vomiting. She states this is similar to her previous migraine she states it starts on the left side of her head and radiates her back of her head. Patient states she has no fever or chills, chest pain, shortness of breath, nausea, vomiting or visual changes. - Related Data Home Medications Medication Instructions Recorded Confirmed Albuterol Inhaler [Ventolin Hfa 2 puff INHALATION RT-QID PRN 09/11/15 12/12/17 Inhaler] Montelukast [Singulair] 10 mg PO DAILY 09/11/15 12/12/17 Ondansetron Odt [Zofran ODT] 4 mg PO Q8HR PRN 07/01/16 12/12/17 SUMAtriptan SUCCINATE [Imitrex] 50 mg PO BID PRN 07/01/16 12/12/17 Topiramate [Topamax] 100 mg PO BID 03/03/17 12/12/17 [place] Carbonate 300 mg PO QAM 06/15/17 12/12/17 [place] Carbonate 600 mg PO HS 06/15/17 12/12/17 Albuterol Nebulized [Ventolin 2.5 mg INHALATION RT-Q6H PRN 12/12/17 12/12/17 Nebulized] Topiramate [Topamax] 50 mg PO BID 12/12/17 12/12/17 Previous Rx's Medication Instructions Recorded Famotidine [Pepcid] 20 mg PO BID #30 tablet 08/15/17 Melatonin 5 mg PO HS #30 tablet 08/15/17 buPROPion XL [Wellbutrin XL] 150 mg PO DAILY #30 tab.er.24h 08/15/17 Allergies Allergy/AdvReac Type Severity Reaction Status Date / Time lamotrigine [From Lamictal] Allergy Rash/Hives Verified 12/12/17 17:31 quetiapine fumarate AdvReac Unknown Tremors/Maxx Verified 12/12/17 17:31 [From Seroquel] liam divalproex sodium AdvReac Weight Gain Verified 12/12/17 17:31 [From Depakote] Review of Systems ROS Statement: Those systems with pertinent positive or pertinent negative responses have been documented in the HPI. ROS Other: All systems not noted in ROS Statement are negative. Past Medical History Past Medical History: Asthma, Fibromyalgia, Musculoskeletal Disorder Additional Past Medical History / Comment(s): Anxiety, depression, chronic back pain. degenerative disc disease, migraines, IBS History of Any Multi-Drug Resistant Organisms: None Reported Past Surgical History: Hysterectomy Additional Past Surgical History / Comment(s): PREVIOUS EPIDURAL PAIN INJECTIONS , Dental surgery involving complete tooth removal Past Anesthesia/Blood Transfusion Reactions: No Reported Reaction Past Psychological History: Anxiety, Bipolar, Depression, PTSD Smoking Status: Former smoker Past Alcohol Use History: None Reported Past Drug Use History: None Reported - Past Family History Mother Family Medical History: No Reported History Father Family Medical History: Cancer, Congestive Heart Failure (CHF), COPD, Diabetes Mellitus, Hypertension Additional Family Medical History / Comment(s): throat , mouth and lung CA. triple bypass. stents., Sister(s) Family Medical History: Cancer, Hyperlipidemia Additional Family Medical History / Comment(s): breast General Exam - General Exam Comments Initial Comments: 32-year-old female. No distress. Limitations: no limitations General appearance: alert, in no apparent distress Head exam: Present: atraumatic, normocephalic, normal inspection Eye exam: Present: normal appearance, PERRL, EOMI. Absent: scleral icterus, conjunctival injection, periorbital swelling ENT exam: Present: normal exam, mucous membranes moist Neck exam: Present: normal inspection. Absent: tenderness, meningismus, lymphadenopathy Respiratory exam: Present: normal lung sounds bilaterally. Absent: respiratory distress, wheezes, rales, rhonchi, stridor Cardiovascular Exam: Present: regular rate, normal rhythm, normal heart sounds. Absent: systolic murmur, diastolic murmur, rubs, gallop, clicks GI/Abdominal exam: Present: soft, normal bowel sounds. Absent: distended, tenderness, guarding, rebound, rigid Extremities exam: Present: normal inspection, full ROM, normal capillary refill. Absent: tenderness, pedal edema, joint swelling, calf tenderness Back exam: Present: normal inspection Neurological exam: Present: alert, oriented X3, CN II-XII intact Expanded Patient oriented to: Present: person, place, time Speech: Present: fluid speech Cranial nerves: EOM's Intact: Normal Cerebellar function: Finger to Nose: Normal Upper motor neuron: Pronator Drift: Normal Sensory exam: Upper Extremity Light Touch: Normal, Lower Extremity Light Touch: Normal Motor strength exam: RUE: 5, LUE: 5, RLE: 5, LLE: 5 Eye Response: (4) open spontaneously Motor Response: (6) obeys commands Verbal Response: (5) oriented [place] Total: 15 Psychiatric exam: Present: normal affect, normal mood Skin exam: Present: warm, dry, intact, normal color. Absent: rash Course Vital Signs 12/12/17 12/12/17 17:20 19:34 Temperature 98.3 F 97.2 F L Pulse Rate 72 62 Respiratory 20 18 Rate Blood Pressure 136/81 112/67 O2 Sat by Pulse 100 Oximetry - Reevaluation(s) Reevaluation #1: 12/12/17 19:10 Patient is reevaluated reports her headache is now down to 6 out of 10. Medical Decision Making - Medical Decision Making 32-year-old female chief complaint migraine headache for 2 days. Patient was given migraine cocktail and IV fluids. She's had thoughts of vomiting. This time she reports she feels somewhat better after receiving these medications because of his somewhat obtain anxious. Patient was given 0.5 mg Ativan. Patient has no neuro deficits. No other concerning symptoms symptoms. I discussed she should also with her primary care provider due to the frequency of her migraines. All questions were answered and return parameters were discussed. Disposition Clinical Impression: Migraine Disposition: HOME SELF-CARE Condition: Good Instructions: Acute Headache (ED) Additional Instructions: Patient advised to rest, increase her fluid intake. Take Benadryl, and you're Imitrex medication as prescribed. Follow-up with primary care provider. Return to emergency department if any alarming signs or symptoms occur. Referrals: Fredis Palacio MD [Primary Care Provider] - 1-2 days Time of Disposition: 19:13
[2017-12-12] MEDS ORDERED: LORazepam 2 MG/ML INJ IV STA (19:09)
[2017-12-12] MEDS ORDERED: ACETAMINOPHEN TAB 500 MG TAB PO STA (19:09)
[2017-12-12 19:35] VITALS: BP 112/67; PULSE 62; RESP 18; TEMP 97.2
== END 2017-12-12 19:39 | disposition home or self-care (01) ==
LOC: EC 17:15
DX: G43.909 Migraine, unspecified, not intractable, without status migrainosus (principal); J45.909 Unspecified asthma, uncomplicated; Z87.891 Personal history of nicotine dependence; Z79.899 Other long term (current) drug therapy; Z88.8 Allergy status to other drugs, medicaments and biological substances
CPT/HCPCS: 99283 ×2; 96374 ×2; 96375 ×5; 96361 ×2; J2060; J1200; J2360; J2765; J1885

== ENCOUNTER 2018-06-13 11:06 | Emergency (ER) | payer OTHER ==
[2018-06-13 11:18] VITALS: RESP 18
[2018-06-13] MEDS ORDERED: ACETAMINOPHEN IV (For NPO) 1,000 MG in EMPTY BAG 1 BAG IVPB ONE (11:52)
[2018-06-13] MEDS ORDERED: SODIUM CHLORIDE 0.9% 1,000 ML IV STA (11:52)
[2018-06-13] MEDS ORDERED: METOCLOPRAMIDE 5 MG/ML 2 ML VIAL IVP STA (12:01)
[2018-06-13] MEDS ORDERED: DEXAMETHASONE SOD PHOSPHATE 10 MG/ML 1 ML VIAL IV STA (12:02)
--- NOTE | 2018-06-13 12:06 | ED ---
General Adult HPI - General Chief complaint: Headache Stated complaint: Headache Source: patient Mode of arrival: ambulatory Limitations: no limitations - History of Present Illness Initial comments: Dictation was produced using [employer] dictation software. please excuse any grammatical, word or spelling errors. Chief Complaint: 32-year-old female past medical history of psychiatric disease presents with persistent headache for several months. History of Present Illness: 32-year-old female who reports that she has past medical history of migraines presents with headache since yesterday. Patient states she's being managed by her primary care physician for outpatient evaluation of headache. She states that her headaches located to the left parietal region. It is stabbing in nature. She did see states that it's exacerbated with sound. Denies any neurologic deficit. No ataxia. No nausea vomiting. Denies any constitutional symptoms. The ROS documented in this emergency department record has been reviewed and confirmed by me. Those systems with pertinent positive or negative responses have been documented in the HPI. All other systems are other negative and/or noncontributory. - Related Data Home Medications Medication Instructions Recorded Confirmed Albuterol Inhaler [Ventolin Hfa 2 puff INHALATION RT-QID PRN 09/11/15 12/12/17 Inhaler] Montelukast [Singulair] 10 mg PO DAILY 09/11/15 12/12/17 Ondansetron Odt [Zofran ODT] 4 mg PO Q8HR PRN 07/01/16 12/12/17 SUMAtriptan SUCCINATE [Imitrex] 50 mg PO BID PRN 07/01/16 12/12/17 Topiramate [Topamax] 100 mg PO BID 03/03/17 12/12/17 [place] Carbonate 300 mg PO QAM 06/15/17 12/12/17 Sunflower Carbonate 600 mg PO HS 06/15/17 12/12/17 Albuterol Nebulized [Ventolin 2.5 mg INHALATION RT-Q6H PRN 12/12/17 12/12/17 Nebulized] Topiramate [Topamax] 50 mg PO BID 12/12/17 12/12/17 Previous Rx's Medication Instructions Recorded Famotidine [Pepcid] 20 mg PO BID #30 tablet 08/15/17 Melatonin 5 mg PO HS #30 tablet 10/31/17 buPROPion XL [Wellbutrin XL] 150 mg PO DAILY #30 tab.er.24h 08/15/17 Allergies Allergy/AdvReac Type Severity Reaction Status Date / Time lamotrigine [From Lamictal] Allergy Rash/Hives Verified 12/12/17 17:31 Penicillins Allergy Unknown Verified 06/13/18 11:18 Childhood quetiapine fumarate AdvReac Unknown Tremors/Maxx Verified 12/12/17 17:31 [From Seroquel] liam divalproex sodium AdvReac Weight Gain Verified 12/12/17 17:31 [From Depakote] Review of Systems ROS Statement: Those systems with pertinent positive or pertinent negative responses have been documented in the HPI. ROS Other: All systems not noted in ROS Statement are negative. Past Medical History Past Medical History: Asthma, Fibromyalgia, Musculoskeletal Disorder Additional Past Medical History / Comment(s): Anxiety, depression, chronic back pain. degenerative disc disease, migraines, IBS History of Any Multi-Drug Resistant Organisms: None Reported Past Surgical History: Hysterectomy Additional Past Surgical History / Comment(s): PREVIOUS EPIDURAL PAIN INJECTIONS , Dental surgery involving complete tooth removal Past Anesthesia/Blood Transfusion Reactions: No Reported Reaction Past Psychological History: Anxiety, Bipolar, Depression, PTSD Smoking Status: Former smoker Past Alcohol Use History: None Reported Past Drug Use History: None Reported - Past Family History Mother Family Medical History: No Reported History Father Family Medical History: Cancer, Congestive Heart Failure (CHF), COPD, Diabetes Mellitus, Hypertension Additional Family Medical History / Comment(s): throat , mouth and lung CA. triple bypass. stents., Sister(s) Family Medical History: Cancer, Hyperlipidemia Additional Family Medical History / Comment(s): breast General Exam - General Exam Comments Initial Comments: PHYSICAL EXAM: General Impression: Alert and oriented x3, not in acute distress HEENT: Normocephalic atraumatic, extra-ocular movements intact, pupils equal and reactive to light bilaterally, mucous membranes moist. Cardiovascular: Heart regular rate and rhythm, S1&S2 audible, no murmurs, rubs or gallops Chest: Lungs clear to auscultation bilaterally, no rhonchi, no wheeze, no rales Abdomen: Bowel sounds present, abdomen soft, non-tender, non-distended, no organomegaly Musculoskeletal: Pulses present and equal in all extremities, no peripheral edema Motor: Power 5/5 bilaterally, no focal deficits noted Neurological: CN II-XII grossly intact, no focal motor or sensory deficits noted Skin: Intact with no visualized rashes Psych: Normal affect and mood Limitations: no limitations Course Vital Signs 06/13/18 11:16 Temperature 98.5 F Pulse Rate 69 Respiratory 18 Rate Blood Pressure 129/81 O2 Sat by Pulse 95 Oximetry Medical Decision Making - Medical Decision Making ED course: 32-year-old female presents with headache. Vital signs upon arrival are within acceptable limits. Neurologic exam is negative. Patient has a outpatient CT and MRI pending that will be scheduled in the next month. She reports changes seen high man who did funduscopic exam and she was told that her optic disks appear normal. Computed tomography scan was obtained showing no acute processes. Patient given headache cocktail. Reevaluation of symptoms shows improvement. She is advised to follow-up with her outpatient physicians for outpatient evaluation and treatment of headaches. Patient is understandable and agreeable to plan. - Lab Data Lab Results 06/13/18 Range/Units 12:17 Urine HCG, Qual Not Detected (Not Detectd) Disposition Clinical Impression: Headache Disposition: HOME SELF-CARE Condition: Good Instructions: Acute Headache (ED) Is patient prescribed a controlled substance at d/c from ED?: No Referrals: Fredis Palacio MD [Primary Care Provider] - 1-2 days Time of Disposition: 13:33 Decision Time: 13:34
--- NOTE | 2018-06-13 13:21 | CT ---
EXAMINATION TYPE: CT brain wo con DATE OF EXAM: 06/13/2018 COMPARISON: None HISTORY: Headache CT DLP: [address] of the brain was performed. The ventricles, basal cisterns and sulci overlying the cerebral convexities demonstrate a normal appe arance. There is no evidence for intracranial hemorrhage or sulcal effacement. No mass effects are seen. Osseous calvarium is intact. If symptoms persist consider MRI as clinically warranted. IMPRESSION: 1. No acute intracranial process is seen at this time.
[2018-06-13 13:54] VITALS: BP 108/66; PULSE 61; TEMP 98.1
== END 2018-06-13 13:55 | disposition home or self-care (01) ==
LOC: EC 11:06
DX: G43.909 Migraine, unspecified, not intractable, without status migrainosus (principal); J45.909 Unspecified asthma, uncomplicated; M79.7 Fibromyalgia; F41.9 Anxiety disorder, unspecified; F31.9 Bipolar disorder, unspecified; F43.10 Post-traumatic stress disorder, unspecified; Z87.891 Personal history of nicotine dependence; Z79.899 Other long term (current) drug therapy; Z88.0 Allergy status to penicillin; Z88.8 Allergy status to other drugs, medicaments and biological substances
CPT/HCPCS: 81025; 70450; 99284; 96374; 96375 ×2; 96361; J1100; J2765; J0131

== ENCOUNTER → 2018-06-15 | Outpatient (CLI) | payer OTHER ==
[2018-06-15 12:00] LABS: Basophils # (A) 0.1 k/uL (0-0.2); Basophils % (A) 1 %; Eosinophils # (A) 0.2 k/uL (0-0.7); Eosinophils % (A) 2 %; HCT 39.5 % (34.0-46.0); HGB 12.5 gm/dL (11.4-16.0); Lymphocytes # (A) 2.8 k/uL (1.0-4.8); Lymphocytes % (A) 23 %; MCH 29.7 pg (25.0-35.0); MCHC 31.7 g/dL (31.0-37.0); MCV 93.6 fL (80.0-100.0); Mean Platelet Volume 7.2; Monocytes # (A) 0.5 k/uL (0-1.0); Monocytes % (A) 4 %; Neutrophils # (A) 8.3 k/uL (1.3-7.7); Neutrophils % (A) 69 %; Platelet Count 380 k/uL (150-450); RBC 4.22 m/uL (3.80-5.40); RDW 12.7 % (11.5-15.5)
[2018-06-15 12:48] LABS: ALT 23 U/L (9-52); AST 15 U/L (14-36); Albumin 3.8 g/dL (3.5-5.0); Alkaline Phosphatase 87 U/L (38-126); Anion Gap 9 mmol/L; Blood Urea Nitrogen 4 mg/dL (7-17); Calcium 9.3 mg/dL (8.4-10.2); Carbon Dioxide 23 mmol/L (22-30); Chloride 107 mmol/L (98-107); Glucose 71 mg/dL (74-99); Potassium 3.2 mmol/L (3.5-5.1); Sodium 139 mmol/L (137-145); Total Bilirubin 0.5 mg/dL (0.2-1.3); Total Protein 6.6 g/dL (6.3-8.2)
[2018-06-15 13:02] LABS: T4, Free (Free Thyroxine) 1.12 ng/dL (0.78-2.19)
[2018-06-15 13:32] LABS: Erythrocyte Sedimentation Rate 13 mm/hr (0-20)
[2018-06-15 19:27] LABS: Vitamin D 25 Hydroxy 19.3 ng/mL (30.0-100.0)
--- NOTE | 2018-06-15 21:38 | MR ---
EXAMINATION TYPE: MR brain wo con DATE OF EXAM: 06/15/2018 COMPARISON: 02/23/2015 HISTORY: Migraines T1-weighted sagittal, T2, FLAIR, and diffusion axial, and T2 coronal coronal views of the brain are s ubmitted. There is no evidence of acute ischemia. The ventricles, basal cisterns, and sulci overlying the conv exities are consistent with the patient's age. There is no mass effect. Craniocervical junction maintained. Sella turcica has a normal appearance. No cerebellopontine angle mass. Nasal septal deviation noted. Changes of mild chronic sinusitis noted . White matter: No abnormal signal is seen within the visualized white matter. IMPRESSION: 1. No acute intracranial process. 2. Mild chronic sinusitis.
== END | disposition home or self-care (01) ==
LOC: RADMRIMAIN 11:35
PROVIDERS: ATTEND Family Medicine
DX: G43.809 Other migraine, not intractable, without status migrainosus (principal); Z00.00 Encounter for general adult medical examination without abnormal findings
CPT/HCPCS: 36415; 70551; 80053; 82306; 82607; 84439; 84443; 85025; 85652

== ENCOUNTER → 2018-11-22 | Outpatient (CLI) | payer BC, OTHER ==
--- NOTE | 2018-11-22 23:25 | CT ---
EXAMINATION TYPE: CT sinus wo con DATE OF EXAM: 11/22/2018 COMPARISON: CT brain June 13, 2018. CT Sinuses February 22, 2016. HISTORY: Chronic Sinusitis per order. Headaches, facial pain, double vision, and dizziness for 3 to [address] DLP: 636.4 mGycm. Automated Exposure Control for Dose Reduction was Utilized. TECHNIQUE: CT scan of the sinuses is performed without contrast, axial images are obtained, coronal r eformatted images are also reviewed. FINDINGS: The paranasal sinuses including the frontal, ethmoid, sphenoid, and maxillary sinuses bila terally are well-aerated without abnormal opacification. The ostiomeatal complex is patent bilateral ly on the coronal images. Nasal septum is minimally deviated to right of midline, not significantly c hanged from prior study. Visualized portion of mastoid air cells show no abnormal opacification. The globes are intact bilate rally. Visualized portion of brain parenchyma is unremarkable. IMPRESSION: No significant acute or chronic paranasal sinus disease. No significant change from prio r CT.
== END | disposition home or self-care (01) ==
LOC: RADCTMAIN 16:24
PROVIDERS: ATTEND Otolaryngology
DX: J32.9 Chronic sinusitis, unspecified (principal)
CPT/HCPCS: 70486

== ENCOUNTER → 2018-12-17 | Outpatient (CLI) | payer BC, OTHER ==
--- NOTE | 2018-12-17 11:09 | MM ---
Reason for exam: additional evaluation requested from prior study. Last mammogram was performed 3 years and 8 months ago. History: Family history of breast cancer in sister at age 22. Took hormonal contraceptives for 5 years beginning at age 11. Physical Findings: Nurse did not find any significant physical abnormalities on exam. MG 3D Diag Mammo W/Cad BRAYAN Bilateral CC and MLO view(s) were taken. ML and XCCL view(s) were taken of the left breast. Prior study comparison: April 06, 2015, bilateral MG diagnostic mammo w CAD BRAYAN. The breast tissue is extremely dense which could obscure a lesion on mammography. No suspicious abnormality. These results were verbally communicated with the patient and result sheet given to the patient on 12/17/18. ASSESSMENT: Incomplete: need additional imaging evaluation, BI-RAD 0 RECOMMENDATION: Ultrasound of the left breast. (area of pain)
--- NOTE | 2018-12-17 11:10 | USB ---
Reason for exam: additional evaluation requested from abnormal screening. History: Family history of breast cancer in sister at age 22. Took hormonal contraceptives for 5 years beginning at age 11. US Breast Limited LT Left limited breast ultrasound including focal area of concern, retroareolar and axilla demonstrates no cystic or solid lesion seen. [place] of dense tissue. No suspicious sonographic abnormality. These results were verbally communicated with the patient and result sheet given to the patient on 12/17/18. ASSESSMENT: Negative, BI-RAD 1 RECOMMENDATION: Routine screening mammogram of both breasts in 1 year.
== END | disposition home or self-care (01) ==
LOC: RADMAMWWP 08:29
PROVIDERS: ATTEND Family Medicine
DX: R92.8 Other abnormal and inconclusive findings on diagnostic imaging of breast (principal); N64.4 Mastodynia; Z80.3 Family history of malignant neoplasm of breast
CPT/HCPCS: 77062; 77066

== ENCOUNTER 2019-01-01 04:59 | Emergency (ER) | payer BC, OTHER ==
--- NOTE | 2019-01-01 05:52 | XR ---
EXAM: XR Chest, 1 View CLINICAL HISTORY: Pain TECHNIQUE: Frontal view of the chest. COMPARISON: CXR dated 04/09/16 FINDINGS: Lungs: Unremarkable. No consolidation. Pleural space: Unremarkable. No pneumothorax. Heart: Unremarkable. No cardiomegaly. Mediastinum: Unremarkable. Bones/joints: Unremarkable. IMPRESSION: Normal chest x-ray.
--- NOTE | 2019-01-01 06:38 | ED ---
URI HPI - General Chief Complaint: Upper Respiratory Infection Stated Complaint: JULIET, nausea Time Seen by Provider: 01/01/19 05:22 Source: patient Mode of arrival: ambulatory Limitations: no limitations - History of Present Illness MD Complaint: fever, cough, sore throat, nasal congestion Onset/Timin -: days(s) Severity: moderate Consistency: constant Improves With: nothing Worsens With: nothing Associated Symptoms: fever, headache, rhinorrhea, cough - Related Data Home Medications Medication Instructions Recorded Confirmed Albuterol Inhaler [Ventolin Hfa 2 puff INHALATION RT-QID PRN 09/11/15 01/01/19 Inhaler] Montelukast [Singulair] 10 mg PO DAILY 09/11/15 01/01/19 Ondansetron Odt [Zofran ODT] 4 mg PO Q8HR PRN 07/01/16 01/01/19 SUMAtriptan SUCCINATE [Imitrex] 50 mg PO BID PRN 07/01/16 01/01/19 Topiramate [Topamax] 100 mg PO BID 03/03/17 01/01/19 [place] Carbonate 300 mg PO QAM 06/15/17 01/01/19 [place] Carbonate 600 mg PO HS 06/15/17 01/01/19 Albuterol Nebulized [Ventolin 2.5 mg INHALATION RT-Q6H PRN 12/12/17 01/01/19 Nebulized] Topiramate [Topamax] 50 mg PO BID 12/12/17 01/01/19 Previous Rx's Medication Instructions Recorded Famotidine [Pepcid] 20 mg PO BID #30 tablet 08/15/17 Melatonin 5 mg PO HS #30 tablet 08/15/17 buPROPion XL [Wellbutrin XL] 150 mg PO DAILY #30 tab.er.24h 08/15/17 Ondansetron Odt [Zofran ODT] 4 mg PO Q8HR PRN #10 tab 01/01/19 Allergies Allergy/AdvReac Type Severity Reaction Status Date / Time lamotrigine [From Lamictal] Allergy Rash/Hives Verified 12/12/17 17:31 Penicillins Allergy Unknown Verified 06/13/18 11:18 Childhood quetiapine fumarate AdvReac Unknown Tremors/Maxx Verified 12/12/17 17:31 [From Seroquel] liam divalproex sodium AdvReac Weight Gain Verified 12/12/17 17:31 [From Depakote] Review of Systems ROS Statement: Those systems with pertinent positive or pertinent negative responses have been documented in the HPI. ROS Other: All systems not noted in ROS Statement are negative. Constitutional: Reports: fever, chills ENT: Reports: throat pain, congestion Respiratory: Reports: cough. Denies: dyspnea Cardiovascular: Denies: chest pain, edema Gastrointestinal: Denies: abdominal pain, nausea, vomiting Genitourinary: Denies: urgency, dysuria Musculoskeletal: Denies: back pain Skin: Denies: rash Neurological: Denies: as per HPI, weakness Past Medical History Past Medical History: Asthma, Fibromyalgia, Musculoskeletal Disorder Additional Past Medical History / Comment(s): Anxiety, depression, chronic back pain. degenerative disc disease, migraines, IBS History of Any Multi-Drug Resistant Organisms: None Reported Past Surgical History: Hysterectomy Additional Past Surgical History / Comment(s): PREVIOUS EPIDURAL PAIN INJECTIONS, Dental surgery involving complete tooth removal Past Anesthesia/Blood Transfusion Reactions: No Reported Reaction Past Psychological History: Anxiety, Bipolar, Depression, PTSD Smoking Status: Former smoker Past Alcohol Use History: None Reported Past Drug Use History: None Reported - Past Family History Mother Family Medical History: No Reported History Father Family Medical History: Cancer, Congestive Heart Failure (CHF), COPD, Diabetes Mellitus, Hypertension Additional Family Medical History / Comment(s): throat , mouth and lung CA. triple bypass. stents., Sister(s) Family Medical History: Cancer, Hyperlipidemia Additional Family Medical History / Comment(s): breast General Exam Limitations: no limitations General appearance: alert, in no apparent distress Head exam: Present: atraumatic, normocephalic Eye exam: Present: normal appearance. Absent: scleral icterus, conjunctival injection ENT exam: Present: mucous membranes moist, TM's normal bilaterally, normal external ear exam Neck exam: Present: normal inspection, full ROM, lymphadenopathy. Absent: tenderness, meningismus Respiratory exam: Present: normal lung sounds bilaterally. Absent: respiratory distress, wheezes, rales, rhonchi, stridor Cardiovascular Exam: Present: regular rate, normal rhythm, normal heart sounds. Absent: systolic murmur, diastolic murmur, rubs, gallop GI/Abdominal exam: Present: soft. Absent: distended, tenderness, guarding, rebound, rigid Back exam: Present: normal inspection Neurological exam: Present: alert Skin exam: Present: warm, dry, intact, normal color. Absent: rash Course Vital Signs 01/01/19 01/01/19 05:12 07:17 Temperature 99.5 F 97.7 F Pulse Rate 108 H 78 Respiratory 22 20 Rate Blood Pressure 120/76 139/79 O2 Sat by Pulse 100 97 Oximetry Medical Decision Making - Lab Data Lab Results 01/01/19 Range/Units 05:24 Influenza Type A RNA Detected H (Not Detectd) Influenza Type B (PCR) Not Detected (Not Detectd) Disposition Clinical Impression: Influenza A Disposition: HOME SELF-CARE Condition: Fair Instructions (If sedation given, give patient instructions): Influenza (DC) Prescriptions: Ondansetron Odt [Zofran ODT] 4 mg PO Q8HR PRN #10 tab PRN Reason: Nausea Is patient prescribed a controlled substance at d/c from ED?: No Referrals: Bernice Veronica MD [Primary Care Provider] - 1-2 days
[2019-01-01] MEDS ORDERED: ONDANSETRON ODT 4 MG TAB PO STA (06:51)
[2019-01-01] MEDS ORDERED: IBUPROFEN 600 MG TAB PO STA (06:51)
[2019-01-01 07:18] VITALS: BP 139/79; PULSE 78; RESP 20; TEMP 97.7
== END 2019-01-01 07:18 | disposition home or self-care (01) ==
LOC: EC 04:59
DX: J10.1 Influenza due to other identified influenza virus with other respiratory manifestations (principal); J45.909 Unspecified asthma, uncomplicated; M79.7 Fibromyalgia; Z87.891 Personal history of nicotine dependence; Z79.899 Other long term (current) drug therapy; Z88.0 Allergy status to penicillin; Z88.8 Allergy status to other drugs, medicaments and biological substances
CPT/HCPCS: 71045; 87502; 99285

== ENCOUNTER → 2019-01-15 | Outpatient (CLI) | payer BC ==
[2019-01-16 01:29] LABS: Vitamin D 25 Hydroxy 31.8 ng/mL (30.0-100.0)
[2019-01-16 03:08] LABS: Creatine Kinase 50 U/L (26-186)
[2019-01-16 04:27] LABS: C Reactive Protein <0.4 mg/dL (0.0-0.8)
== END | disposition home or self-care (01) ==
LOC: LABWHC1 15:23
PROVIDERS: ATTEND Psychiatry & Neurology Neurology
DX: R51 Headache (principal); M54.2 Cervicalgia; M79.7 Fibromyalgia
CPT/HCPCS: 36415; 82306; 82550; 82607; 82747; 84439; 84443; 85652; 86038; 86140; 86618

== ENCOUNTER 2019-06-22 02:08 | Emergency (ER) | payer BC ==
[2019-06-22 02:20] VITALS: PULSE 85; RESP 15; TEMP 98.2
[2019-06-22] MEDS ORDERED: METOCLOPRAMIDE 5 MG/ML 2 ML VIAL IVP STA (02:35)
[2019-06-22] MEDS ORDERED: diphenhydrAMINE 50 MG/ML 1 ML VIAL IVP STA (02:35)
[2019-06-22] MEDS ORDERED: SODIUM CHLORIDE 0.9% 500 ML 500 ML IV STA (02:35)
[2019-06-22] MEDS ORDERED: KETOROLAC 30 MG/ML 1 ML VIAL IVP STA (02:35)
[2019-06-22] MEDS: SUMAtriptan SUCCINATE 6 MG/0.5 ML VIAL SQ STA ×2 (03:53→04:05)
--- NOTE | 2019-06-22 04:43 | ED ---
Headache HPI - General Chief Complaint: Headache Stated Complaint: Headache, vomiting Time Seen by Provider: 06/22/19 02:10 Limitations: no limitations - History of Present Illness Initial Comments: This patient is a 33-year-old woman presenting with what she is referring to as a migraine. She does have history of similar headaches. I had started in the morning and gradually got worse. She was not having relief from home medications. She is not having any unusual symptoms with this one and it is not the worst headache of life. No fever or chills. No neurologic symptoms. MD Complaint: "migraine" Onset/Timin -: hour(s) Onset Description: gradual Location: frontal Severity: severe Quality: aching, constant, similar to previous headaches Consistency: constant Improves With: nothing Worsens With: light, noise Context: occurred at rest Associated Symptoms: nausea - Related Data Home Medications Medication Instructions Recorded Confirmed Albuterol Inhaler [Ventolin Hfa 2 puff INHALATION RT-QID PRN 09/11/15 01/01/19 Inhaler] Montelukast [Singulair] 10 mg PO DAILY 09/11/15 01/01/19 Ondansetron Odt [Zofran ODT] 4 mg PO Q8HR PRN 07/01/16 01/01/19 SUMAtriptan SUCCINATE [Imitrex] 50 mg PO BID PRN 07/01/16 01/01/19 Topiramate [Topamax] 100 mg PO BID 03/03/17 01/01/19 [place] Carbonate 300 mg PO QAM 06/15/17 01/01/19 [place] Carbonate 600 mg PO HS 06/15/17 01/01/19 Albuterol Nebulized [Ventolin 2.5 mg INHALATION RT-Q6H PRN 12/12/17 01/01/19 Nebulized] Topiramate [Topamax] 50 mg PO BID 12/12/17 01/01/19 Previous Rx's Medication Instructions Recorded Famotidine [Pepcid] 20 mg PO BID #30 tablet 08/15/17 Melatonin 5 mg PO HS #30 tablet 08/15/17 buPROPion XL [Wellbutrin XL] 150 mg PO DAILY #30 tab.er.24h 08/15/17 Ondansetron Odt [Zofran ODT] 4 mg PO Q8HR PRN #10 tab 01/01/19 Allergies Allergy/AdvReac Type Severity Reaction Status Date / Time lamotrigine [From Lamictal] Allergy Rash/Hives Verified 06/22/19 02:20 Penicillins Allergy Unknown Verified 06/22/19 02:20 Childhood quetiapine fumarate AdvReac Unknown Tremors/Maxx Verified 06/22/19 02:20 [From Seroquel] liam divalproex sodium AdvReac Weight Gain Verified 06/22/19 02:20 [From Depakote] Review of Systems ROS Statement: Those systems with pertinent positive or pertinent negative responses have been documented in the HPI. ROS Other: All systems not noted in ROS Statement are negative. Constitutional: Denies: fever, chills Eyes: Denies: eye pain, vision change ENT: Denies: congestion Respiratory: Denies: cough, dyspnea Cardiovascular: Denies: chest pain, syncope Gastrointestinal: Reports: nausea, vomiting. Denies: abdominal pain Genitourinary: Denies: dysuria, abnormal menses Musculoskeletal: Denies: back pain Skin: Denies: rash Neurological: Reports: headache. Denies: weakness, numbness, paresthesias, confusion Past Medical History Past Medical History: Asthma, Fibromyalgia, Musculoskeletal Disorder Additional Past Medical History / Comment(s): Anxiety, depression, chronic back pain. degenerative disc disease, migraines, IBS History of Any Multi-Drug Resistant Organisms: None Reported Past Surgical History: Hysterectomy Additional Past Surgical History / Comment(s): PREVIOUS EPIDURAL PAIN INJECTIONS, Dental surgery involving complete tooth removal Past Anesthesia/Blood Transfusion Reactions: No Reported Reaction Past Psychological History: Anxiety, Bipolar, Depression, PTSD Smoking Status: Former smoker Past Alcohol Use History: None Reported Past Drug Use History: None Reported - Past Family History Mother Family Medical History: No Reported History Father Family Medical History: Cancer, Congestive Heart Failure (CHF), COPD, Diabetes Mellitus, Hypertension Additional Family Medical History / Comment(s): throat , mouth and lung CA. triple bypass. stents., Sister(s) Family Medical History: Cancer, Hyperlipidemia Additional Family Medical History / Comment(s): breast General Exam Limitations: no limitations General appearance: alert, in no apparent distress Head exam: Present: atraumatic, normocephalic Eye exam: Present: normal appearance, PERRL, EOMI. Absent: scleral icterus, conjunctival injection ENT exam: Present: normal oropharynx, TM's normal bilaterally Neck exam: Present: normal inspection, full ROM. Absent: tenderness, meningismus Neurological exam: Present: alert, oriented X3, CN II-XII intact. Absent: motor sensory deficit Skin exam: Present: warm, dry, intact, normal color. Absent: rash Course Vital Signs 06/22/19 02:17 Temperature 98.2 F Pulse Rate 85 Respiratory 15 Rate O2 Sat by Pulse 99 Oximetry Disposition Clinical Impression: Migraine Disposition: HOME SELF-CARE Condition: Good Instructions (If sedation given, give patient instructions): Acute Headache (ED) Is patient prescribed a controlled substance at d/c from ED?: No Referrals: Bernice Veronica MD [Primary Care Provider] - 1-2 days
== END 2019-06-22 05:23 | disposition home or self-care (01) ==
LOC: EC 02:08
DX: G43.909 Migraine, unspecified, not intractable, without status migrainosus (principal); J45.909 Unspecified asthma, uncomplicated; M79.7 Fibromyalgia; Z79.899 Other long term (current) drug therapy; Z88.0 Allergy status to penicillin; Z88.8 Allergy status to other drugs, medicaments and biological substances; Z87.891 Personal history of nicotine dependence
CPT/HCPCS: 99283; 96374; 96375 ×2; 96361 ×2; 96372; J3030; J1200; J2765; J1885

== ENCOUNTER → 2019-09-10 | Outpatient (CLI) | payer BC ==
[2019-09-10 16:20] LABS: DNA Double-Stranded NEGATIVE (NEGATIVE)
[2019-09-10 17:14] LABS: Protein, Total 6.9 g/dL (6.2-8.2)
[2019-09-10 17:42] LABS: C Reactive Protein 1.5 mg/dL (0.0-0.8); Creatine Kinase 64 U/L (26-186); Rheumatoid Factor, Qnt <4 IU/mL (0-13)
[2019-09-11 11:33] LABS: ANA Pattern Homogeneous
[2019-09-11 13:09] LABS: Albumin 3.62 g/dL (3.80-4.90); Gamma Globulin 1.07 g/dL (0.70-1.50)
== END | disposition home or self-care (01) ==
LOC: LABWHC1 11:07
PROVIDERS: ATTEND Psychiatry & Neurology Neurology
DX: E03.9 Hypothyroidism, unspecified (principal); M25.50 Pain in unspecified joint; R20.0 Anesthesia of skin; R20.2 Paresthesia of skin; M62.81 Muscle weakness (generalized)
CPT/HCPCS: 36415; 82306; 82550; 82607; 84165; 84439; 84443; 85652; 86038; 86039; 86140; 86225; 86431; 86618

== ENCOUNTER → 2019-11-28 | Outpatient (CLI) | payer BC ==
[2019-11-28 14:11] LABS: HCT 40.4 % (34.0-46.0); HGB 13.5 gm/dL (11.4-16.0); MCH 30.8 pg (25.0-35.0); MCHC 33.4 g/dL (31.0-37.0); MCV 92.2 fL (80.0-100.0); Mean Platelet Volume 7.4; Platelet Count 425 k/uL (150-450); RBC 4.38 m/uL (3.80-5.40); RDW 12.9 % (11.5-15.5); WBC 11.5 k/uL (3.8-10.6)
[2019-11-28 18:30] LABS: ALT 15 U/L (8-44); AST 21 U/L (13-35); African American GFR (CKD) 109.9 (60.0-200.0); Albumin/Globulin Ratio 1.75 (1.60-3.17); Alkaline Phosphatase 131 U/L (41-126); Bilirubin, Conjugated <0.20 mg/dL (0.20-0.40); Calcium 9.3 mg/dL (8.7-10.3); Carbon Dioxide 27.2 mmol/L (21.6-31.8); Chloride 104 mmol/L (96-109); Globulin 2.4 g/dL (1.6-3.3); Glucose 93 mg/dL (70-110); Lithium 0.9 mmol/L (0.5-1.2); Non-African American GFR(CKD) 94.8 (60.0-200.0); Potassium 3.8 mmol/L (3.5-5.5); Sodium 139 mmol/L (135-145); Total Bilirubin 0.2 mg/dL (0.3-1.2); Total Protein 6.6 g/dL (6.2-8.2)
== END | disposition home or self-care (01) ==
LOC: LABWHC1 13:36
PROVIDERS: ATTEND Clinical Nurse Specialist Psychiatric/Mental Health, Community
DX: F34.89 Other specified persistent mood disorders (principal); R53.82 Chronic fatigue, unspecified; Z79.899 Other long term (current) drug therapy
CPT/HCPCS: 36415; 80053; 80178; 82248; 84436; 84443; 84480; 85027

== ENCOUNTER → 2019-12-04 | Outpatient (CLI) | payer BC ==
--- NOTE | 2019-12-04 11:01 | XR ---
EXAMINATION TYPE: XR chest 2V DATE OF EXAM: 12/04/2019 COMPARISON: 01/01/2019 HISTORY: 34-year-old female with cough TECHNIQUE: Frontal and lateral views FINDINGS: The cardiomediastinal silhouette, aorta, and pulmonary vasculature are within normal limits. Lungs an d pleural spaces are clear. IMPRESSION: No acute cardiopulmonary process.
== END ==
LOC: RADXRMAIN 09:09
PROVIDERS: ATTEND Nurse Practitioner Family
DX: R05 Cough (principal); R07.1 Chest pain on breathing
CPT/HCPCS: 71046

== ENCOUNTER → 2020-04-15 | Outpatient (CLI) | payer BC ==
--- NOTE | 2020-04-16 11:26 | MM ---
Reason for exam: screening (asymptomatic). Last mammogram was performed 1 year and 4 months ago. History: Family history of breast cancer in sister at age 22. Took hormonal contraceptives for 5 years beginning at age 11. Physical Findings: A clinical breast exam by your physician is recommended on an annual basis and results should be correlated with mammographic findings. MG 3D Screening Mammo W/Cad Bilateral CC and MLO view(s) were taken. Prior study comparison: December 17, 2018, bilateral MG 3d diag mammo w/cad [facility]. April 06, 2015, bilateral MG diagnostic mammo w CAD [facility]. The breast tissue is heterogeneously dense. This may lower the sensitivity of mammography. There is no discrete abnormality. No significant changes when compared with prior studies. ASSESSMENT: Negative, BI-RAD 1 RECOMMENDATION: Routine screening mammogram of both breasts in 1 year.
== END | disposition home or self-care (01) ==
LOC: RADMAMWWP 10:54
PROVIDERS: ATTEND Family Medicine
DX: Z12.31 Encounter for screening mammogram for malignant neoplasm of breast (principal)
CPT/HCPCS: 77063; 77067

== ENCOUNTER → 2020-05-11 | Outpatient (CLI) | payer BC ==
--- NOTE | 2020-05-11 08:10 | US ---
EXAMINATION TYPE: US abdomen complete DATE OF EXAM: 05/11/2020 COMPARISON: NONE CLINICAL HISTORY: R10.10 Upper abdominal pain. Epigastric pain EXAM MEASUREMENTS: Liver Length: 16.9 cm Gallbladder Wall: 0.2 cm CBD: 0.3 cm Spleen: 9.7 cm Right Kidney: 10.6 x 3.6 x 4.7 cm Left Kidney: 10.7 x 4.7 x 4.7 cm Pancreas: duct = 0.4cm. Normal less than 0.2 cm. Liver: attenuating Gallbladder: no evidence of stones Evidence for sonographic Farias's sign: no CBD: appears wnl Spleen: wnl Right Kidney: no evidence of hydronephrosis Left Kidney: no evidence of hydronephrosis Upper IVC: wnl Abd Aorta: wnl IMPRESSION: 1. Hepatomegaly with mild fatty infiltration. 2. Prominence of the pancreatic duct. Consider dedicated CT to evaluate the pancreas and pancreatic d uct. MRI would be an alternative.
== END ==
LOC: RADUSWWP 07:23
PROVIDERS: ATTEND Family Medicine
DX: K76.0 Fatty (change of) liver, not elsewhere classified (principal); R16.0 Hepatomegaly, not elsewhere classified
CPT/HCPCS: 76700

== ENCOUNTER → 2020-06-11 | Outpatient (CLI) | payer BC ==
--- NOTE | 2020-06-11 10:14 | CT ---
EXAMINATION TYPE: CT abdomen w con DATE OF EXAM: 06/11/2020 HISTORY: Upper Abdominal pain with nausea CT DLP: 378.8mGycm Automated Exposure Control for Dose Reduction was Utilized. CONTRAST: CT scan of the abdomen is performed with IV Contrast, patient injected with 100 mL of Isovue 300. COMPARISON: CT abdomen and pelvis March 04, 2017 and older studies. Complete abdominal ultrasound one m onth earlier. FINDINGS: LUNG BASES: No significant abnormality is appreciated. LIVER/GB: Interval improvement in the overall marked low density of liver versus prior. Liver remains hypodense relative to the spleen. Size is stable. PANCREAS: Pancreas is normal in size. No suspicious pancreatic ductal dilatation seen. SPLEEN: No significant abnormality is seen. ADRENALS: No significant abnormality is seen. KIDNEYS: Symmetric cortical medullary uptake and excretion without hydronephrosis seen bilaterally.. BOWEL: Oral contrast reaches visualized portion of the proximal sigmoid colon. There is no suspicious small or large bowel dilatation. Terminal ileum noted within normal limits coronal image 30. LYMPH NODES: No greater than 1cm abdominal lymph nodes are appreciated. OSSEOUS STRUCTURES: Mild facet arthropathy lower lumbar levels. OTHER: Small fat-containing umbilical hernia redemonstrated. IMPRESSION: No significant new or acute finding is seen to account for patient's clinical symptoms. N o pancreatic ductal dilatation noted.
== END | disposition home or self-care (01) ==
LOC: RADCTMAIN 08:19
PROVIDERS: ATTEND Nurse Practitioner Family
DX: R10.10 Upper abdominal pain, unspecified (principal)
CPT/HCPCS: 74160; Q9967

== ENCOUNTER → 2025-05-16 | Outpatient (CLI) | payer BC ==
[2025-05-16 15:27] LABS: Basophils # (A) 0.05 X 10*3/uL (0.00-0.10); Basophils % (A) 0.6 %; Eosinophils # (A) 0.14 X 10*3/uL (0.04-0.35); Eosinophils % (A) 1.7 %; HCT 42.2 % (37.2-46.3); HGB 13.8 g/dL (12.0-15.0); Immature Grans, Automated 0.40 %; Lymphocytes # (A) 1.77 X 10*3/uL (0.90-5.00); Lymphocytes % (A) 21.5 %; MCH 29.4 pg (27.0-32.0); MCHC 32.7 g/dL (32.0-37.0); MCV 90.0 FL (80.0-97.0); Monocytes # (A) 0.57 X 10*3/uL (0.20-1.00); Monocytes % (A) 6.9 %; NRBC Per 100 WBC 0 X 10*3/uL (0.00-0.01); Neutrophils # (A) 5.66 X 10*3/uL (1.80-7.70); Neutrophils % (A) 68.9 %; Platelet Count 309 X 10*3/uL (140-440); RBC 4.69 X 10*6/uL (4.10-5.20); RDW 12.9 % (11.5-14.5); WBC 8.22 X 10*3/uL (4.50-10.00)
[2025-05-16 16:09] LABS: ALT 19 U/L (8-44); AST 26 U/L (13-35); Albumin 4.2 g/dL (3.8-4.9); Albumin/Globulin Ratio 1.45 Ratio (1.60-3.17); Alkaline Phosphatase 129 U/L (41-126); Anion Gap 10.50 mmol/L (4.00-12.00); BUN/Creat Ratio 12.29 Ratio (12.00-20.00); Blood Urea Nitrogen 8.6 mg/dL (9.0-27.0); Calcium 8.9 mg/dL (8.7-10.3); Carbon Dioxide 23.5 mmol/L (21.6-31.8); Chloride 104 mmol/L (96-109); Cholesterol 152.00 mg/dL (0.00-200.00); Globulin 2.9 g/dL (1.6-3.3); Glucose 88 mg/dL (70-110); HDL Cholesterol 52.20 mg/dL (40.00-60.00); LDL Cholesterol,Calculated 88.5 mg/dL (0.0-131.0); Potassium 4.0 mmol/L (3.5-5.5); Sodium 138 mmol/L (135-145); Total Protein 7.1 g/dL (6.2-8.2); Triglycerides 56.50 mg/dL (0.00-149.00); VLDL Calculation 11.30 mg/dL (5.00-40.00)
== END | disposition home or self-care (01) ==
LOC: LABWHC1 09:12
PROVIDERS: ATTEND Family Medicine
DX: Z00.00 Encounter for general adult medical examination without abnormal findings (principal)
CPT/HCPCS: 36415; 80053; 80061; 82306; 84443; 85025